=== PATIENT | female | born 1950 | race African-American/Black ===

== ENCOUNTER 2018-01-16 13:53 | Emergency (ER) | payer MEDICARE, OTHER, SELFPAY ==
[2018-01-16 14:10] VITALS: BP 150/92; PULSE 73; RESP 18; TEMP 36.6; O2SAT 96; BMI 41.1
[2018-01-16] MEDS: PROPARACAINE 0.5% OPHTH SOL 1 DROPS EYE-LEFT (14:13)
--- NOTE | 2018-01-16 14:54 | ED_ITS ---
HPI - Eye Problem <BRENDA Rodriguez - Last Filed: 01/16/18 15:45> General Chief complaint: Eye Problems Stated complaint: left eye pain Time Seen by Provider: 01/16/18 14:26 Source: patient Mode of arrival: ambulatory Limitations: no limitations History of Present Illness HPI Narrative: sudden onset of L eye pain, no injury, and denies any other issues/concerns chief complaint: eye pain and eye redness Onset (ago): day(s) (today) Onset description: sudden Duration: constant Location: left eye Eye Symptoms: foreign body sensation Mechanism: none Severity: moderate Associated symptoms: none Treatments Prior to Arrival: none Related Data Home Medications Medication Instructions Recorded Confirmed amlodipine-olmesartan 1 tab PO QDAY #0 12/03/16 Previous Rx's Medication Instructions Recorded amoxicillin-pot clavulanate 875 mg PO BID 10 Days #0 tab 11/29/16 [Augmentin] ciprofloxacin HCl [Cipro] 500 mg PO BID #20 tab 12/03/16 hydrocodone-acetaminophen [[place]] 1 tab PO Q4HP PRN #7 tab 12/03/16 ondansetron [Zofran ODT] 4 mg SUBLINGUAL Q6HP PRN #20 odt 12/03/16 tamsulosin [Flomax] 0.4 mg PO QDAY #14 cap 12/03/16 gentamicin [Gentak] 0.5 inch EYE-LEFT TID #3.5 gram 01/16/18 tramadol [Ultram] 50 mg PO Q6H PRN #10 tab 01/16/18 Allergies Allergy/AdvReac Type Severity Reaction Status Date / Time No Known Drug Allergies Allergy Verified 01/16/18 14:11 Review of Systems <BRENDA Rodriguez - Last Filed: 01/16/18 15:45> Review of Systems All systems reviewed & are unremarkable except as noted in HPI and below Constitutional Reports as per HPI, Reports system reviewed and no additional complaints, except as docu and Denies headache(s) Eyes Reports as per HPI, Denies blind spots, Denies blurry vision, Denies change in vision, Denies eye discharge, Denies floaters, Reports irritation, Denies itchy eyes, Denies loss of peripheral vision, Denies loss of vision, Reports eye pain , Denies requires corrective lenses and Denies photophobia ENT Ears, Nose, Mouth, and Throat: Reports as per HPI, Denies facial pain, Denies headache(s) and Denies neck pain Musculoskeletal Denies neck pain Integumentary/Breasts Denies lesions Neurologic Denies headache(s) and Denies loss of vision Allergic/Immunologic Denies itchy eyes Exam <Lizeth BRENDA Hernandes - Last Filed: 01/16/18 15:45> Initial Vital Signs Initial Vital Signs: Vital Signs Temperature 97.9 F 01/16/18 14:10 Pulse Rate 73 01/16/18 14:10 Respiratory Rate 18 01/16/18 14:10 Blood Pressure 150/92 H 01/16/18 14:10 Pulse Oximetry 96 01/16/18 14:10 Const General: cooperative, healthy appearing, comfortable, well developed and well groomed Nutritional Appearance: obese (mild) Orientation: alert, awake and oriented x3 HENMT Head: normal to inspection, normocephalic and atraumatic Ears: hearing grossly normal bilaterally Nose: external nose normal Face and sinus: normal facial exam Mouth: oral mucosae normal and lip normal Eyes General: appearance normal, both eyes and all related structures Visual Devine: normal visual devine by confrontation Alignment and Position: alignment normal and position normal Periorbital: periorbital findings normal Eyelids: eyelids normal Conjunctivae: conjunctivae normal Sclera: sclerae normal Cornea: fluorescein used (L eye examined under wood lamp (black light) using properacaine gtts and fluorescein stain strip, abrasion seen running diagonally across iris) Pupils: PERRL, normal by confrontation and accommodation normal EOM: EOM intact bilaterally Neck Neck: normal visual inspection and full ROM Resp Effort & Inspection: normal respiratory effort and able to speak in complete sentences Back/Spine/Pelvis Cervical Spine: cervical ROM normal Thoracic/Lumbar Spine: thoraco-lumbar ROM limited Skin General: no rashes or lesions noted, elasticity normal and turgor normal Neuro General: alert, awake and oriented x3 Cranial Nerves: CN's II-XI intact bilaterally Cognition: normal cognition Speech: speech normal Gait: normal gait Motor: muscle tone normal throughout Sensory Exam: no sensory deficits noted Extrem General: normal to inspection and full ROM Psych Appearance: grossly normal Mental Status: mental status grossly normal Speech and Movement: speech and movement normal Mood: congruent mood Affect: normal affect Attitude: cooperative Thought Process: normal Thought Content: normal <Zulema Lopez DO - Last Filed: 01/17/18 08:14> Initial Vital Signs Initial Vital Signs: Vital Signs Temperature 97.9 F 01/16/18 14:10 Pulse Rate 73 01/16/18 14:10 Respiratory Rate 18 01/16/18 14:10 Blood Pressure 150/92 H 01/16/18 14:10 Pulse Oximetry 96 01/16/18 14:10 Course <BRENDA Rodriguez - Last Filed: 01/16/18 15:45> Orders Ordered: Discontinued Medications Proparacaine HCl (Parcaine 0.5% Ophth Kathleen) 1 drops EYE-LEFT NOW ONE Stop: 01/16/18 14:12 Last Admin: 01/16/18 14:13 Dose: 1 drop Vital Signs - 8 hr 01/16/18 14:10 01/16/18 15:19 Temperature 97.9 F Pulse Rate 73 64 Respiratory Rate 18 Blood Pressure 150/92 H Blood Pressure [Left Arm] 126/77 Pulse Oximetry 96 96 <Zulema Lopez DO - Last Filed: 01/17/18 08:14> Orders Ordered: Discontinued Medications Proparacaine HCl (Parcaine 0.5% Ophth Kathleen) 1 drops EYE-LEFT NOW ONE Stop: 01/16/18 14:12 Last Admin: 01/16/18 14:13 Dose: 1 drop Vital Signs - 8 hr 01/16/18 14:10 01/16/18 15:19 Temperature 97.9 F Pulse Rate 73 64 Respiratory Rate 18 Blood Pressure 150/92 H Blood Pressure [Left Arm] 126/77 Pulse Oximetry 96 96 MDM - Eye Problem <BRENDA Rodriguez - Last Filed: 01/16/18 15:45> Differential Diagnosis Likely corneal abrasion, conjunctivitis, acute iritis and glaucoma Discharge Plan Departure Patient Disposition: Home Clinical Impression: Corneal abrasion Discharge Date/Time: 01/16/18 15:25 Interventions: ED Discharge Assessment Last Done: 01/16/18 15:25 Instructions: DI for Corneal Abrasion Prescriptions: New gentamicin [Gentak] 0.3 % (3 mg/gram) ointment 0.5 inch EYE-LEFT TID Qty: 3.5 RF: 0 tramadol [Ultram] 50 mg tablet 50 mg PO Q6H PRN (Reason: pain) Qty: 10 RF: 0 No Action amoxicillin-pot clavulanate [Augmentin] 875 MG/125 MG tablet 875 mg PO BID 10 Days Qty: 0 RF: 0 amlodipine-olmesartan 10 MG/20 MG tablet 1 tab PO QDAY Qty: 0 RF: 0 hydrocodone-acetaminophen [[place]] 5 MG/325 MG tablet 1 tab PO Q4HP PRNQty: 7 RF: 0 ciprofloxacin HCl [Cipro] 500 MG tablet 500 mg PO BID Qty: 20 RF: 0 tamsulosin [Flomax] 0.4 MG capsule,extended release 24hr 0.4 mg PO QDAY Qty: 14 RF: 0 ondansetron [Zofran ODT] 4 MG tablet,disintegrating 4 mg Sublingual Q6HP PRNQty: 20 RF: 0 Referrals: Edi Patel MD [Non-Staff] - Mauricio Doyle MD [Non-Staff] - None (would recommend follow in 1-2 days for recheck ) Provider,Conversion [Non-Staff] - Matthew Barraza MD [Non-Staff] - <Zulema Lopez DO - Last Filed: 01/17/18 08:14> Cosign ED Attending Cosignature Attestation: I was immediately available in the department for consultation. Documentation has been reviewed. I agree with assessment and plan.
[2018-01-16 15:19] VITALS: BP 126/77; PULSE 64; O2SAT 96
== END 2018-01-16 15:25 | disposition home or self-care (01) ==
PROVIDERS: Emergency Provider Nurse Practitioner
DX: S05.02XA Injury of conjunctiva and corneal abrasion without foreign body, left eye, initial encounter (principal)
CPT/HCPCS: 99283

== ENCOUNTER 2019-02-21 13:19 | Emergency (ER) | payer MEDICARE, OTHER, SELFPAY ==
--- NOTE | 2019-02-21 | DI.CT.S_ITS ---
PROCEDURE: CT HEAD/BRAIN WO CON INDICATIONS: VERTIGO TECHNIQUE: Noncontrast 4.5 mm thick angled axial sections acquired from the foramen magnum to the vertex, with coronal and sagittal reformats. For radiation dose reduction, the following was used: automated exposure control, adjustment of mA and/or kV according to patient size. COMPARISON: None. FINDINGS: Image quality: Excellent. CSF spaces: Basal cisterns are patent. No extra-axial fluid collections. Ventricles are normal in size and shape. Brain: No midline shift. No intracranial masses or hemorrhage. Harry-white matter interface is normal. Calcification in the right parietal lobe/tentorium. Left basal ganglia calcification. Periventricular hypodensity consistent with chronic micro-vascular ischemic disease. Skull and face: Calvarium and visualized facial bones are intact, without suspicious lesions. Sinuses: Visualized sinuses and mastoids are clear. IMPRESSION: No acute intracranial abnormality demonstrated. Dictated by: Abiodun Quinonez M.D. on 02/21/2019 at 14:55 Approved by: Abiodun Quinonez M.D. on 02/21/2019 at 14:57
[2019-02-21 13:41] VITALS: BP 155/91; PULSE 66; RESP 15; TEMP 36.9; O2SAT 98; BMI 43.9
--- NOTE | 2019-02-21 14:02 | ED.DIZZY ---
HPI - Dizziness General Chief Complaint: Dizziness Stated Complaint: vertigo,unsteady Time Seen by Provider: 02/21/19 14:02 Source: patient and family Mode of arrival: Wheelchair Limitations: no limitations History of Present Illness HPI Narrative: This is a 69-year-old female comes to the emergency department with complaint of vertigo like symptoms. Patient states it feels like the room is spinning. When she is lying flat moves her head or if she stands up and tries to walk she feels very off balance. Patient states she has had similar symptoms in the past but not this intense or for this long.. Patient states symptoms started on Wednesday she states with prior episodes she has never taken medication or come to the hospital or been evaluated. She denies headache. She denies any vision changes. She denies any cold cough or congestion or nasal drainage. Patient any facial droop or difficulty with speech. She denies any numbness or weakness in her extremities or feeling weak on the left versus right side. She states she had a little bit of nausea earlier today but not currently. She has not had any vomiting. Denies issues with bowel movements, denies issues with urination. Patient states she takes medication for blood pressure. She denies surgery except for a small cyst removed from her anterior chest couple weeks ago. No tobacco, alcohol or illicit. Related Data Home Medications Medication Instructions Recorded Confirmed Calcium Tablet 1 tab PO DAILY 02/21/19 02/21/19 Excedrin Tablet 1 tab PO PRN PRN 02/21/19 02/21/19 allopurinol 300 mg PO DAILY 02/21/19 02/21/19 benazepril 20 mg PO DAILY 02/21/19 02/21/19 indomethacin 25 mg PO TID PRN 02/21/19 02/21/19 Previous Rx's Medication Instructions Recorded meclizine 25 mg PO TID PRN #20 tab 02/21/19 Allergies Allergy/AdvReac Type Severity Reaction Status Date / Time No Known Drug Allergies Allergy Verified 02/21/19 13:41 Review of Systems Review of Systems ROS Unobtainable: All systems reviewed & are unremarkable except as noted in HPI and below Constitutional Constitutional: Denies chills, Denies fever(s), Denies frequent falls, Denies headache(s), Denies lethargy and Denies weakness Eyes Eyes: Denies blurry vision and Denies change in vision ENT Ears, Nose, Mouth, and Throat: Denies abnormal hearing, Reports vertigo, Denies otalgia, Denies headache(s), Denies nasal congestion, Reports disequilibrium and Denies post nasal drip Cardiovascular Cardiovascular: Denies chest pain, Denies diaphoresis, Denies syncope, Denies irregular heart rhythm, Denies lightheadedness, Denies palpitations, Denies dyspnea and Denies dyspnea on exertion Respiratory Respiratory: Denies change in phlegm color, Denies chest congestion, Denies cough, Denies dyspnea and Denies dyspnea on exertion Gastrointestinal Gastrointestinal: Denies abdominal pain, Denies change in bowel habits, Denies constipation, Denies diarrhea, Reports nausea and Denies vomiting Genitourinary Genitourinary: Denies hematuria, Denies urinary frequency, Denies dysuria, Denies flank pain and Denies urinary urgency Musculoskeletal Musculoskeletal: Reports as per HPI, Denies abnormal gait, Denies muscle weakness, Denies numbness and Denies tingling Integumentary/Breasts Skin/Breast: Denies erythema and Denies rash Neurologic Neurologic: Reports as per HPI, Denies abnormal hearing, Denies abnormal speech, Denies abnormal gait, Denies confusion, Reports vertigo, Denies syncope, Denies frequent falls, Denies headache(s), Denies focal weakness, Denies numbness, Denies sensory deficit, Denies tingling, Denies paresthesias, Reports disequilibrium and Denies weakness Psychiatric Psychiatric: Denies confusion Endocrine Endocrine: Denies palpitations Patient History Medical History (Updated 02/21/19 @ 14:27 by Bela Hughes DO) Hypertension (Acute) Social History (Updated 02/21/19 @ 14:25 by Bela Hughes DO) marital status: Smoking Status: Never smoker alcohol intake frequency: holidays/special occasions only Substance Use Type: does not use Exam Narrative Exam Narrative: GEN: well nourished, well appearing obese female, alert and oriented x 3, patient appears to be in mild distress. HEENT: Atraumatic, pupils are equal round reactive to light, extraocular movements are intact, no nystagmus, nares are clear, TMs are clear with no fluid, there is no conjunctival pallor. Throat is clear without any exudates, erythema, tonsillar enlargement or uvular deviation HEART: Regular rate and rhythm without murmur, clicks, rubs. Pulses are equal in upper and lower extremities LUNGS:Lungs clear to auscultation, no wheezes, rales, crackles, chest moves symmetrically, no tachypnea or accessory muscle use. ABD:bowel sounds normal, soft, non-tender, no guarding, rebound, rigidity, no masses noted, no hepatosplenomegaly :No CVA tenderness, MSCL: Non-tender, no muscle atrophy, muscles strength 5/5 upper and lower extremities, full range of motion NEURO:CN 2-12 intact, sensation normal, reflexes 2/4 upper and lower extremities. finger nose finger test normal, heel carlton test normal SKIN: Petechiae, no ecchymosis, no erythema or rash. Initial Vital Signs Initial Vital Signs: Vital Signs Temperature 98.4 F 02/21/19 13:41 Pulse Rate 66 02/21/19 13:41 Respiratory Rate 15 02/21/19 13:41 Blood Pressure 155/91 H 02/21/19 13:41 Pulse Oximetry 98 02/21/19 13:41 Scores NIH Stroke Scale Level of Conciousness: Alert, keenly responsive Ask month/age: Answers both questions correctly. Open/close eyes, close hand: Performs both tasks correctly Best gaze horizontal: Normal Visual cho: No visual loss Facial palsy: Normal symetrical movement Left arm drift: No drift for full 10 sec Right arm drift: No drift for full 10 sec Left leg drift: No drift for full 10 sec Right leg drift: No drift for full 10 sec Limb ataxia: Absent Sensory on face/arms/legs: Normal, no sensory loss Best language: No aphasia, normal Dysarthria: Normal Extinction or inattention: No abnormality Total NIH Stroke scale score: 0 Course Orders Ordered: ED Orders 02/21/19 13:44 EKG-12 Lead Stat 02/21/19 14:20 XR chest 1V Stat 02/21/19 15:16 Complete Blood Count AUTO DIFF Stat Comprehensive Metabolic Panel Stat Troponin I Stat Discontinued Medications Sodium Chloride (Normal Saline 0.9%) 1,000 mls @ 150 mls/hr IV CONT LAVELL Last Infusion: 02/21/19 16:45 Dose: 150 mls/hr Documented by: Admin: 02/21/19 15:18 Dose: 150 mls/hr Documented by: BTONER Meclizine HCl (Antivert) 50 mg PO NOW ONE Stop: 02/21/19 14:22 Last Admin: 02/21/19 15:02 Dose: 50 mg Documented by: TIANA Vital Signs Vital signs: Vital Signs - 8 hr 02/21/19 13:41 02/21/19 14:16 02/21/19 15:00 Temperature 98.4 F Pulse Rate 66 59 L 65 Respiratory Rate 15 13 18 Blood Pressure 155/91 H Blood Pressure [Right Arm] 157/83 H 152/85 H Pulse Oximetry 98 97 02/21/19 16:45 Temperature Pulse Rate 64 Respiratory Rate 19 Blood Pressure 133/82 Blood Pressure [Right Arm] Pulse Oximetry 96 MDM - Dizziness Lab Data Result diagrams: 02/21/19 15:16 02/21/19 15:16 Labs: Lab Results 02/21/19 02/21/19 Range/Units 15:16 15:16 WBC 5.3 (4.5-11.0) X10^3/uL RBC 5.55 H (4.0-5.2) X10^6/uL Hgb 13.3 (12.0-16.0) g/dL Hct 40.6 (36-46) % MCV 73.1 L (80-100) fL MCH 24.0 L (26-34) PG MCHC 32.8 (30-36) % RDW 17.5 H (11.6-14.8) % Plt Count 284 (150-400) X10^3/uL Neut % (Auto) 58.0 (50-75) % Lymph % (Auto) 32.9 (25-40) % [place] % (Auto) 6.3 (3-14) % Eos % (Auto) 1.6 L (2-4) % Baso % (Auto) 1.2 (0-2) % Neut # (Auto) 3100 (8899-1528) /uL Lymph # (Auto) 1700 (9537-1085) /uL [place] # (Auto) 300 (0-900) /uL Eos # (Auto) 100 (0-450) /uL Baso # (Auto) 100 (0-100) /uL Sodium 141 (137-145) mmol/L Potassium 4.3 (3.4-5.1) mmol/L Chloride 106 (98-107) mmol/L Carbon Dioxide 26 (22-32) mmol/L BUN 12 (7-17) mg/dL Creatinine 1.10 H (0.52-1.04) mg/dL Estimated GFR 49.1 L (>60) mL/min BUN/Creatinine Ratio 10.9 (6-22) Glucose 111 H (80-110) mg/dL Calcium 9.6 (8.4-10.2) mg/dL Total Bilirubin 0.4 (0.2-1.3) mg/dL AST 30 (14-36) IU/L ALT 27 (<35) IU/L Alkaline Phosphatase 82 (38-126) U/L Troponin I < 0.012 (0.01-0.034) ng/mL Total Protein 7.6 (6.3-8.2) g/dL Albumin 4.3 (3.5-5.0) g/dL Globulin 3.3 (1.7-4.1) g/dL Albumin/Globulin Ratio 1.3 (1.0-2.8) MDM Narrative Medical decision making narrative: Patient likely is having recurrence of her typical vertigo symptoms although this has been longer and more intense than past episodes. She does not have any neurologic changes that are suspicious for stroke today but plan for imaging, and lab work as patient has had symptoms intermittently over the past but has never been evaluated. Patient is feeling better while she sits. Head CT and chest x-ray are negative, EKG does not show any acute findings that are suspicious for cause of her vertigo like symptoms. Lab work microcytic but she is not anemic. No elevated white count. Patient's electrolytes are normal, creatinine is 1.1 but her normal baseline is 1 so this is quite close to her normal. Glucose is 111 today. LFTs are normal with a normal troponin. Discussed with patient I suspect she is having recurrence of her vertigo. Plan to continue meclizine, follow up with ENT. We discussed signs and symptoms to watch for and reasons to return emergently. She did feel safe to return home today. Discharge Plan Departure Patient Disposition: Home Clinical Impression: Vertigo Discharge Date/Time: 02/21/19 16:46 Activity Restrictions/Additional Instructions: Follow-up with primary care in the next 2-3 days for recheck. You may wish to follow up with ENT regarding vertigo for further evaluation. Call for an appointment at the number occluded below. You may take meclizine 1-2 tablets every 8 hours as needed for symptoms. Return to the emergency department for fevers greater 100.4F, altered mental status, confusion, new vision changes, new weakness, numbness, loss of sensation, difficulty with speech, persistent vomiting or other new or concerning symptoms. Prescriptions: New meclizine 25 mg tablet,chewable 25 mg PO TID PRN (Reason: dizziness) Qty: 20 RF: 0 No Action indomethacin 25 mg capsule 25 mg PO TID PRN (Reason: pain) RF: 0 benazepril 20 mg tablet 20 mg PO DAILY RF: 0 allopurinol 300 mg tablet 300 mg PO DAILY RF: 0 Calcium Tablet 1 tab PO DAILY RF: 0 Excedrin Tablet 1 tab PO PRN PRN (Reason: Headache) RF: 0 Referrals: Don Chacon MD [Physician] -
[2019-02-21 14:16] VITALS: BP 157/83; PULSE 59; RESP 13; O2SAT 97
--- NOTE | 2019-02-21 14:20 | DI.RAD.S_ITS ---
PROCEDURE: XR CHEST 1V INDICATIONS: vertigo symptoms TECHNIQUE: One view of the chest was acquired. COMPARISON: Lung bases on CT . FINDINGS: Surgical changes and devices: None. Lungs and pleura: Lungs are clear. No pleural effusions or pneumothorax. Mediastinum: Mediastinal contours appear normal. Small hiatal hernia seen on prior CT is not well appreciated. Heart size is normal. Bones and chest wall: No suspicious bony lesions. Overlying soft tissues appear unremarkable. IMPRESSION: No acute cardiopulmonary abnormality. Dictated by: Abiodun Quinonez M.D. on 02/21/2019 at 15:01 Approved by: Abiodun Quinonez M.D. on 02/21/2019 at 15:01
[2019-02-21 15:00] VITALS: BP 152/85; PULSE 65; RESP 18
[2019-02-21] MEDS: MECLIZINE HCL 12.5 MG TABLET 50 MG PO (15:02)
[2019-02-21] MEDS: SODIUM CHLORIDE 0.9% 1,000 ML 150 ML IV (15:18)
[2019-02-21 15:23] LABS: Add Manual Diff / Slide Review NO; Basophils Absolute Auto 100 /uL (0-100); Basophils Percent Auto 1.2 % (0-2); Eosinophils Absolute Auto 100 /uL (0-450); Eosinophils Percent Auto 1.6 % (2-4); Hematocrit 40.6 % (36-46); Hemoglobin 13.3 g/dL (12.0-16.0); Lymphocytes Absolute Auto 1700 /uL (1100-4500); Lymphocytes Percent Auto 32.9 % (25-40); Mean Corpuscular HGB Conc 32.8 % (30-36); Mean Corpuscular Volume 73.1 fL (80-100); Monocytes Absolute Auto 300 /uL (0-900); Monocytes Percent Auto 6.3 % (3-14); Neutrophils Absolute Auto 3100 /uL (1500-7000); Platelet Count 284 X10^3/uL (150-400); Red Blood Cell Count 5.55 X10^6/uL (4.0-5.2); Red Cell Distribution Width 17.5 % (11.6-14.8); White Blood Cell Count 5.3 X10^3/uL (4.5-11.0)
[2019-02-21 15:45] LABS: Alanine Aminotransferase 27 IU/L (<35); Albumin 4.3 g/dL (3.5-5.0); Albumin Globulin Ratio 1.3 (1.0-2.8); Alkaline Phosphatase 82 U/L (38-126); Aspartate Aminotransferase 30 IU/L (14-36); BUN Creatinine Ratio 10.9 (6-22); Bilirubin Total 0.4 mg/dL (0.2-1.3); Blood Urea Nitrogen 12 mg/dL (7-17); Calcium 9.6 mg/dL (8.4-10.2); Carbon Dioxide 26 mmol/L (22-32); Chloride 106 mmol/L (98-107); Estimated Glomerular Filt Rate 49.1 mL/min (>60); Globulin 3.3 g/dL (1.7-4.1); Glucose 111 mg/dL (80-110); HEMOLYSIS < 15 (0-50); Potassium 4.3 mmol/L (3.4-5.1); Sodium 141 mmol/L (137-145); Total Protein 7.6 g/dL (6.3-8.2)
[2019-02-21 15:57] LABS: Troponin I < 0.012 ng/mL (0.01-0.034)
[2019-02-21 16:45] VITALS: BP 133/82; PULSE 64; RESP 19; O2SAT 96
== END 2019-02-21 16:46 | disposition home or self-care (01) ==
PROVIDERS: Emergency Provider Emergency Medicine
DX: R42 Dizziness and giddiness (principal); R11.0 Nausea; R79.89 Other specified abnormal findings of blood chemistry
CPT/HCPCS: 36415; 70450; 71045; 80053; 84484; 85025; 93005; 96360; 99283; 99285

== ENCOUNTER 2019-04-03 07:09 | Day surgery (SDC) | payer MEDICARE, OTHER, SELFPAY ==
[2019-04-03] VITALS (14 sets, daily range): BP systolic 66–100; BP diastolic 36–65; PULSE 81–109; RESP 17–23; TEMP 35.9–36.6; O2SAT 92–98; BMI 44.0
[2019-04-03] MEDS: SODIUM CHLORIDE 0.9% 1,000 ML 200 ML IV ×2 (07:55→08:44)
--- NOTE | 2019-04-03 08:01 | SUR.PREOP ---
Pt reported feeling tired. BP monitor placed. IV fluids running
--- NOTE | 2019-04-03 08:23 | PM.HP.1 ---
History of Present Illness History of Present Illness Date Patient Seen: 04/03/19 Time Patient Seen: 08:32 Chief complaint: [id number] Narrative: Patient presents for colorectal screening. They had a prior colonoscopy 10 years ago that was normal. No personal or family history of colon cancer. On further history denies any recent gastrointestinal symptoms. No nausea, vomiting, abdominal pain, loss of appetite, unexplained weight loss, change in bowel habits, diarrhea, constipation, melena, hematochezia, or bright red blood per rectum. Patient History Medical History Hypertension (Acute) Refusal of blood transfusions as patient is [employer] (Acute) Surgical History History of hysterectomy (Acute) Family & Social History Tobacco & Substance use: Smoking Status Never smoker alcohol intake frequency holiday/special occasion Substance Use Type does not use Meds Home Medications and Allergies Home Medications Medication Instructions Recorded Confirmed Type allopurinol 300 mg PO DAILY 02/21/19 04/03/19 History benazepril 20 mg PO DAILY 02/21/19 04/03/19 History calcium carbonate [Calcium 600] 600 mg PO BID 02/21/19 04/03/19 History indomethacin 25 mg PO TID PRN 02/21/19 04/03/19 History meclizine 25 mg PO TID PRN #20 tab 02/21/19 04/03/19 Rx hydrochlorothiazide 12.5 mg PO DAILY 04/03/19 04/03/19 History Allergies Allergy/AdvReac Type Severity Reaction Status Date / Time No Known Drug Allergies Allergy Verified 04/03/19 07:30 Review of Systems Review of Systems Narrative: A complete review of systems is negative except as noted in the HPI Exam Vital Signs (past 8 hours): - 04/03/19 07:48 04/03/19 07:50 04/03/19 08:02 Temperature 97.2 F L Pulse Rate 109 H 109 H 101 H Respiratory Rate 20 Blood Pressure 68/36 L 66/43 L 77/49 L Pulse Oximetry 98 Oxygen Delivery Method Room Air Narrative Exam Narrative: General-no acute distress, well nourished HEENT-moist mucous membranes, no scleral icterus Neck-supple, no lymphadenopathy Chest- non labored respirations, clear to auscultation bilaterally Cardiac-regular rate no peripheral edema Abdomen-soft, nontender, non distended Extremities-warm, well perfused Neurological-alert and oriented, no focal deficits Assessment & Plan Assessment and plan (1) Screening for colon cancer: Current visit: Yes Status: Acute Assessment & Plan narrative: The patient requires colorectal screening and colonoscopy is recommended. Technical details were discussed. Risks, benefits, alternatives explained. Risks including but not limited to myocardial infarction, aspiration, bleeding, pain, missed lesion, incomplete examination, need for further radiographic studies, colonic perforation, and need for major abdominal surgery were discussed. All questions were answered to their satisfaction, and they are in agreement with this plan.
--- NOTE | 2019-04-03 08:28 | SUR.PREOP ---
Dr. Sánchez evaluated patient. Pressure bag applied to IV fluids per MD.
[2019-04-03] MEDS: fentaNYL 250 MCG/5 ML INJ IV (08:45)
[2019-04-03] MEDS: MIDAZOLAM 5 MG/5 ML VIAL IV (08:45)
--- NOTE | 2019-04-03 09:07 | PM.OP.ENDO ---
Operative Date/Time/Diagnoses Date of procedure: 04/03/19 Time of procedure: 09:07 Pre-op diagnosis: Screening colonoscopy Post-op diagnosis: same Procedure & Clinicians Study performed: Colonoscopy Same procedure as scheduled: Yes Indications: 69-year-old female with a normal colonoscopy 10 years ago presents for routine screening. Surgeon: Octavio Sánchez Procedure Notes SCOAP/Timeout: Performed Procedure in detail: Patient placed in left lateral decubitus position. Time out was performed. Procedural sedation was administered with Versed and Fentanyl. A rectal exam demonstrated no external hemorrhoids no internal masses. Colonoscopy scope was placed into the rectum and advanced through the colon to the cecum. The ileocecal valve was identified. The scope was then slowly withdrawn examining colon thoroughly in all directions. The colonoscopy was notable for the following 1. Sigmoid diverticulosis 2. No masses polyps 3. Quality of prep excellent Scope withdrawal time: 6 Sedation minutes: 18 Findings: diverticulosis Specimen(s): none sent Complications: none Impression: Diverticulosis Post-procedure Recommendations: Colonscopy in 10 years Disposition: same day surgery
--- NOTE | 2019-04-03 09:31 | SUR.PHASEI ---
sleeping on arrival, resp even and regular, skin warm and dry.
--- NOTE | 2019-04-03 09:58 | SUR.PHASEI ---
to OPD, denies dizziness or light-headedness, Tolerating PO well. Denies pain
== END 2019-04-03 10:20 | disposition home or self-care (01) ==
PROVIDERS: Visit Provider Surgery
PROC: 0DJD8ZZ Inspection of Lower Intestinal Tract, Via Natural or Artificial Opening Endoscopic (ICD-10-PCS; CPT 45378; principal; 2019-04-03 08:45)
DX: Z12.11 Encounter for screening for malignant neoplasm of colon (principal); I10 Essential (primary) hypertension; K57.30 Diverticulosis of large intestine without perforation or abscess without bleeding
CPT/HCPCS: G0121; 99152; J2250; J3010

== ENCOUNTER → 2020-05-30 10:26 | Outpatient (CLI) | payer MEDICARE, OTHER, SELFPAY ==
--- NOTE | 2020-05-30 | DI.MG.S_ITS ---
BILATERAL DIGITAL SCREENING MAMMOGRAM 3D/2D WITH CAD: 05/30/2020 CLINICAL: Routine screening. Comparison is made to exams dated: 03/14/2018 mammogram and 04/25/2019 mammogram - [facility]. The tissue of both breasts is heterogeneously dense. This may lower the sensitivity of mammography. Current study was also evaluated with a Computer Aided Detection (CAD) system. No significant masses, calcifications, or other findings are seen in either breast. There has been no significant interval change. IMPRESSION: NEGATIVE There is no mammographic evidence of malignancy. A 1 year screening mammogram is recommended. This exam was interpreted at Station ID: [id number]. NOTE: For mammograms, a report in lay terms will be sent to the patient. Approximately 15% of breast malignancies will not be visualized mammographically. In the management of a palpable breast mass, a negative mammogram must not discourage biopsy of a clinically suspicious lesion. Electronically Signed By: Davis dumont/salvatore:05/30/2020 13:45:25 letter sent: Normal Exam ACR BI-RADS Category 1: Negative [id number]
== END ==
PROVIDERS: PCP Internal Medicine; Referring Provider Internal Medicine; Visit Provider Internal Medicine
DX: Z12.31 Encounter for screening mammogram for malignant neoplasm of breast (principal)
CPT/HCPCS: 77063; 77067

== ENCOUNTER 2021-04-03 14:24 | Emergency (ER) | payer MEDICARE, OTHER, SELFPAY ==
[2021-04-03] VITALS (14 sets, daily range): BP systolic 150–246; BP diastolic 68–113; PULSE 54–60; RESP 14–29; TEMP 36.6; O2SAT 94–97
[2021-04-03] MEDS: diphenhydrAMINE 50 MG/ML VIAL 25 MG IV (14:49)
[2021-04-03] MEDS: FAMOTIDINE 20 MG/2 ML VIAL IV (14:49)
[2021-04-03] MEDS: methylPREDNISolone 125 MG/2 ML VIAL IV (14:51)
--- NOTE | 2021-04-03 15:06 | ED_ITS ---
HPI - Allergic Reaction <Kin Neely PA-C - Last Filed: 04/03/21 19:36> General Chief complaint: Allergic Reaction Stated complaint: Tongue is swollen Time Seen by Provider: 04/03/21 14:43 Source: patient Mode of arrival: Ambulatory History of Present Illness HPI narrative: Patient is a 71-year-old with history of hypertension presenting to the emergency department today for evaluation tongue began this. Patient states that she awoke with the tongue swelling is morning, but notes that the swelling has gradually worsened throughout the day. She notes that her time is swollen ?twice its normal size?. Of note, patient states that she has been taking benazepril for past 3 years. Patient denies any new medications or new foods and she states that she is never experienced symptoms like this in the past. Additionally, she does not report any known allergies. No fever, chills, chest pain, cough, shortness of breath, throat swelling, difficulty swallowing, abdominal pain, nausea, vomiting, diarrhea, dysuria, hematuria, rash, pruritus, or additional swelling elsewhere reported. No further concerns were voiced at this time. Related Data Home Medications Medication Instructions Recorded Confirmed allopurinol 300 mg tablet 300 mg PO DAILY 02/21/19 04/03/21 benazepril 20 mg tablet 20 mg PO DAILY 02/21/19 04/03/21 calcium carbonate 600 mg calcium 600 mg PO BID 02/21/19 04/03/21 (1,500 mg) tablet (Calcium) indomethacin 25 mg capsule 25 mg PO TID PRN 02/21/19 04/03/19 hydrochlorothiazide 12.5 mg capsule 12.5 mg PO DAILY 04/03/19 04/03/21 Previous Rx's Medication Instructions Recorded meclizine 25 mg chewable tablet 25 mg PO TID PRN #20 tab 02/21/19 amlodipine 2.5 mg tablet 2.5 mg PO DAILY #14 tab 04/03/21 Allergies Allergy/AdvReac Type Severity Reaction Status Date / Time No Known Drug Allergies Allergy Verified 04/03/21 14:34 Review of Systems <Kin Neely PA-C - Last Filed: 04/03/21 19:36> Constitutional Constitutional: Denies chills, Denies fatigue, Denies fever(s), Denies frequent falls, Denies lethargy and Denies weakness ENT Ears, Nose, Mouth, and Throat: Denies change in voice, Denies dizziness, Denies neck pain, Denies sore throat, Denies throat swelling and Reports tongue swelling Cardiovascular Cardiovascular: Denies chest pain, Denies irregular heart rhythm, Denies lightheadedness, Denies palpitations, Denies dyspnea, Denies dyspnea on exertion and Denies orthopnea Respiratory Respiratory: Denies cough, Denies dyspnea, Denies dyspnea on exertion and Denies wheezing Gastrointestinal Gastrointestinal: Denies abdominal pain, Denies change in bowel habits, Denies diarrhea, Denies nausea and Denies vomiting Genitourinary Genitourinary: Denies hematuria, Denies flank pain, Denies urinary incontinence and Denies urinary urgency Musculoskeletal Musculoskeletal: Denies back pain, Denies muscle weakness, Denies neck pain, Denies numbness and Denies tingling Integumentary/Breasts Skin/Breast: Denies pruritus, Denies erythema, Denies rash and Denies wounds Neurologic Neurologic: Denies dizziness, Denies frequent falls, Denies numbness, Denies tingling and Denies weakness Endocrine Endocrine: Denies fatigue and Denies palpitations Allergic/Immunologic Allergic/Immunologic: Denies urticaria, Denies throat swelling, Reports tongue swelling and Denies wheezing Patient History <Kin Neely PA-C - Last Filed: 04/03/21 19:36> Medical History Hypertension Refusal of blood transfusions as patient is [employer] Surgical History History of hysterectomy Social History marital status: Smoking Status: Never smoker Smoking Status: Never smoker alcohol intake frequency: holidays/special occasions only Substance Use Type: does not use Exam <Kin Neely PA-C - Last Filed: 04/03/21 19:36> Narrative Exam Narrative: GENERAL: 71 year old patient appears stated age. Well-developed patient, in mild distress. HEAD: Atraumatic. Normocephalic. EYES: Pupils equal round and reactive. Extraocular motions intact. No scleral icterus. No injection or drainage. ENT: Nose without bleeding, purulent drainage. Throat without erythema, tonsillar hypertrophy or exudate. Airway patent. Significant swelling noted throughout the tongue. NECK: Trachea midline. Non tender CARDIOVASCULAR: Regular rate and rhythm without murmurs, gallops, or rubs. RESPIRATORY: Clear to auscultation. Breath sounds equal bilaterally. No wheezes, rales, or rhonchi. No increased work of breathing, no respiratory distress. GASTROINTESTINAL: Abdomen soft, non-tender, nondistended. EXTREMITIES: No edema or joint tenderness. BACK: Nontender without deformity or crepitance. No flank tenderness. NEURO: AOx3. SKIN: No rash or erythema of visible areas Initial Vital Signs Initial Vital Signs: Vital Signs Temperature 98 F 04/03/21 14:32 Pulse Rate 55 L 04/03/21 14:32 Respiratory Rate 18 04/03/21 14:32 Blood Pressure 246/113 H 04/03/21 14:32 Pulse Oximetry 96 04/03/21 14:32 <Giovana Javier MD - Last Filed: 04/09/21 08:14> Initial Vital Signs Initial Vital Signs: Vital Signs Temperature 98 F 04/03/21 14:32 Pulse Rate 55 L 04/03/21 14:32 Respiratory Rate 18 04/03/21 14:32 Blood Pressure 246/113 H 04/03/21 14:32 Pulse Oximetry 96 04/03/21 14:32 Course <Kin Neely PA-C - Last Filed: 04/03/21 19:36> Course Course Narrative: Benadryl, Solu-Medrol, Pepcid, tranexamic acid, IV fluids administered. Orders Ordered: Discontinued Medications Diphenhydramine HCl (Diphenhydramine 50 Mg/Ml Vial) 25 mg IV NOW ONE Stop: 04/03/21 14:43 Last Admin: 04/03/21 14:49 Dose: 25 mg Documented by: AMOL Famotidine (Famotidine 20 Mg/2 Ml Vial) 20 mg IV NOW LAVELL Last Admin: 04/03/21 14:49 Dose: 20 mg Documented by: AMOL Tranexamic Acid 1,000 mg/ (Sodium Chloride) 100 mls @ 200 mls/hr IV NOW ONE Stop: 04/03/21 15:34 Last Infusion: 04/03/21 16:28 Dose: 0 mls/hr Documented by: Admin: 04/03/21 15:53 Dose: 200 mls/hr Documented by: AMOL Sodium Chloride (Normal Saline 0.9%) 1,000 mls @ 1,000 mls/hr IV BOLUS ONE Stop: 04/03/21 16:04 Last Infusion: 04/03/21 18:36 Dose: 0 mls/hr Documented by: Admin: 04/03/21 15:53 Dose: 1,000 mls/hr Documented by: AMOL Methylprednisolone (Methylprednisolone 125 Mg/2 Ml Vial) 125 mg IV NOW ONE Stop: 04/03/21 14:42 Last Admin: 04/03/21 14:51 Dose: 125 mg Documented by: AMOL Reevaluation(s) Reevaluation #1: Checked in on patient with Dr. Javier. TXA is approximately 50% completed and patient states that she is feeling better and believes that her tongue isn't as swollen as it originally was. On exam a the left lateral aspect of the tongue does appear less swollen than initially noted. Patient still denies sensations of throat swelling, shortness of breath, difficulty breathing, difficulty swallowing, rash, pruritus, or any other concerning symptoms. Time: 16:20 Vital Signs Vital signs: Vital Signs - 8 hr 04/03/21 14:32 04/03/21 15:34 04/03/21 16:00 Temperature 98 F Pulse Rate 55 L 55 L 54 L Respiratory Rate 18 14 19 Blood Pressure 246/113 H Pulse Oximetry 96 96 96 04/03/21 16:23 04/03/21 16:30 04/03/21 17:00 Temperature Pulse Rate 55 L 56 L 59 L Respiratory Rate 20 25 H 23 Blood Pressure 185/86 H 176/90 H Pulse Oximetry 95 96 95 04/03/21 17:01 04/03/21 17:30 04/03/21 17:31 Temperature Pulse Rate 59 L 60 60 Respiratory Rate 22 21 20 Blood Pressure 181/86 H 192/89 H Pulse Oximetry 95 97 97 04/03/21 18:00 04/03/21 18:01 04/03/21 18:30 Temperature Pulse Rate 60 60 59 L Respiratory Rate 16 17 29 H Blood Pressure 159/73 H Pulse Oximetry 96 96 97 04/03/21 18:31 04/03/21 19:04 Temperature Pulse Rate 59 L 59 L Respiratory Rate 26 H 16 Blood Pressure 163/74 H 150/68 H Pulse Oximetry 97 94 <Giovana Javier MD - Last Filed: 04/09/21 08:14> Orders Ordered: Discontinued Medications Diphenhydramine HCl (Diphenhydramine 50 Mg/Ml Vial) 25 mg IV NOW ONE Stop: 04/03/21 14:43 Last Admin: 04/03/21 14:49 Dose: 25 mg Documented by: AMOL Famotidine (Famotidine 20 Mg/2 Ml Vial) 20 mg IV NOW LAVELL Last Admin: 04/03/21 14:49 Dose: 20 mg Documented by: AMOL Tranexamic Acid 1,000 mg/ (Sodium Chloride) 100 mls @ 200 mls/hr IV NOW ONE Stop: 04/03/21 15:34 Last Infusion: 04/03/21 16:28 Dose: 0 mls/hr Documented by: Admin: 04/03/21 15:53 Dose: 200 mls/hr Documented by: AMOL Sodium Chloride (Normal Saline 0.9%) 1,000 mls @ 1,000 mls/hr IV BOLUS ONE Stop: 04/03/21 16:04 Last Infusion: 04/03/21 18:36 Dose: 0 mls/hr Documented by: Admin: 04/03/21 15:53 Dose: 1,000 mls/hr Documented by: AMOL Methylprednisolone (Methylprednisolone 125 Mg/2 Ml Vial) 125 mg IV NOW ONE Stop: 04/03/21 14:42 Last Admin: 04/03/21 14:51 Dose: 125 mg Documented by: AMOL Vital Signs Vital signs: Vital Signs - 8 hr 04/03/21 14:32 04/03/21 15:34 04/03/21 16:00 Temperature 98 F Pulse Rate 55 L 55 L 54 L Respiratory Rate 18 14 19 Blood Pressure 246/113 H Pulse Oximetry 96 96 96 04/03/21 16:23 04/03/21 16:30 04/03/21 17:00 Temperature Pulse Rate 55 L 56 L 59 L Respiratory Rate 20 25 H 23 Blood Pressure 185/86 H 176/90 H Pulse Oximetry 95 96 95 04/03/21 17:01 04/03/21 17:30 04/03/21 17:31 Temperature Pulse Rate 59 L 60 60 Respiratory Rate 22 21 20 Blood Pressure 181/86 H 192/89 H Pulse Oximetry 95 97 97 04/03/21 18:00 04/03/21 18:01 04/03/21 18:30 Temperature Pulse Rate 60 60 59 L Respiratory Rate 16 17 29 H Blood Pressure 159/73 H Pulse Oximetry 96 96 97 04/03/21 18:31 04/03/21 19:04 Temperature Pulse Rate 59 L 59 L Respiratory Rate 26 H 16 Blood Pressure 163/74 H 150/68 H Pulse Oximetry 97 94 MDM - Allergic Reaction <Kin Neely PA-C - Last Filed: 04/03/21 19:36> Lab Data Lab results narrative: Reviewed above prior to discharge. MDM Narrative Medical decision making narrative: To consider allergic reaction versus anaphylaxis versus angio edema verses Kevin inhibitor induced angioedema. Overall history in re-examination are reassuring. Discussed with the patient the importance of discontinuing benazepril and the importance of following up with her primary care provider tomorrow. Discussed with the patient beginning a low-dose amlodipine in place of her benazepril and patient agrees to plan. Patient states that she is feeling much better than when she arrived to the emergency department and feels comfortable being discharged home. Strict return precautions were discussed with the patient prior to discharge. Critical Care Time <Kin Neely PA-C - Last Filed: 04/03/21 19:36> Critical Care Time Critical Care Time: Yes Total Critical Care Time: 32 Attestation: Monitor patient for signs of deterioration. <Giovana Javier MD - Last Filed: 04/09/21 08:14> Critical Care Time Attestation: Monitor patient for signs of deterioration. Critical care time is separate from other billable procedures. There is a high probability of a significant, sudden or life-threatening deterioration that requires my full and direct attention, intervention and personal management. This critical care time includes consultation with family and other consulting doctors, review of records, and interpretation of data from labs, EKGs and imaging as well as managements of angioedema with increasing tongue swelling and concern for airway compromise Discharge Plan Departure Patient Disposition: Home Clinical Impression: Angioedema, Adverse reaction to drug Instructions: DI for Angioedema Activity Restrictions/Additional Instructions: *You have been diagnosed with angioedema *What to do: *Please continue to take your regular medications as directed. [X] New medication prescriptions sent to your pharmacy: [facility] - Amlodipine [ ] New medication written as a paper prescription [ ] No new medications given *Please follow up with your primary care provider in 2-3 days, call for an appointment. Let them know you were seen in the Emergency Department and that we ask that you be seen in follow up. We will electronically transmit a record of today's note if your PCP is in our system. *Please discontinue your benazepril. Bring this up to your primary care provider during your next scheduled appointment. *If you do not have a primary care provider please contact the [facility] Resource line at [phone]. They will ask some questions about your medical history and help get you set up with a doctor in the community. *Return to Emergency Department if you should have any new, worsening or concerning symptoms, such as fever greater than 101 F, shaking chills, worsening swelling, shortness of breath, throat swelling, difficulty breathing, persistent vomiting, or other bothersome symptoms. Prescriptions: New amlodipine 2.5 mg tablet 2.5 mg PO DAILY Qty: 14 0RF No Action hydrochlorothiazide 12.5 mg Capsule 12.5 mg PO DAILY 0RF indomethacin 25 mg capsule 25 mg PO TID PRN (Reason: pain) 0RF benazepril 20 mg tablet 20 mg PO DAILY 0RF Label Comments: take 1 tablet by mouth once daily for blood pressure allopurinol 300 mg tablet 300 mg PO DAILY 0RF calcium carbonate [Calcium 600] 600 mg calcium (1,500 mg) Tablet 600 mg PO BID 0RF meclizine 25 mg tablet,chewable 25 mg PO TID PRN (Reason: dizziness) Qty: 20 0RF Referrals: Mercedez Shepherd MD [Primary Care Provider] - <Giovana Javier MD - Last Filed: 04/09/21 08:14> Cosign ED Attending Cosmonishaature Attestation: I was immediately available in the department for consultation throughout this patient's visit. This patient was seen and examined independently and all portions of care were clearly reviews and overseen. I Agree with documentation as above. Giovana Javier MD
[2021-04-03] MEDS: TRANEXAMIC ACID 1,000 MG in SODIUM CHLORIDE 0.9% 100 ML 200 ML IV (15:53)
[2021-04-03] MEDS: SODIUM CHLORIDE 0.9% 1,000 ML 1000 ML IV (15:53)
--- NOTE | 2021-04-03 17:33 | PC.NURSE ---
Francheska reports some improvement of swelling in tongue after infusion of TXA.
== END 2021-04-03 19:05 | disposition home or self-care (01) ==
PROVIDERS: Emergency Provider Physician Assistant; PCP Internal Medicine
DX: T78.3XXA Angioneurotic edema, initial encounter (principal)
CPT/HCPCS: 36415; 96361; 96365; 96375; 99284; J1200; J2930

== ENCOUNTER 2021-05-11 19:50 | Observation (INO) | payer MEDICARE, OTHER, SELFPAY ==
[2021-05-11] VITALS (14 sets, daily range): BP systolic 135–204; BP diastolic 88–119; PULSE 60–81; RESP 14–18; TEMP 36.2; O2SAT 94–97; BMI 43.9
--- NOTE | 2021-05-11 20:06 | ED_ITS ---
HPI - Allergic Reaction General Chief complaint: Allergic Reaction Stated complaint: Lip/hands/feet swelling x7days Time Seen by Provider: 05/11/21 19:58 History of Present Illness HPI narrative: 71-year-old with history of hypertension presenting to the emergency department today for evaluation of swelling of her upper lip and right side of the face over the day. She denies any tongue or throat involvement and has no trouble breathing or rash. She was seen and evaluated about a week ago under relatively similar circumstances and was treated for angioedema thought to be related to the EDUARDO-inhibitor that she had been on. She responded to the medications and had significant improvement over the course of the visit. Her EDUARDO-inhibitor was discontinued and she had been in her normal state of health until earlier today as stated. She denies any pain, she has had no fever or chills. She is not dizzy nor weak or lightheaded Related Data Home Medications Medication Instructions Recorded Confirmed allopurinol 300 mg tablet 300 mg PO DAILY 02/21/19 04/03/21 benazepril 20 mg tablet 20 mg PO DAILY 02/21/19 04/03/21 calcium carbonate 600 mg calcium 600 mg PO BID 02/21/19 04/03/21 (1,500 mg) tablet (Calcium) indomethacin 25 mg capsule 25 mg PO TID PRN 02/21/19 04/03/19 hydrochlorothiazide 12.5 mg capsule 12.5 mg PO DAILY 04/03/19 04/03/21 Previous Rx's Medication Instructions Recorded meclizine 25 mg chewable tablet 25 mg PO TID PRN #20 tab 02/21/19 amlodipine 2.5 mg tablet 2.5 mg PO DAILY #14 tab 04/03/21 Allergies Allergy/AdvReac Type Severity Reaction Status Date / Time EDUARDO Inhibitors Allergy Swelling Verified 05/11/21 20:08 of Lip/Tongue/Throat Patient History Medical History Hypertension Refusal of blood transfusions as patient is Buddhist Surgical History History of hysterectomy Social History marital status: household members: family Smoking Status: Never smoker alcohol intake: current Smoking Status: Never smoker alcohol intake frequency: holidays/special occasions only Substance Use Type: does not use Exam Narrative Exam Narrative: GENERAL: [71] year old patient appears stated age. Well-developed patient, in mild distress. HEAD: Atraumatic. Normocephalic. EYES: Pupils equal round and reactive. Extraocular motions intact. No scleral icterus. No injection or drainage. ENT: Minimal right-sided facial swelling, no tenderness, erythema, induration or fluctuance to suggest infectious source. Swelling of upper lip on the right side to the midline, no intraoral involvement or tongue swelling. Airway patent, patient tolerating secretions Nose without bleeding, purulent drainage. Throat without erythema, tonsillar hypertrophy or exudate. Airway patent. NECK: Trachea midline. Non tender CARDIOVASCULAR: Regular rate and rhythm without murmurs, gallops, or rubs. RESPIRATORY: Clear to auscultation. Breath sounds equal bilaterally. No wheezes, rales, or rhonchi. GASTROINTESTINAL: Abdomen soft, non-tender, nondistended. EXTREMITIES: No edema or joint tenderness. BACK: Nontender without deformity or crepitance. No flank tenderness. NEURO: AOx3. SKIN: No rash or erythema of visible areas Initial Vital Signs Initial Vital Signs: Vital Signs Temperature 97.1 F L 05/11/21 20:02 Pulse Rate 73 05/11/21 20:02 Respiratory Rate 17 05/11/21 20:02 Blood Pressure 183/98 H 05/11/21 20:02 Pulse Oximetry 96 05/11/21 20:02 Course Orders Ordered: ED Orders 05/11/21 20:00 Complete Blood Count AUTO DIFF Stat Comprehensive Metabolic Panel Stat 05/11/21 20:06 Complement C3 Stat Complement C4 Stat 05/11/21 22:46 COVID19 -Nasal swab/Pre-Proc Stat Famotidine (Famotidine 20 Mg/2 Ml Vial) 20 mg IV NOW LAVELL Last Admin: 05/11/21 20:20 Dose: 20 mg Documented by: LORENZA Discontinued Medications Dexamethasone (Dexamethasone 10 Mg/Ml Vial) 10 mg IV NOW ONE Stop: 05/11/21 20:07 Last Admin: 05/11/21 20:20 Dose: 10 mg Documented by: LORENZA Diphenhydramine HCl (Diphenhydramine 50 Mg/Ml Vial) 25 mg IV NOW ONE Stop: 05/11/21 20:07 Last Admin: 05/11/21 20:20 Dose: 25 mg Documented by: LORENZA Tranexamic Acid 1,000 mg/ (Sodium Chloride) 100 mls @ 200 mls/hr IV NOW ONE Stop: 05/11/21 20:35 Last Infusion: 05/11/21 21:11 Dose: 0 mls/hr Documented by: Admin: 05/11/21 20:20 Dose: 200 mls/hr Documented by: LORENZA Reevaluation(s) Reevaluation #1: Patient has minimal change, and likely some worsening of her symptoms despite the above listed medications. She has no tongue or throat involvement, no trouble with secretions, no difficulty swallowing or breathing. Vital Signs Vital signs: Vital Signs - 8 hr 05/11/21 20:02 05/11/21 20:31 05/11/21 20:32 Temperature 97.1 F L Pulse Rate 73 73 74 Respiratory Rate 17 18 Blood Pressure 183/98 H 189/119 H Pulse Oximetry 96 95 94 05/11/21 20:37 05/11/21 21:00 05/11/21 21:30 Temperature Pulse Rate 70 60 61 Respiratory Rate Blood Pressure 199/108 H 200/103 H 196/104 H Pulse Oximetry 96 94 94 05/11/21 22:00 05/11/21 22:30 05/11/21 22:31 Temperature Pulse Rate 64 64 66 Respiratory Rate Blood Pressure 204/96 H 165/93 H Pulse Oximetry 94 94 95 05/11/21 22:45 Temperature Pulse Rate 63 Respiratory Rate 16 Blood Pressure 165/93 H Pulse Oximetry 97 MDM - Allergic Reaction Lab Data Result diagrams: 05/11/21 20:00 05/11/21 20:00 Labs: Lab Results 05/11/21 05/11/21 05/11/21 Range/Units 20:00 20:00 22:46 WBC 6.7 (4.5-11.0) X10^3/uL RBC 5.42 H (4.0-5.2) X10^6/uL Hgb 12.7 (12.0-16.0) g/dL Hct 38.9 (36-46) % MCV 71.8 L (80-100) fL MCH 23.4 L (26-34) PG MCHC 32.6 (30-36) % RDW 18.2 H (11.6-14.8) % Plt Count 305 (150-400) X10^3/uL Neut % (Auto) 58.3 (50-75) % Lymph % (Auto) 32.4 (25-40) % [place] % (Auto) 5.7 (3-14) % Eos % (Auto) 2.4 (2-4) % Baso % (Auto) 1.2 (0-2) % Neut # (Auto) 3900 (8521-9543) /uL Lymph # (Auto) 2200 (9976-7626) /uL [place] # (Auto) 400 (0-900) /uL Eos # (Auto) 200 (0-450) /uL Baso # (Auto) 100 (0-100) /uL Sodium 139 (137-145) mmol/L Potassium 4.0 (3.4-5.1) mmol/L Chloride 109 H (98-107) mmol/L Carbon Dioxide 24 (22-32) mmol/L BUN 26 H (7-17) mg/dL Creatinine 1.16 H (0.52-1.04) mg/dL Estimated GFR 45.9 L (>60) mL/min BUN/Creatinine Ratio 22.4 H (6-22) Glucose 82 (80-110) mg/dL Calcium 10.2 (8.4-10.2) mg/dL Total Bilirubin 0.4 (0.2-1.3) mg/dL AST 27 (14-36) IU/L ALT 30 (<35) IU/L Alkaline Phosphatase 99 (38-126) U/L Total Protein 7.7 (6.3-8.2) g/dL Albumin 4.4 (3.5-5.0) g/dL Globulin 3.3 (1.7-4.1) g/dL Albumin/Globulin Ratio 1.3 (1.0-2.8) SARS-CoV-2 (PCR) Negative (Negative) MDM Narrative Medical decision making narrative: Patient with presumed angioedema and slightly, and slowly worsening symptoms, cannot discharged home, will require hospitalization for ongoing evaluation and possible intervention Discharge Plan Departure Patient Disposition: Admitted as Observation Clinical Impression: Angio-edema Admit Date/Time: 05/11/21 23:15 Admit Provider: Shireen Reyna
[2021-05-11] MEDS: diphenhydrAMINE 50 MG/ML VIAL 25 MG IV (20:20)
[2021-05-11] MEDS: FAMOTIDINE 20 MG/2 ML VIAL IV (20:20)
[2021-05-11] MEDS: DEXAMETHASONE 10 MG/ML VIAL IV (20:20)
[2021-05-11] MEDS: TRANEXAMIC ACID 1,000 MG in SODIUM CHLORIDE 0.9% 100 ML 200 ML IV (20:20)
[2021-05-11 20:27] LABS: Add Manual Diff / Slide Review NO; Basophils Absolute Auto 100 /uL (0-100); Basophils Percent Auto 1.2 % (0-2); Eosinophils Absolute Auto 200 /uL (0-450); Eosinophils Percent Auto 2.4 % (2-4); Hematocrit 38.9 % (36-46); Hemoglobin 12.7 g/dL (12.0-16.0); Lymphocytes Absolute Auto 2200 /uL (1100-4500); Lymphocytes Percent Auto 32.4 % (25-40); Mean Corpuscular HGB Conc 32.6 % (30-36); Mean Corpuscular Hemoglobin 23.4 PG (26-34); Mean Corpuscular Volume 71.8 fL (80-100); Monocytes Absolute Auto 400 /uL (0-900); Monocytes Percent Auto 5.7 % (3-14); Neutrophils Absolute Auto 3900 /uL (1500-7000); Neutrophils Percent Auto 58.3 % (50-75); Platelet Count 305 X10^3/uL (150-400); Red Blood Cell Count 5.42 X10^6/uL (4.0-5.2); Red Cell Distribution Width 18.2 % (11.6-14.8); White Blood Cell Count 6.7 X10^3/uL (4.5-11.0)
[2021-05-11 20:28] LABS: Alanine Aminotransferase 30 IU/L (<35); Albumin 4.4 g/dL (3.5-5.0); Albumin Globulin Ratio 1.3 (1.0-2.8); Alkaline Phosphatase 99 U/L (38-126); Aspartate Aminotransferase 27 IU/L (14-36); BUN Creatinine Ratio 22.4 (6-22); Bilirubin Total 0.4 mg/dL (0.2-1.3); Blood Urea Nitrogen 26 mg/dL (7-17); Calcium 10.2 mg/dL (8.4-10.2); Carbon Dioxide 24 mmol/L (22-32); Chloride 109 mmol/L (98-107); Estimated Glomerular Filt Rate 45.9 mL/min (>60); Globulin 3.3 g/dL (1.7-4.1); Glucose 82 mg/dL (80-110); HEMOLYSIS < 15 (0-50); Sodium 139 mmol/L (137-145); Total Protein 7.7 g/dL (6.3-8.2)
[2021-05-11 23:10] LABS: COVID19 -Nasal RAPID Negative (Negative)
--- NOTE | 2021-05-12 01:18 | PM.HP.1 ---
History of Present Illness History of Present Illness Date Patient Seen: 05/12/21 Time Patient Seen: 01:18 Date of Onset of Symptoms: 05/11/21 Chief complaint: Lip/hands/feet swelling x7days Narrative: This is a very pleasant 71-year-old female who receives her primary care at the [facility] and she presents to the ER for evaluation of swelling of her lips and face. She had a similar episode in mid March and came to [facility] and was felt that she had angioedema related to benazepril. The benazepril was subsequently stopped and her symptoms went away. Her doctor prescribed amlodipine initially 5 mg prescribed in the ER here and then her doctor increased it to 10 mg. The patient had stopped her indomethacin as well but she saw her provider about a week ago and she said she could go ahead start taking her indomethacin. She took 1 that day and then she took another 1 this morning. She also takes allopurinol on a daily basis for prevention of gout. The patient states that on her lower lip started swelling and then at about 4:00 p.m. today she had sudden onset of her right upper lip and her face swelling. She presented to the ER for evaluation. She was given Decadron and diphenhydramine and famotidine. She was also at her previous visit given TXA but was not given that today. She is not feeling any better but is not feeling any worse. Due to the persistent swelling with worsening she was admitted for further observation. The patient denies any respiratory complaints. On her past ER visit she had swelling of her tongue and this time she does not. She denies any new exposures. Denies any new medications other than the amlodipine. 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 Past medical history: 1. Hypertension 2. Gout 3. Angioedema secondary to presumably benazepril 4. Impaired glucose tolerance Past surgical history: Patient has had a hysterectomy Health Related behavior: Patient does not smoke and never has. She rarely uses alcohol. Patient is sedentary Family history: Negative for asthma or allergies Social history: Patient has lived in [place] since 1986. She is living in [place] with her and her family. Patient is a practicing [employer] and would not want blood transfusions Review of systems: Denies fevers or rashes or headaches. No constitutional symptoms. No recent weight loss or weight gain. Patient was having some swelling of her legs and hands but this is resolved. This she thinks was related to her blood pressure and her blood pressure medication was increased and the symptoms got better. Patient denies cough or difficulty breathing Patient denies chest pain or decreased exercise tolerance, PND orthopnea Patient denies any GI symptoms Patient denies any urinary symptoms Patient History Medical History Hypertension Refusal of blood transfusions as patient is [employer] Surgical History History of hysterectomy Family & Social History Social History: household members family Prior Living Arrangements House Safety & Behavioral: Feels Safe in Current Yes Environment Been Physically Hurt or No Threatened By a Person Suicidal Ideation Description None Suicide Plan Description No Plan Tobacco & Substance use: Smoking Status Never smoker alcohol intake current alcohol intake frequency holiday/special occasion Substance Use Type does not use Meds Home Medications and Allergies Home Medications Medication Instructions Recorded Confirmed Type allopurinol 300 mg tablet 300 mg PO DAILY 02/21/19 04/03/21 History benazepril 20 mg tablet 20 mg PO DAILY 02/21/19 04/03/21 History calcium carbonate 600 mg calcium 600 mg PO BID 02/21/19 04/03/21 History (1,500 mg) tablet (Calcium) indomethacin 25 mg capsule 25 mg PO TID PRN 02/21/19 04/03/19 History meclizine 25 mg chewable tablet 25 mg PO TID PRN #20 tab 02/21/19 04/03/19 Rx hydrochlorothiazide 12.5 mg capsule 12.5 mg PO DAILY 04/03/19 04/03/21 History amlodipine 2.5 mg tablet 2.5 mg PO DAILY #14 tab 04/03/21 Rx Allergies Allergy/AdvReac Type Severity Reaction Status Date / Time EDUARDO Inhibitors Allergy Swelling Verified 05/11/21 20:08 of Lip/Tongue/Throat Review of Systems Review of Systems Narrative: 12 point review of systems is negative other than in HPI Exam Vital Signs (past 8 hours): - 05/11/21 20:02 05/11/21 20:31 05/11/21 20:32 Temperature 97.1 F L Pulse Rate 73 73 74 Respiratory Rate 17 18 Blood Pressure 183/98 H 189/119 H Pulse Oximetry 96 95 94 05/11/21 20:37 05/11/21 21:00 05/11/21 21:30 Temperature Pulse Rate 70 60 61 Respiratory Rate Blood Pressure 199/108 H 200/103 H 196/104 H Pulse Oximetry 96 94 94 05/11/21 22:00 05/11/21 22:30 05/11/21 22:31 Temperature Pulse Rate 64 64 66 Respiratory Rate Blood Pressure 204/96 H 165/93 H Pulse Oximetry 94 94 95 05/11/21 22:45 05/11/21 23:30 Temperature 97.2 F L Pulse Rate 63 81 Respiratory Rate 16 14 Blood Pressure 165/93 H 135/88 Pulse Oximetry 97 96 Oxygen Delivery Method Room Air Oxygen Flow Rate 0 Narrative Exam Narrative: Afebrile vital signs are stable. Blood pressure in the ER was quite high but most recent blood pressure is now normal. Patient is alert and oriented x3 and in no apparent distress. There is no increased work of breathing. Head is normocephalic atraumatic Eyes pupils equal round reactive to light. Sclera intact and nonicteric. Nose and ears unremarkable Oropharynx shows no erythema or exudate. Mucous membranes moist and pink. No evidence of swelling of the pharynx or the tongue. Patient has swelling of her upper lip mostly on the right side but it does cross over the midline. The lower lip is minimally swollen. The right side of the face is swollen but not the left. It is not swollen on the buccal membranes. There is no erythema Neck: Supple without adenopathy or thyromegaly or masses or bruits Chest: Clear to auscultation without wheezes rhonchi or crackles Cor: Regular rate and rhythm without any murmur Abdomen: Positive bowel sounds, soft, nontender, nondistended, obese, no obvious hepatosplenomegaly Extremities: No edema, pulses intact Neurologic exam nonfocal Skin no rashes or erythema Objective Labs Result Diagrams: 05/11/21 20:00 05/11/21 20:00 Labs: Laboratory Results - last 24 hr 05/11/21 05/11/21 05/11/21 20:00 20:00 22:46 WBC 6.7 RBC 5.42 H Hgb 12.7 Hct 38.9 MCV 71.8 L MCH 23.4 L MCHC 32.6 RDW 18.2 H Plt Count 305 Neut % (Auto) 58.3 Lymph % (Auto) 32.4 Ralls % (Auto) 5.7 Eos % (Auto) 2.4 Baso % (Auto) 1.2 Neut # (Auto) 3900 Lymph # (Auto) 2200 Ralls # (Auto) 400 Eos # (Auto) 200 Baso # (Auto) 100 Sodium 139 Potassium 4.0 Chloride 109 H Carbon Dioxide 24 BUN 26 H Creatinine 1.16 H Estimated GFR 45.9 L BUN/Creatinine Ratio 22.4 H Glucose 82 Calcium 10.2 Total Bilirubin 0.4 AST 27 ALT 30 Alkaline Phosphatase 99 Total Protein 7.7 Albumin 4.4 Globulin 3.3 Albumin/Globulin Ratio 1.3 SARS-CoV-2 (PCR) Negative Assessment & Plan Assessment & Plan narrative: 71-year-old female with facial and lip edema not responding to treatment in the emergency department and admitted for further monitoring and treatment. Discussed differential diagnosis with patient. It is possible that this is a late response still related to angioedema from the benazepril. It is possible that it is allergic reaction to something else or possibly to indomethacin. Plan: Patient will be admitted to the hospital We will continue Benadryl 25 mg IV q.4 hours as needed. Will add Claritin 10 mg twice daily She received Decadron 10 mg in the ER. We will reassess in a.m. to see if she needs further steroids. She received Pepcid in the ER as well. Will hold indomethacin. Will continue her new blood pressure medicine, amlodipine. Assessment 2. Hypertension elevated in the ER Plan: Continue amlodipine 10 mg daily as outpatient Assessment 3. Gout without acute issues Plan: Will continue with allopurinol 300 mg daily. Assessment 4. DVT prophylaxis Plan: Lovenox Code status is full code 60 minute spent with patient, discussing the case with the ER doctor and with nursing staff and meeting with patient and formulating a plan. Time Spent With Patient Critical Care time: I spent a total of [] minutes of critical care time on this patient's care today; this time is exclusive of procedural time. Quality VTE Deep Vein Thrombosis/Pulmonary Embolism Present on Admission: No
--- NOTE | 2021-05-12 03:06 | PC.NURSE ---
2230: Pt admitted to 227 from ED. Edema noted to R side of face/lips. No swelling of tongue noted, pt denies SOB or trouble swallowing. Oriented to room and unit. A&Ox3, denies pain. VSS. Bed locked and in low position, call light within reach.
[2021-05-12 07:35] VITALS: BP 140/111; PULSE 93; RESP 17; TEMP 35.9; O2SAT 93
[2021-05-12] MEDS: ENOXAPARIN 40 MG/0.4 ML SYRINGE SUBCUT (08:43)
[2021-05-12] MEDS: LORATADINE 10 MG TABLET PO (08:44)
[2021-05-12] MEDS: AMLODIPINE 5 MG TABLET PO (08:44)
[2021-05-12] MEDS: SODIUM CHLORIDE 0.9% FLUSH 10 ML IV (08:44)
[2021-05-12] MEDS: allopurinoL 300 MG TABLET PO (08:46)
[2021-05-12 11:00] VITALS: BP 143/71; PULSE 80; RESP 18; TEMP 36.2; O2SAT 99
--- NOTE | 2021-05-12 15:05 | P.DS_ITS ---
History of Present Illness History of Present Illness Chief complaint: Lip/hands/feet swelling x7days Narrative: This is a very pleasant 71-year-old female who receives her primary care at the [facility] and she presents to the ER for evaluation of swelling of her lips and face.? She had a similar episode in mid March and came to [facility] and was felt that she had angioedema related to benazepril.? The benazepril was subsequently stopped and her symptoms went away.? Her doctor prescribed amlodipine initially 5 mg prescribed in the ER here and then her doctor increased it to 10 mg.? The patient had stopped her indomethacin as well but she saw her provider about a week ago and she said she could go ahead start taking her indomethacin.? She took 1 that day and then she took another 1 this morning.? She also takes allopurinol on a daily basis for prevention of gout.? The patient states that on her lower lip started swelling and then at about 4:00 p.m. today she had sudden onset of her right upper lip and her face swelling.? She presented to the ER for evaluation.? She was given Decadron and diphenhydramine and famotidine.? She was also at her previous visit given TXA but was not given that today.? She is not feeling any better but is not feeling any worse.? Due to the persistent swelling with worsening she was admitted for further observation. Discharge Providers Provider Date of admission: 05/11/21 23:15 Discharge Date: 05/12/21 Primary care physician: Mercedez Shepherd MD Consults: 05/12/21 01:09 Consult to Tele-associate media planner Routine Comment: Consulting Provider: Shireen Reyna Reason for consultation: Staff Submarine Warfare Officer services Has provider been notified: No Discharge provider: Chet Cortes MD Summary Hospital Course Discharge Diagnosis: 1. Angioedema 2. Hypertension 3. Gout Hospital Course: Ms. Pedersen was admitted with angioedema with sudden swelling in her lips and face. She was treated with benadryl and steroids. She never had tongue swelling or throat swelling. No hypotension or respiratory difficulties. She had just restarted using indomethacin when this occurred. She had a previous episode when she was using nsaids and maribel-inhibitor as well. She is encouraged to avoid using maribel-inhibitor and nsaids. She is given a prescription for an epi-pen. She is referred to an icu staff nurse for further workup. 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 Pedersen came in to the hospital with an allergic reaction. She had swelling of her face and lips. She improved with medications. It was possibly related to indomethacin. She should avoid all similar medications called NSAIDs (these include advil, ibuprofen, excedrin, naproxen, aspirin, indomethacin) because these can commonly cause allergy. She is prescribed an epi-pen. She is encouraged to follow up soon with her primary care doctor. She will be referred to an clinical reimbursement specialist. Discharge orders & Medications Prescriptions: New epinephrine 0.3 mg/0.3 mL auto-injector 0.3 mg IM PRN PRN (Reason: anaphylaxis) Qty: 1 0RF Continued hydrochlorothiazide 12.5 mg Capsule 12.5 mg PO DAILY 0RF amlodipine 2.5 mg tablet 5 mg PO DAILY 0RF allopurinol 300 mg tablet 300 mg PO DAILY 0RF calcium carbonate [Calcium 600] 600 mg calcium (1,500 mg) Tablet 600 mg PO BID 0RF meclizine 25 mg tablet,chewable 25 mg PO TID PRN (Reason: dizziness) Qty: 20 0RF Discontinued indomethacin 25 mg capsule 25 mg PO TID PRN (Reason: pain) 0RF Follow up/Referrals: Mercedez Shepherd MD [Primary Care Provider] - (*Appt on , 05/14/2021 @3:20pm [phone]) Jose Fuentes MD [Non-Staff] - (angioedema x2 episodes, possibly related to nsaids vs maribel-inhibitor) Diet/Activity/Treatments Diet: Regular Visit Report/Discharge Packet Instructions: How to use an Epinephrine Auto-Injector -- Adult Discharge Data Primary Care Provider: Mercedez Shepherd Attending Provider: Shireen Reyna VTE Deep Vein Thrombosis/Pulmonary Embolism Present on Admission: No
[2021-05-13 03:50] LABS: Complement C3 187 mg/dL (82-167)
== END 2021-05-12 13:00 | disposition home or self-care (01) ==
LOC: ED 19:59 → AC 23:15 → ICU 23:17
PROVIDERS: Admitting Provider Family Medicine; Emergency Provider Emergency Medicine; PCP Internal Medicine; Referring Provider Emergency Medicine; Visit Provider Family Medicine
DX: T78.3XXA Angioneurotic edema, initial encounter (principal); I10 Essential (primary) hypertension; M10.9 Gout, unspecified; Z20.822 Contact with and (suspected) exposure to COVID-19
CPT/HCPCS: 36415; 80053; 85025; 86160; 87635; 96365; 96372; 96375; 99284; C9803; G0378; J1100; J1200; J1650

== ENCOUNTER 2021-05-17 04:20 | Emergency (ER) | payer MEDICARE, OTHER, SELFPAY ==
[2021-05-11 23:17] VITALS: BMI 43.9
[2021-05-17 04:20] VITALS: BP 172/94; PULSE 84; RESP 18; TEMP 36.8; O2SAT 96; BMI 43.7
[2021-05-17] MEDS: diphenhydrAMINE 50 MG/ML VIAL 25 MG IV (04:42)
[2021-05-17] MEDS: FAMOTIDINE 20 MG/2 ML VIAL IV (04:43)
[2021-05-17] MEDS: methylPREDNISolone 125 MG/2 ML VIAL IV (04:45)
[2021-05-17] MEDS: EPINEPHrine 1 MG/ML 0.5 MG IM (04:46)
--- NOTE | 2021-05-17 04:54 | ED.ALLEREA ---
HPI - Allergic Reaction General Chief complaint: Allergic Reaction Stated complaint: swollen jaw, allergic reaction Time Seen by Provider: 05/17/21 04:28 Source: patient Mode of arrival: Ambulatory History of Present Illness HPI narrative: The patient is a 71-year-old female history of hypertension presenting with facial and lip swelling. She has actually been seen and evaluated here for angioedema previously. He initially was seen 04/03/2021 at that time she had angioedema secondary to Kevin inhibitor she was given TXA allergic reaction medication improved and was discharged home. She was seen abdomen again 05/11/2021 with significant swelling upper lip and face. Not time she was admitted to the hospital for observation symptoms improved. She was discharged with EpiPen. Today around noon she had increased swelling mostly on left side she has some funny feeling in her jaw and chin but has obvious swelling of the left lip. She says it has progressively gotten worse. She did not use her EpiPen. She has been referred to an hydraulic bull riveter operator but not yet seen 1. She denies any chest pain or shortness of breath. She does have some obvious swelling of her lip as similar to previous episodes however this 1 certainly not as bad. Related Data Home Medications Medication Instructions Recorded Confirmed allopurinol 300 mg tablet 300 mg PO DAILY 02/21/19 05/12/21 calcium carbonate 600 mg calcium 600 mg PO BID 02/21/19 05/12/21 (1,500 mg) tablet (Calcium) hydrochlorothiazide 12.5 mg capsule 12.5 mg PO DAILY 04/03/19 05/12/21 amlodipine 2.5 mg tablet 5 mg PO DAILY 05/12/21 05/12/21 Previous Rx's Medication Instructions Recorded meclizine 25 mg chewable tablet 25 mg PO TID PRN #20 tab 02/21/19 epinephrine 0.3 mg/0.3 mL 0.3 mg (0.3 mL) IM PRN PRN #1 ea 05/12/21 injection, auto-injector prednisone 20 mg tablet 40 mg PO DAILY #10 tab 05/17/21 Allergies Allergy/AdvReac Type Severity Reaction Status Date / Time KEVIN Inhibitors Allergy Swelling Verified 05/11/21 20:08 of Lip/Tongue/Throat Review of Systems Review of Systems Narrative: GENERAL: Denies chills, fatigue, malaise, fever, sweats, travel HEENT: See HPI RESPIRATORY: Denies dyspnea, cough, wheezing, hemoptysis, sputum. CARDIOVASCULAR: Denies chest pain, palpitations, orthopnea, edema GASTROINTESTINAL: Denies nausea, vomiting, abdominal pain, diarrhea, constipation, melena. : Denies dysuria, frequency, incontinence, hematuria, urinary retention, flank pain. MUSCULOSKELETAL: Denies weakness, joint pain, or bony pain SKIN: No rash, no erythema, no pruritus NEUROLOGIC: Denies weakness, dizziness, headache, numbness, change in speech, confusion PSYCHIATRIC: No concerning psychosocial issues. 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 HEENT: Head atraumatic,EOMI, pupils reactive, very mild swelling noted left lip both upper and lower, more on the inside, mild. No significant facial swelling managing own secretions mild decreased facial creases on the left side. No tongue enlargement no stridor CARDIOVASCULAR: Regular rate and rhythm without murmurs, rubs or gallops. RESPIRATORY: Breath sounds equal bilaterally, no wheezes rales or rhonchi. ABDOMEN: Soft, nontender. Normoactive bowel sounds all 4 quadrants. No guarding or rebound. EXTREMITIES: Normal range of motion, no clubbing or edema. Neurovascularly intact NEUROLOGICAL: Alert and oriented x4.Normal gait and speech. SKIN: Warm, dry, no laceration, no petechiae, no rashes or lesions. Course Orders Ordered: Discontinued Medications Diphenhydramine HCl (Diphenhydramine 50 Mg/Ml Vial) 25 mg IV NOW ONE Stop: 05/17/21 04:29 Last Admin: 05/17/21 04:42 Dose: 25 mg Documented by: JEREMY Epinephrine HCl (Epinephrine 1 Mg/Ml) 0.5 mg IM NOW ONE Stop: 05/17/21 04:29 Last Admin: 05/17/21 04:46 Dose: 0.5 mg Documented by: JEREMY Famotidine (Famotidine 20 Mg/2 Ml Vial) 20 mg IV NOW LAVELL Last Admin: 05/17/21 04:43 Dose: 20 mg Documented by: JEREMY Tranexamic Acid 1,000 mg/ (Sodium Chloride) 100 mls @ 200 mls/hr IV NOW ONE Stop: 05/17/21 05:44 Last Infusion: 05/17/21 06:17 Dose: 0 mls/hr Documented by: Admin: 05/17/21 05:36 Dose: 200 mls/hr Documented by: OLIVIA Methylprednisolone (Methylprednisolone 125 Mg/2 Ml Vial) 125 mg IV NOW ONE Stop: 05/17/21 04:29 Last Admin: 05/17/21 04:45 Dose: 125 mg Documented by: JEREMY Vital Signs Vital signs: Vital Signs - 8 hr 05/17/21 04:20 Temperature 98.2 F Pulse Rate 84 Respiratory Rate 18 Blood Pressure 172/94 H Pulse Oximetry 96 MDM - Allergic Reaction Lab Data Result diagrams: 05/17/21 04:39 05/17/21 04:39 Labs: Lab Results 05/17/21 05/17/21 Range/Units 04:39 04:39 WBC 8.0 (4.5-11.0) X10^3/uL RBC 5.24 H (4.0-5.2) X10^6/uL Hgb 12.3 (12.0-16.0) g/dL Hct 37.6 (36-46) % MCV 71.8 L (80-100) fL MCH 23.4 L (26-34) PG MCHC 32.6 (30-36) % RDW 18.2 H (11.6-14.8) % Plt Count 293 (150-400) X10^3/uL Neut % (Auto) 58.7 (50-75) % Lymph % (Auto) 31.3 (25-40) % [place] % (Auto) 7.6 (3-14) % Eos % (Auto) 1.8 L (2-4) % Baso % (Auto) 0.6 (0-2) % Neut # (Auto) 4700 (5636-2296) /uL Lymph # (Auto) 2500 (4977-1496) /uL [place] # (Auto) 600 (0-900) /uL Eos # (Auto) 100 (0-450) /uL Baso # (Auto) 0 (0-100) /uL Sodium 139 (137-145) mmol/L Potassium 3.7 (3.4-5.1) mmol/L Chloride 108 H (98-107) mmol/L Carbon Dioxide 27 (22-32) mmol/L BUN 24 H (7-17) mg/dL Creatinine 1.18 H (0.52-1.04) mg/dL Estimated GFR 45.0 L (>60) mL/min BUN/Creatinine Ratio 20.3 (6-22) Glucose 103 (80-110) mg/dL Calcium 9.5 (8.4-10.2) mg/dL Total Bilirubin 0.4 (0.2-1.3) mg/dL AST 23 (14-36) IU/L ALT 24 (<35) IU/L Alkaline Phosphatase 89 (38-126) U/L Total Creatine Kinase 72 (30-135) U/L CK-MB (CK-2) TNP CK-MB (CK-2) Rel Index TNP Troponin I < 0.012 (0.01-0.034) ng/mL Total Protein 7.3 (6.3-8.2) g/dL Albumin 4.1 (3.5-5.0) g/dL Globulin 3.2 (1.7-4.1) g/dL Albumin/Globulin Ratio 1.3 (1.0-2.8) MDM Narrative Medical decision making narrative: The patient has actually very mild symptoms. She does have some swelling mostly on her left lower lip noted on the inside. Symptoms seem to be much more mild than they have been previously. Initially tried treating it with out epinephrine however after some time she reports absolutely no improvement. His which point she was given epinephrine 30-45 minutes later she reports worsening symptoms. I have examined her I will appreciate any significant swelling is she also continues to not be in any distress. However quite convinced that it is getting worse. So she is given 1 dose of TXA which she immediately reports improvement of symptoms. Possibly some mild improvement of the previous swelling noted. She has taught how to use her epinephrine pen. Strongly recommend that she see an hydraulic bull riveter operator. Discharge Plan Departure Patient Disposition: Home Clinical Impression: Allergic reaction Instructions: Anaphylaxis Activity Restrictions/Additional Instructions: *You have been diagnosed with allergic reaction *What to do: Please see hydraulic bull riveter operator, unclear what you are allergic too. *Continue to take medications as directed Prednisone 40 mg once daily for 5 days Epinephrine if you should feel swelling, if you give yourself epinephrine please go to nearest emergency department *Follow up with your primary care provider in 2-3 days or call [phone] *Return to ER if you should have persistent or recurring lip tongue or facial swelling difficulty breathing, difficulty swallowing or any new, worsening or concerning symptoms Prescriptions: New prednisone 20 mg tablet 40 mg PO DAILY Qty: 10 0RF No Action hydrochlorothiazide 12.5 mg Capsule 12.5 mg PO DAILY 0RF amlodipine 2.5 mg tablet 5 mg PO DAILY 0RF epinephrine 0.3 mg/0.3 mL auto-injector 0.3 mg IM PRN PRN (Reason: anaphylaxis) Qty: 1 0RF allopurinol 300 mg tablet 300 mg PO DAILY 0RF calcium carbonate [Calcium 600] 600 mg calcium (1,500 mg) Tablet 600 mg PO BID 0RF meclizine 25 mg tablet,chewable 25 mg PO TID PRN (Reason: dizziness) Qty: 20 0RF Referrals: Mercedez Shepherd MD [Primary Care Provider] -
[2021-05-17 05:25] LABS: Add Manual Diff / Slide Review NO; Basophils Absolute Auto 0 /uL (0-100); Basophils Percent Auto 0.6 % (0-2); Eosinophils Absolute Auto 100 /uL (0-450); Eosinophils Percent Auto 1.8 % (2-4); Hematocrit 37.6 % (36-46); Hemoglobin 12.3 g/dL (12.0-16.0); Lymphocytes Absolute Auto 2500 /uL (1100-4500); Lymphocytes Percent Auto 31.3 % (25-40); Mean Corpuscular HGB Conc 32.6 % (30-36); Mean Corpuscular Hemoglobin 23.4 PG (26-34); Mean Corpuscular Volume 71.8 fL (80-100); Monocytes Absolute Auto 600 /uL (0-900); Monocytes Percent Auto 7.6 % (3-14); Neutrophils Absolute Auto 4700 /uL (1500-7000); Neutrophils Percent Auto 58.7 % (50-75); Platelet Count 293 X10^3/uL (150-400); Red Blood Cell Count 5.24 X10^6/uL (4.0-5.2); Red Cell Distribution Width 18.2 % (11.6-14.8)
[2021-05-17] MEDS: TRANEXAMIC ACID 1,000 MG in SODIUM CHLORIDE 0.9% 100 ML 200 ML IV (05:36)
[2021-05-17 05:39] LABS: Alanine Aminotransferase 24 IU/L (<35); Albumin 4.1 g/dL (3.5-5.0); Albumin Globulin Ratio 1.3 (1.0-2.8); Alkaline Phosphatase 89 U/L (38-126); Aspartate Aminotransferase 23 IU/L (14-36); BUN Creatinine Ratio 20.3 (6-22); Bilirubin Total 0.4 mg/dL (0.2-1.3); Blood Urea Nitrogen 24 mg/dL (7-17); Calcium 9.5 mg/dL (8.4-10.2); Carbon Dioxide 27 mmol/L (22-32); Chloride 108 mmol/L (98-107); Creatine Kinase 72 U/L (30-135); Globulin 3.2 g/dL (1.7-4.1); Glucose 103 mg/dL (80-110); HEMOLYSIS < 15 (0-50); Potassium 3.7 mmol/L (3.4-5.1); Sodium 139 mmol/L (137-145); Total Protein 7.3 g/dL (6.3-8.2)
[2021-05-17 05:50] LABS: Troponin I < 0.012 ng/mL (0.01-0.034)
[2021-05-17 07:28] VITALS: BP 173/78; PULSE 85; RESP 20; O2SAT 95
== END 2021-05-17 07:29 | disposition home or self-care (01) ==
PROVIDERS: Emergency Provider Emergency Medicine; PCP Internal Medicine
DX: T78.40XA Allergy, unspecified, initial encounter (principal); Z88.8 Allergy status to other drugs, medicaments and biological substances; X58.XXXA Exposure to other specified factors, initial encounter
CPT/HCPCS: 36415; 80053; 82550; 84484; 85025; 96365; 96372; 96375; 99284; J0171; J1200; J2930

== ENCOUNTER → 2021-06-04 15:18 | Outpatient (CLI) | payer MEDICARE, OTHER, SELFPAY ==
[2021-05-11 23:17] VITALS: BMI 43.9
--- NOTE | 2021-06-04 | DI.MG.S_ITS ---
BILATERAL DIGITAL SCREENING MAMMOGRAM 3D/2D WITH CAD: 06/04/2021 CLINICAL: Routine screening. Comparison is made to exams dated: 05/30/2020 mammogram - [facility], 04/25/2019 mammogram, and 03/14/2018 mammogram - [facility]. The tissue of both breasts is heterogeneously dense. This may lower the sensitivity of mammography. Current study was also evaluated with a Computer Aided Detection (CAD) system. No significant masses, calcifications, or other findings are seen in either breast. There has been no significant interval change. IMPRESSION: NEGATIVE There is no mammographic evidence of malignancy. A 1 year screening mammogram is recommended. This exam was interpreted at Station ID: [id number]. NOTE: For mammograms, a report in lay terms will be sent to the patient. Approximately 15% of breast malignancies will not be visualized mammographically. In the management of a palpable breast mass, a negative mammogram must not discourage biopsy of a clinically suspicious lesion. Electronically Signed By: Moses Louie M.D., jr/salvatore:06/05/2021 09:19:56 letter sent: Normal Exam ACR BI-RADS Category 1: Negative [id number]
== END ==
PROVIDERS: PCP Internal Medicine; Referring Provider Internal Medicine; Visit Provider Internal Medicine
DX: Z12.31 Encounter for screening mammogram for malignant neoplasm of breast (principal)
CPT/HCPCS: 77063; 77067

== ENCOUNTER 2021-10-19 12:06 | Emergency (ER) | payer MEDICARE, OTHER, SELFPAY ==
[2021-05-11 23:17] VITALS: BMI 43.9
[2021-10-19 12:29] VITALS: BP 149/83; PULSE 83; RESP 20; TEMP 37; O2SAT 97; BMI 44.8
--- NOTE | 2021-10-19 12:37 | ED_ITS ---
HPI - Abdominal Pain <BRENDA Dickinson - Last Filed: 10/19/21 14:40> General Chief Complaint: Abdominal Pain Stated Complaint: Lowe abd pain Time Seen by Provider: 10/19/21 12:25 Source: patient Mode of arrival: Ambulatory History of Present Illness HPI narrative: 71-year-old female presents to the emergency department with complaints left lower quadrant pain x1. Patient reports the pain worsened last evening and radiates across her abdomen to other side. Patient reports a history kidney stone that had never even though she was given medications and stent was placed. Patient denies any nausea, vomiting, diarrhea or constipation, flank pain. History of total hysterectomy and denies any other abdominal surgeries. Related Data Home Medications Medication Instructions Recorded Confirmed allopurinol 300 mg tablet 300 mg PO DAILY 02/21/19 05/12/21 calcium carbonate 600 mg calcium 600 mg PO BID 02/21/19 05/12/21 (1,500 mg) tablet (Calcium) hydrochlorothiazide 12.5 mg capsule 12.5 mg PO DAILY 04/03/19 05/12/21 amlodipine 2.5 mg tablet 5 mg PO DAILY 05/12/21 05/12/21 Previous Rx's Medication Instructions Recorded meclizine 25 mg chewable tablet 25 mg PO TID PRN dizziness #20 tabs 02/21/19 epinephrine 0.3 mg/0.3 mL 0.3 mg (0.3 mL) IM PRN PRN 05/12/21 injection, auto-injector anaphylaxis #1 ea prednisone 20 mg tablet 40 mg PO DAILY #10 tabs 05/17/21 amoxicillin 875 mg-potassium 1 tab PO BID Diverticulitis 14 10/19/21 clavulanate 125 mg tablet days #28 tabs Allergies Allergy/AdvReac Type Severity Reaction Status Date / Time EDUARDO Inhibitors Allergy Swelling Verified 10/19/21 12:35 of Lip/Tongue/Throat Review of Systems <BRENDA Dickinson - Last Filed: 10/19/21 14:40> Review of Systems Narrative: Narrative: GENERAL: Denies chills, fatigue, fever, sweats. HEENT: Denies sinus pain, ear pain, sore throat, difficulty swallowing, dizziness. RESPIRATORY: Denies dyspnea, cough, wheezing, sputum. CARDIOVASCULAR: Denies chest pain, palpitations, edema. GASTROINTESTINAL: Denies nausea, vomiting, diarrhea, constipation. : Denies frequency, incontinence, hematuria, urinary retention, flank pain. MUSCULOSKELETAL: denies weakness, joint pain, or bony pain. SKIN: Denies rash, skin lesions, or pruritis. NEUROLOGIC: Denies weakness, dizziness, headache, numbness. PSYCHIATRIC: No concerning psychosocial issues. Patient History <BRENDA Dickinson - Last Filed: 10/19/21 14:40> Medical History Hypertension Refusal of blood transfusions as patient is Mandaeism Surgical History History of hysterectomy Social History marital status: household members: family Smoking Status: Never smoker alcohol intake: current Smoking Status: Never smoker alcohol intake frequency: holidays/special occasions only Substance Use Type: does not use Exam <BRENDA Dickinson - Last Filed: 10/19/21 14:40> Narrative Exam Narrative: Narrative Exam Narrative: GENERAL: This is a well-nourished, well-developed, obese patient, in no acute distress HEAD: Atraumatic. Normocephalic. EYES: Pupils equal round and reactive. Extraocular motions intact. No injection or drainage. ENT: Nose without bleeding, purulent drainage. Airway patent. NECK: Trachea midline. No JVD or lymphadenopathy. Supple and nontender. CARDIOVASCULAR: Regular rate and rhythm, peripheral pulses intact, cap refill <2 sec. RESPIRATORY: Breath sounds equal and clear bilaterally. No wheezes, rales, or rhonchi. No cough. No increased respiratory effort. No accessory muscle use. GASTROINTESTINAL: Abdomen soft, mild left lower quadrant tenderness, nondistended without guarding or rebound. No suprapubic pain. No hepato-splen omegaly, or palpable masses. EXTREMITIES: Normal range of motion, no clubbing or edema. Neurovascularly intact. NEURO: A&O x 3. SKIN: Warm, dry, no rashes or lesions noted. Initial Vital Signs Initial Vital Signs: Vital Signs Temperature 98.6 F 10/19/21 12:29 Pulse Rate 83 10/19/21 12:29 Respiratory Rate 20 10/19/21 12:29 Blood Pressure 149/83 H 10/19/21 12:29 Pulse Oximetry 97 10/19/21 12:29 Oxygen Delivery Method 10/19/21 12:29 Verified <Usama Brooks DO - Last Filed: 10/19/21 14:53> Initial Vital Signs Initial Vital Signs: Vital Signs Temperature 98.6 F 10/19/21 12:29 Pulse Rate 83 10/19/21 12:29 Respiratory Rate 20 10/19/21 12:29 Blood Pressure 149/83 H 10/19/21 12:29 Pulse Oximetry 97 10/19/21 12:29 Oxygen Delivery Method 10/19/21 12:29 Course <BRENDA Dickinson - Last Filed: 10/19/21 14:40> Orders Ordered: ED Orders 10/19/21 12:38 CT abdomen pelvis wo con Stat 10/19/21 12:48 Complete Blood Count AUTO DIFF Stat Comprehensive Metabolic Panel Stat Lipase Stat Discontinued Medications Ketorolac Tromethamine (Ketorolac 30 Mg/Ml Vial) 30 mg IV NOW ONE Stop: 10/19/21 13:21 Last Admin: 10/19/21 13:35 Dose: 30 mg Documented By: AT Vital Signs Vital signs: Vital Signs - 8 hr 10/19/21 12:29 10/19/21 13:07 10/19/21 13:30 Temperature 98.6 F Pulse Rate 83 81 77 Respiratory Rate 20 Blood Pressure 149/83 H Pulse Oximetry 97 95 96 Oxygen Delivery Method Room Air 10/19/21 13:38 10/19/21 13:38 10/19/21 14:00 Temperature Pulse Rate 75 69 Respiratory Rate Blood Pressure 150/90 H Pulse Oximetry 95 96 Oxygen Delivery Method 10/19/21 14:30 Temperature Pulse Rate 70 Respiratory Rate Blood Pressure Pulse Oximetry 96 Oxygen Delivery Method Room Air <Usama Brooks DO - Last Filed: 10/19/21 14:53> Orders Ordered: ED Orders 10/19/21 12:38 CT abdomen pelvis wo con Stat 10/19/21 12:48 Complete Blood Count AUTO DIFF Stat Comprehensive Metabolic Panel Stat Lipase Stat Discontinued Medications Ketorolac Tromethamine (Ketorolac 30 Mg/Ml Vial) 30 mg IV NOW ONE Stop: 10/19/21 13:21 Last Admin: 10/19/21 13:35 Dose: 30 mg Documented By: AT Vital Signs Vital signs: Vital Signs - 8 hr 10/19/21 12:29 10/19/21 13:07 10/19/21 13:30 Temperature 98.6 F Pulse Rate 83 81 77 Respiratory Rate 20 Blood Pressure 149/83 H Pulse Oximetry 97 95 96 Oxygen Delivery Method Room Air 10/19/21 13:38 10/19/21 13:38 10/19/21 14:00 Temperature Pulse Rate 75 69 Respiratory Rate Blood Pressure 150/90 H Pulse Oximetry 95 96 Oxygen Delivery Method 10/19/21 14:30 Temperature Pulse Rate 70 Respiratory Rate Blood Pressure Pulse Oximetry 96 Oxygen Delivery Method Room Air MDM - Abdominal Pain <BRENDA Dickinson - Last Filed: 10/19/21 14:40> Differential Diagnosis Differential diagnosis: Likely abdominal pain and calculus of kidney Lab Data Result diagrams: 10/19/21 12:48 10/19/21 12:48 Labs: Lab Results 10/19/21 10/19/21 Range/Units 12:48 12:48 WBC 9.0 (4.5-11.0) X10^3/uL RBC 5.44 H (4.0-5.2) X10^6/uL Hgb 13.0 (12.0-16.0) g/dL Hct 38.7 (36-46) % MCV 71.1 L (80-100) fL MCH 23.9 L (26-34) PG MCHC 33.6 (30-36) % RDW 17.5 H (11.6-14.8) % Plt Count 283 (150-400) X10^3/uL Neut % (Auto) 65.4 (50-75) % Lymph % (Auto) 26.1 (25-40) % [place] % (Auto) 6.4 (3-14) % Eos % (Auto) 1.0 L (2-4) % Baso % (Auto) 1.1 (0-2) % Neut # (Auto) 5900 (3472-0862) /uL Lymph # (Auto) 2300 (5523-2937) /uL [place] # (Auto) 600 (0-900) /uL Eos # (Auto) 100 (0-450) /uL Baso # (Auto) 100 (0-100) /uL Sodium 141 (137-145) mmol/L Potassium 4.2 (3.4-5.1) mmol/L Chloride 109 H (98-107) mmol/L Carbon Dioxide 23 (22-32) mmol/L BUN 23 H (7-17) mg/dL Creatinine 1.14 H (0.52-1.04) mg/dL Estimated GFR 51 L (>60) mL/min BUN/Creatinine Ratio 20.2 (6-22) Glucose 111 H (80-110) mg/dL Calcium 9.6 (8.4-10.2) mg/dL Total Bilirubin 0.5 (0.2-1.3) mg/dL AST 22 (14-36) IU/L ALT 21 (<35) IU/L Alkaline Phosphatase 85 (38-126) U/L Total Protein 7.8 (6.3-8.2) g/dL Albumin 4.5 (3.5-5.0) g/dL Globulin 3.3 (1.7-4.1) g/dL Albumin/Globulin Ratio 1.4 (1.0-2.8) Lipase 85 (23-300) U/L Point of care testing: Urine Dip Bedside Urine Glucose Negative Bedside Urine Bilirubin - Negative Bedside Urine Ketone - Negative Urine Specific [place] 1.020 Bedside Urine Occult Blood - Negative Bedside Urine pH 6.0 Bedside Urine Protein - Negative Bedside Urine Urobilinogen - Negative Bedside Urine Nitrite - Negative Bedside Urine Leukocytes - Negative Esterase Imaging Data CT scan - abdomen/pelvis: Radiologist's Impression: [place] [id number] CT Scan Report Signed Patient: Judi Pedersen MR#: [id number] : 1950 Acct:[id number] Age/Sex: 71 / F Date of Service: 10/19/21 Loc: Accession Number: [id number] ?? Procedure: CT abdomen pelvis wo con Ordering Provider: Usama Erickson PROCEDURE:? CT ABDOMEN PELVIS WO CON ? INDICATIONS:? LLQ pain ? TECHNIQUE:? Noncontrast 5 mm thick sections acquired from the diaphragms to the symphysis.? 5 mm coronal and sagittal reformats were then performed.? For radiation dose reduction, the following was used:? automated exposure control, adjustment of mA and/or kV according to patient size.? ? COMPARISON:? None. ? FINDINGS: Image quality:? Excellent.? ? Lung bases:? Lung bases are clear.? Heart size is normal. ? Solid organs:? Liver: The liver has no mass or intrahepatic biliary ductal dilatation.? The liver demonstrates low density consistent with hepatic steatosis.? Biliary: The gallbladder has no gallstones, pericholecystic fluid, gallbladder wall thickening, or surrounding inflammatory change. Pancreas: The pancreas has no mass or ductal dilatation. There is no surrounding inflammation. Spleen: Normal size. There are no masses. Adrenals: No hypertrophy or nodules. Kidneys: No obstructive calculus or hydronephrosis.? No solid mass. No cystic mass. ? Peritoneum and bowel:? Small hiatal hernia.? The distal esophagus and stomach are otherwise normal.? The small bowel has a normal caliber and appearance. The terminal ileum is normal. The large bowel has diverticulosis with an area of inflammation in the left proximal sigmoid colon consistent with acute diverticulitis.? There is no evidence of perforation or abscess..? The appendix is normal. No free fluid or air.? ? Nodes and vessels:? No retroperitoneal or mesenteric adenopathy by size criteria.? Aorta and inferior vena cava are normal in size.? ? Miscellaneous:? No abdominal wall mass or hernia. ? PELVIS:? Genitourinary:? The bladder has no wall thickening or mass. No bladder calcifications. ? Bones:? No suspicious bony lesions.? No vertebral body compression fractures.? ? IMPRESSION:? Acute diverticulitis of the sigmoid colon without evidence of perforation or abscess. ? ? Dictated by: Tom Rodriguez M.D. on 10/19/2021 at 12:47 ? ? Approved by: Tom Rodriguez M.D. on 10/19/2021 at 12:50 ? [facility] Narrative Medical decision making narrative: 71-year-old female presenting with left lower quadrant abdominal pain. Urine dip was not consistent with a UTI and CBC was normal. CT scan reveals acute diverticulitis. Reviewed inpatient versus outpatient criteria on up-to-date and discussed case with Dr. Brooks. Patient will be sent home with amoxicillin with clavulanic b.i.d. times 14 days. Instructed patient to follow up with her family doctor on Wednesday. Return precautions discussed. Discussed plan of care with patient and daughter, who were agreeable with course of action. <Usama Brooks, DO - Last Filed: 10/19/21 14:53> Lab Data Labs: Lab Results 07/03/22 07/03/22 Range/Units 12:48 12:48 WBC 9.0 (4.5-11.0) X10^3/uL RBC 5.44 H (4.0-5.2) X10^6/uL Hgb 13.0 (12.0-16.0) g/dL Hct 38.7 (36-46) % MCV 71.1 L (80-100) fL MCH 23.9 L (26-34) PG MCHC 33.6 (30-36) % RDW 17.5 H (11.6-14.8) % Plt Count 283 (150-400) X10^3/uL Neut % (Auto) 65.4 (50-75) % Lymph % (Auto) 26.1 (25-40) % [place] % (Auto) 6.4 (3-14) % Eos % (Auto) 1.0 L (2-4) % Baso % (Auto) 1.1 (0-2) % Neut # (Auto) 5900 (7803-5634) /uL Lymph # (Auto) 2300 (1823-1037) /uL [place] # (Auto) 600 (0-900) /uL Eos # (Auto) 100 (0-450) /uL Baso # (Auto) 100 (0-100) /uL Sodium 141 (137-145) mmol/L Potassium 4.2 (3.4-5.1) mmol/L Chloride 109 H (98-107) mmol/L Carbon Dioxide 23 (22-32) mmol/L BUN 23 H (7-17) mg/dL Creatinine 1.14 H (0.52-1.04) mg/dL Estimated GFR 51 L (>60) mL/min BUN/Creatinine Ratio 20.2 (6-22) Glucose 111 H (80-110) mg/dL Calcium 9.6 (8.4-10.2) mg/dL Total Bilirubin 0.5 (0.2-1.3) mg/dL AST 22 (14-36) IU/L ALT 21 (<35) IU/L Alkaline Phosphatase 85 (38-126) U/L Total Protein 7.8 (6.3-8.2) g/dL Albumin 4.5 (3.5-5.0) g/dL Globulin 3.3 (1.7-4.1) g/dL Albumin/Globulin Ratio 1.4 (1.0-2.8) Lipase 85 (23-300) U/L Point of care testing: Urine Dip Bedside Urine Glucose Negative Bedside Urine Bilirubin - Negative Bedside Urine Ketone - Negative Urine Specific [place] 1.020 Bedside Urine Occult Blood - Negative Bedside Urine pH 6.0 Bedside Urine Protein - Negative Bedside Urine Urobilinogen - Negative Bedside Urine Nitrite - Negative Bedside Urine Leukocytes - Negative Esterase Discharge Plan Departure Patient Disposition: Home Clinical Impression: Diverticulitis Instructions: DI for Diverticulitis Activity Restrictions/Additional Instructions: *You have been diagnosed with diverticulitis. I will prescribe an antibiotic that you will take twice a day for 14 days. You should start feeling better once the antibiotics start to work. *What to do: *Please continue to take your regular medications as directed. [ x] New medication prescriptions sent to your pharmacy: [[facility] [place]] [ ] New medication written as a paper prescription [ ] No new medications given *Please follow up with your primary care provider in 2-3 days, call for an appointment. Let them know you were seen in the Emergency Department and that we ask that you be seen in follow up. We will electronically transmit a record of today's note if your PCP is in our system *If you do not have a primary care provider please contact the [facility] Resource line at [phone]. They will ask some questions about your medical history and help get you set up with a doctor in the community. ? Return to ER if you should have any new, worsening or concerning symptoms, such as worsening pain, severe headache, confusion, chest pain, difficulty breathing, fever greater than 101 F, shaking chills, persistent vomiting to the point that you cannot drink fluids, or other new or worsening symptoms. Prescriptions: New amoxicillin-pot clavulanate 875-125 mg tablet 1 tab PO BID 14 Days Qty: 28 0RF No Action hydrochlorothiazide 12.5 mg Capsule 12.5 mg PO DAILY amlodipine 2.5 mg tablet 5 mg PO DAILY epinephrine 0.3 mg/0.3 mL auto-injector 0.3 mg IM PRN PRN (Reason: anaphylaxis) Qty: 1 0RF prednisone 20 mg tablet 40 mg PO DAILY Qty: 10 0RF allopurinol 300 mg tablet 300 mg PO DAILY calcium carbonate [Calcium 600] 600 mg calcium (1,500 mg) Tablet 600 mg PO BID meclizine 25 mg tablet,chewable 25 mg PO TID PRN (Reason: dizziness) Qty: 20 0RF Referrals: Mercedez Shepherd MD [Primary Care Provider] - Visit Report Forms: Patient Portal/API <Usama Brooks DO - Last Filed: 10/19/21 14:53> [facility] Dr Brooks Co-Sign Statement: I was available for consultation during this patient's emergency department visit. This chart is signed by myself for administrative purposes only. I did not have direct contact with this patient during this visit. They were seen independently by the APC.
--- NOTE | 2021-10-19 12:38 | DI.CT.S_ITS ---
PROCEDURE: CT ABDOMEN PELVIS WO CON INDICATIONS: LLQ pain TECHNIQUE: Noncontrast 5 mm thick sections acquired from the diaphragms to the symphysis. 5 mm coronal and sagittal reformats were then performed. For radiation dose reduction, the following was used: automated exposure control, adjustment of mA and/or kV according to patient size. COMPARISON: None. FINDINGS: Image quality: Excellent. Lung bases: Lung bases are clear. Heart size is normal. Solid organs: Liver: The liver has no mass or intrahepatic biliary ductal dilatation. The liver demonstrates low density consistent with hepatic steatosis. Biliary: The gallbladder has no gallstones, pericholecystic fluid, gallbladder wall thickening, or surrounding inflammatory change. Pancreas: The pancreas has no mass or ductal dilatation. There is no surrounding inflammation. Spleen: Normal size. There are no masses. Adrenals: No hypertrophy or nodules. Kidneys: No obstructive calculus or hydronephrosis. No solid mass. No cystic mass. Peritoneum and bowel: Small hiatal hernia. The distal esophagus and stomach are otherwise normal. The small bowel has a normal caliber and appearance. The terminal ileum is normal. The large bowel has diverticulosis with an area of inflammation in the left proximal sigmoid colon consistent with acute diverticulitis. There is no evidence of perforation or abscess.. The appendix is normal. No free fluid or air. Nodes and vessels: No retroperitoneal or mesenteric adenopathy by size criteria. Aorta and inferior vena cava are normal in size. Miscellaneous: No abdominal wall mass or hernia. PELVIS: Genitourinary: The bladder has no wall thickening or mass. No bladder calcifications. Bones: No suspicious bony lesions. No vertebral body compression fractures. IMPRESSION: Acute diverticulitis of the sigmoid colon without evidence of perforation or abscess. Dictated by: Tom Rodriguez M.D. on 10/19/2021 at 12:47 Approved by: Tom Rodriguez M.D. on 10/19/2021 at 12:50
[2021-10-19 12:59] LABS: Add Manual Diff / Slide Review NO; Basophils Absolute Auto 100 /uL (0-100); Basophils Percent Auto 1.1 % (0-2); Eosinophils Absolute Auto 100 /uL (0-450); Hematocrit 38.7 % (36-46); Lymphocytes Absolute Auto 2300 /uL (1100-4500); Lymphocytes Percent Auto 26.1 % (25-40); Mean Corpuscular HGB Conc 33.6 % (30-36); Mean Corpuscular Hemoglobin 23.9 PG (26-34); Mean Corpuscular Volume 71.1 fL (80-100); Monocytes Absolute Auto 600 /uL (0-900); Monocytes Percent Auto 6.4 % (3-14); Neutrophils Absolute Auto 5900 /uL (1500-7000); Neutrophils Percent Auto 65.4 % (50-75); Platelet Count 283 X10^3/uL (150-400); Red Blood Cell Count 5.44 X10^6/uL (4.0-5.2); Red Cell Distribution Width 17.5 % (11.6-14.8)
[2021-10-19 13:07] VITALS: PULSE 81; O2SAT 95
[2021-10-19 13:10] LABS: Alanine Aminotransferase 21 IU/L (<35); Albumin 4.5 g/dL (3.5-5.0); Albumin Globulin Ratio 1.4 (1.0-2.8); Alkaline Phosphatase 85 U/L (38-126); Aspartate Aminotransferase 22 IU/L (14-36); BUN Creatinine Ratio 20.2 (6-22); Bilirubin Total 0.5 mg/dL (0.2-1.3); Blood Urea Nitrogen 23 mg/dL (7-17); Calcium 9.6 mg/dL (8.4-10.2); Carbon Dioxide 23 mmol/L (22-32); Chloride 109 mmol/L (98-107); Estimated Glomerular Filt Rate 51 mL/min (>60); Globulin 3.3 g/dL (1.7-4.1); Glucose 111 mg/dL (80-110); HEMOLYSIS 18 (0-50); Lipase 85 U/L (23-300); Potassium 4.2 mmol/L (3.4-5.1); Sodium 141 mmol/L (137-145); Total Protein 7.8 g/dL (6.3-8.2)
[2021-10-19 13:30] VITALS: PULSE 77; O2SAT 96
[2021-10-19] MEDS: KETOROLAC 30 MG/ML VIAL IV (13:35)
[2021-10-19 13:38] VITALS: BP 150/90; PULSE 75; O2SAT 95
[2021-10-19 14:00] VITALS: PULSE 69; O2SAT 96
[2021-10-19 14:30] VITALS: PULSE 70; O2SAT 96
== END 2021-10-19 14:44 | disposition home or self-care (01) ==
PROVIDERS: Emergency Provider Registered Nurse; PCP Internal Medicine
DX: K57.92 Diverticulitis of intestine, part unspecified, without perforation or abscess without bleeding (principal)
CPT/HCPCS: 36415; 74176; 80053; 81003; 83690; 85025; 96374; 99284; J1885

== ENCOUNTER → 2022-06-24 13:44 | Outpatient (CLI) | payer MEDICARE, OTHER, SELFPAY ==
[2021-05-11 23:17] VITALS: BMI 43.9
--- NOTE | 2022-06-24 | DI.MG.S_ITS ---
BILATERAL DIGITAL SCREENING MAMMOGRAM 3D/2D WITH CAD: 06/24/2022 CLINICAL: Routine screening. Comparison is made to exams dated: 06/04/2021 mammogram, 05/30/2020 mammogram - [facility], and 04/25/2019 mammogram - [facility]. Both breasts are heterogeneously dense, which may obscure small masses (category c / 51-75% glandular tissue). Current study was also evaluated with a Computer Aided Detection (CAD) system. No significant masses, calcifications, or other findings are seen in either breast. There has been no significant interval change. IMPRESSION: NEGATIVE There is no mammographic evidence of malignancy. A 1 year screening mammogram is recommended. Based on the Tyrer Cuzick model (a risk assessment model) the patient's lifetime risk is 6.5% and her 10 year risk is 5.3%. According to the ACR, ACS, and NCCN guidelines, an annual breast MRI exam along with mammogram is recommended if the patient's lifetime risk is 20% or greater. This exam was interpreted at Station ID: [id number]. NOTE: For mammograms, a report in lay terms will be sent to the patient. Approximately 15% of breast malignancies will not be visualized mammographically. In the management of a palpable breast mass, a negative mammogram must not discourage biopsy of a clinically suspicious lesion. Electronically Signed By: Jose ga/salvatore:06/30/2022 09:46:23 letter sent: Normal Exam ACR BI-RADS Category 1: Negative 3341F
== END ==
DX: Z12.31 Encounter for screening mammogram for malignant neoplasm of breast (principal)
CPT/HCPCS: 77063; 77067

== ENCOUNTER → 2023-07-26 15:08 | Outpatient (CLI) | payer MEDICARE, OTHER, SELFPAY ==
[2021-05-11 23:17] VITALS: BMI 43.9
--- NOTE | 2023-07-26 15:12 | DI.MG.S_ITS ---
BILATERAL DIGITAL SCREENING MAMMOGRAM 3D/2D WITH CAD: 07/26/2023 CLINICAL: Routine screening. Comparison is made to exams dated: 06/24/2022 mammogram, 06/04/2021 mammogram, and 05/30/2020 mammogram - [facility]. There are scattered areas of fibroglandular density in both breasts (category b / 25%-50% glandular tissue). Current study was also evaluated with a Computer Aided Detection (CAD) system. There are benign calcifications in both breasts. There also are benign vascular calcifications in both breasts. No significant masses, calcifications, or other findings are seen in either breast. There has been no significant interval change. IMPRESSION: BENIGN There is no mammographic evidence of malignancy. A 1 year screening mammogram is recommended. Based on the Tyrer Cuzick model (a risk assessment model) the patient's lifetime risk is 4.0% and her 10 year risk is 3.6%. According to the ACR, ACS, and NCCN guidelines, an annual breast MRI exam along with mammogram is recommended if the patient's lifetime risk is 20% or greater. This exam was interpreted at Station ID: [id number]. NOTE: For mammograms, a report in lay terms will be sent to the patient. Approximately 15% of breast malignancies will not be visualized mammographically. In the management of a palpable breast mass, a negative mammogram must not discourage biopsy of a clinically suspicious lesion. Electronically Signed By: Dolly rincon/salvatore:07/27/2023 12:21:27 letter sent: Normal Exam ACR BI-RADS Category 2: Benign Finding(s) 3342F
== END ==
PROVIDERS: Visit Provider Internal Medicine
DX: Z12.31 Encounter for screening mammogram for malignant neoplasm of breast (principal); R92.323 Mammographic fibroglandular density, bilateral breasts
CPT/HCPCS: 77063; 77067

== ENCOUNTER 2023-11-02 14:14 | Inpatient (IN) | payer MEDICARE, OTHER, SELFPAY ==
[2021-05-11 23:17] VITALS: BMI 43.9
[2023-11-02] VITALS (19 sets, daily range): BP systolic 104–180; BP diastolic 72–106; PULSE 89–128; RESP 16–35; TEMP 36.6–38.7; O2SAT 92–97; BMI 45.0
--- NOTE | 2023-11-02 15:29 | ED.FEMALEGU ---
HPI - Female Genitourinary <Margot Blackman PA-C - Last Filed: 11/02/23 18:48> General Chief complaint: Urogenital-Female Stated complaint: thinks has UTI Time Seen by Provider: 11/02/23 15:26 Source: patient Mode of arrival: Family Vehicle History of Present Illness HPI Narrative: 73-year-old female with past medical history hypertension, angioedema, kidney stones presents to the ED with 4 days of dysuria. Patient states that her symptoms started 4 days ago with dysuria, urinary frequency and urinary urgency. Patient also complains of some nausea. Patient denies chest pain, shortness of breath, cough, vomiting, lightheadedness, dizziness, syncope. Patient does complain of left-sided flank pain, but she is not sure if this is due to musculoskeletal etiology for which she goes to the chiropractor for. Patient denies frequent UTIs. Patient does have a prior history of kidney stones. Related Data Home Medications Medication Instructions Recorded Confirmed allopurinol 300 mg tablet 300 mg PO DAILY 02/21/19 05/12/21 calcium carbonate (Calcium 600) 600 mg PO BID 02/21/19 05/12/21 hydrochlorothiazide 12.5 mg capsule 12.5 mg PO DAILY 04/03/19 05/12/21 amlodipine 2.5 mg tablet 5 mg PO DAILY 05/12/21 05/12/21 Previous Rx's Medication Instructions Recorded meclizine 25 mg chewable tablet 25 mg PO TID PRN dizziness #20 tabs 02/21/19 epinephrine 0.3 mg/0.3 mL 0.3 mg (0.3 mL) IM PRN PRN 05/12/21 injection, auto-injector anaphylaxis #1 ea prednisone 20 mg tablet 40 mg (2 x 20 mg) PO DAILY #10 tabs 05/17/21 Allergies Allergy/AdvReac Type Severity Reaction Status Date / Time EDUARDO Inhibitors Allergy Swelling Verified 10/19/21 12:35 of Lip/Tongue/Throat Review of Systems <Margot Blackman PA-C - Last Filed: 11/02/23 18:48> Constitutional Constitutional: Reports chills, Denies fatigue, Reports fever(s), Denies frequent falls, Denies lethargy and Denies weakness Eyes Eyes: Denies change in vision, Denies eye discharge, Denies irritation and Denies loss of vision ENT Ears, Nose, Mouth, and Throat: Denies change in voice, Denies dizziness, Denies neck pain, Denies sore throat and Denies throat swelling Cardiovascular Cardiovascular: Denies chest pain, Denies irregular heart rhythm, Denies lightheadedness, Denies palpitations, Denies dyspnea, Denies dyspnea on exertion and Denies orthopnea Respiratory Respiratory: Denies cough, Denies dyspnea, Denies dyspnea on exertion and Denies wheezing Gastrointestinal Gastrointestinal: Denies abdominal pain, Denies change in bowel habits, Denies diarrhea, Reports nausea and Denies vomiting Genitourinary Genitourinary: Reports dysuria and Reports urinary urgency Musculoskeletal Musculoskeletal: Denies neck pain and Denies numbness Integumentary/Breasts Skin/Breast: Denies pruritus, Denies erythema, Denies rash and Denies wounds Neurologic Neurologic: Denies behavioral changes, Denies confusion, Denies dizziness, Denies frequent falls, Denies loss of vision, Denies numbness and Denies weakness Psychiatric Psychiatric: Denies anxiety, Denies behavioral changes, Denies confusion, Denies depression, Denies homicidal ideation and Denies suicidal ideation Endocrine Endocrine: Denies fatigue, Denies flushing and Denies palpitations Hematologic/Lymphatic Hematologic/Lymphatic: Denies easy bruising Allergic/Immunologic Allergic/Immunologic: Denies urticaria, Denies throat swelling and Denies wheezing Patient History <Margot Blackman PA-C - Last Filed: 11/02/23 18:48> Medical History (Updated 11/02/23 @ 23:36 by Giovana Javier MD) Refusal of blood transfusions as patient is Buddhist Hypertension Surgical History History of hysterectomy alcohol intake frequency: holidays/special occasions only Substance Use Type: does not use Exam <Margot Blackman PA-C - Last Filed: 11/02/23 18:48> Narrative Exam Narrative: Const General:?cooperative, healthy appearing and comfortable [facility] Head:?normal to inspection Ears:?hearing grossly normal bilaterally Nose:?external nose normal Face and sinus:?normal facial exam and sinuses nontender Mouth:?oral mucosae normal Throat:?posterior oropharynx normal Eyes General:?appearance normal, both eyes and all related structures Neck Neck:?normal visual inspection and no lymphadenopathy noted Resp Effort & Inspection:?normal respiratory effort Auscultation:?clear to auscultation bilaterally Cardio Rate:?regular rate Rhythm:?regular rhythm GI No CVA TTP. abdomen is soft, nondistended, nontender to palpation. Neuro General:?patient alert, patient awake and patient oriented x3 Initial Vital Signs Initial Vital Signs: Vital Signs Temperature 97.9 F 11/02/23 14:27 Pulse Rate 89 11/02/23 14:27 Respiratory Rate 16 11/02/23 14:27 Blood Pressure 167/91 H 11/02/23 14:27 Pulse Oximetry 96 11/02/23 14:27 Oxygen Delivery Method Room Air 11/02/23 14:27 <Giovana Javier MD - Last Filed: 11/02/23 23:36> Initial Vital Signs Initial Vital Signs: Vital Signs Temperature 97.9 F 11/02/23 14:27 Pulse Rate 89 11/02/23 14:27 Respiratory Rate 16 11/02/23 14:27 Blood Pressure 167/91 H 11/02/23 14:27 Pulse Oximetry 96 11/02/23 14:27 Oxygen Delivery Method Room Air 11/02/23 14:27 Course <Margot Blackman PA-C - Last Filed: 11/02/23 18:48> Orders Ordered: ED Orders 11/02/23 14:38 Urine Culture Stat Urine Microscopic Stat 11/02/23 15:42 CT abdomen pelvis w con Stat 11/02/23 16:30 CBC Auto Diff [Complete Blood Count AUTO DIFF] Stat CMP [Comprehensive Metabolic Panel] Stat Lipase Stat 11/02/23 18:00 XR chest 1V Stat Lactate (Lactic Acid) Stat 11/02/23 18:12 EKG-12 Lead Stat 11/02/23 19:25 Blood Culture Stat Acetaminophen (Acetaminophen 325 Mg Tablet) 650 mg PO Q6H PRN PRN Reason: Fever/Mild Pain (1-3) Calcium Carbonate (Calcium Carbonate 500 Mg Tab) 1,000 mg PO Q4HR PRN PRN Reason: Dyspepsia Heparin Sodium (Porcine) (Heparin 5,000 Unit/Ml Vial) 5,000 unit SUBCUT BID [facility] Last Admin: 11/02/23 20:18 Dose: 5,000 unit Documented By: FM Sodium Chloride (Normal Saline 0.9%) 1,000 mls @ 100 mls/hr IV CONT LAVELL Last Admin: 11/02/23 20:15 Dose: 100 mls/hr Documented By: DIANE Naloxone HCl (Naloxone 0.4 Mg/Ml Vial) 0.2 mg IV Q2MIN PRN PRN Reason: Opiate Reversal Ondansetron HCl (Ondansetron 4 Mg/2 Ml Inj) 4 mg IV Q8HR PRN PRN Reason: Nausea And Vomiting Ondansetron HCl (Ondansetron 4 Mg Odt) 4 mg PO Q8HR PRN PRN Reason: Nausea And Vomiting Discontinued Medications Acetaminophen (Acetaminophen 325 Mg Tablet) 975 mg PO NOW ONE Stop: 11/02/23 15:43 Last Admin: 11/02/23 15:55 Dose: 975 mg Documented By: TIBURCIO Sodium Chloride (Normal Saline 0.9%) 1,000 mls @ 1,000 mls/hr IV BOLUS ONE Stop: 11/02/23 17:45 Last Infusion: 11/02/23 18:05 Dose: Infused Documented By: Admin: 11/02/23 16:47 Dose: 1,000 mls/hr Documented By: JOYCE Ceftriaxone Sodium 1,000 mg/ (Sodium Chloride) 100 mls @ 200 mls/hr IV NOW ONE Stop: 11/02/23 16:50 Last Infusion: 11/02/23 17:37 Dose: Infused Documented By: Admin: 11/02/23 16:56 Dose: 200 mls/hr Documented By: JOYCE Sodium Chloride (Normal Saline 0.9%) 1,000 mls @ 1,000 mls/hr IV BOLUS ONE Stop: 11/02/23 19:18 Last Infusion: 11/02/23 20:27 Dose: Infused Documented By: Infusion: 11/02/23 18:49 Dose: 1,000 mls/hr Documented By: Infusion: 11/02/23 18:49 Dose: 0 mls/hr Documented By: Admin: 11/02/23 18:47 Dose: 1,000 mls/hr Documented By: JOYCE Vital Signs Vital signs: Vital Signs - 8 hr 11/02/23 15:35 11/02/23 15:55 11/02/23 16:20 Temperature 101.6 F H 101.6 F H Pulse Rate Respiratory Rate Blood Pressure 168/83 H Pulse Oximetry Oxygen Delivery Method 11/02/23 16:20 07/16/24 16:30 11/02/23 16:30 Temperature Pulse Rate 118 H 115 H Respiratory Rate Blood Pressure 156/78 H Pulse Oximetry 95 96 Oxygen Delivery Method 11/02/23 16:32 11/02/23 17:00 11/02/23 17:01 Temperature 101.7 F H Pulse Rate 107 H Respiratory Rate Blood Pressure 135/81 Pulse Oximetry 95 Oxygen Delivery Method 11/02/23 17:01 11/02/23 17:30 11/02/23 17:30 Temperature Pulse Rate 107 H 104 H Respiratory Rate Blood Pressure 143/72 H Pulse Oximetry 94 94 Oxygen Delivery Method 11/02/23 17:47 11/02/23 18:06 11/02/23 18:09 Temperature 99.5 F 98.9 F Pulse Rate Respiratory Rate Blood Pressure Pulse Oximetry 92 Oxygen Delivery Method 11/02/23 18:10 11/02/23 18:10 11/02/23 18:30 Temperature Pulse Rate 128 H 122 H Respiratory Rate 31 H Blood Pressure 180/106 H Pulse Oximetry 94 94 Oxygen Delivery Method Room Air <Giovana Javier MD - Last Filed: 11/02/23 23:36> Orders Ordered: ED Orders 11/02/23 14:38 Urine Culture Stat Urine Microscopic Stat 11/02/23 15:42 CT abdomen pelvis w con Stat 11/02/23 16:30 CBC Auto Diff [Complete Blood Count AUTO DIFF] Stat CMP [Comprehensive Metabolic Panel] Stat Lipase Stat 11/02/23 18:00 XR chest 1V Stat Lactate (Lactic Acid) Stat 11/02/23 18:12 EKG-12 Lead Stat 11/02/23 19:25 Blood Culture Stat Acetaminophen (Acetaminophen 325 Mg Tablet) 650 mg PO Q6H PRN PRN Reason: Fever/Mild Pain (1-3) Calcium Carbonate (Calcium Carbonate 500 Mg Tab) 1,000 mg PO Q4HR PRN PRN Reason: Dyspepsia Heparin Sodium (Porcine) (Heparin 5,000 Unit/Ml Vial) 5,000 unit SUBCUT BID [facility] Last Admin: 11/02/23 20:18 Dose: 5,000 unit Documented By: FM Sodium Chloride (Normal Saline 0.9%) 1,000 mls @ 100 mls/hr IV CONT [facility] Last Admin: 11/02/23 20:15 Dose: 100 mls/hr Documented By: DIANE Naloxone HCl (Naloxone 0.4 Mg/Ml Vial) 0.2 mg IV Q2MIN PRN PRN Reason: Opiate Reversal Ondansetron HCl (Ondansetron 4 Mg/2 Ml Inj) 4 mg IV Q8HR PRN PRN Reason: Nausea And Vomiting Ondansetron HCl (Ondansetron 4 Mg Odt) 4 mg PO Q8HR PRN PRN Reason: Nausea And Vomiting Discontinued Medications Acetaminophen (Acetaminophen 325 Mg Tablet) 975 mg PO NOW ONE Stop: 11/02/23 15:43 Last Admin: 11/02/23 15:55 Dose: 975 mg Documented By: TIBURCIO Sodium Chloride (Normal Saline 0.9%) 1,000 mls @ 1,000 mls/hr IV BOLUS ONE Stop: 11/02/23 17:45 Last Infusion: 11/02/23 18:05 Dose: Infused Documented By: Admin: 11/02/23 16:47 Dose: 1,000 mls/hr Documented By: JOYCE Ceftriaxone Sodium 1,000 mg/ (Sodium Chloride) 100 mls @ 200 mls/hr IV NOW ONE Stop: 11/02/23 16:50 Last Infusion: 11/02/23 17:37 Dose: Infused Documented By: Admin: 11/02/23 16:56 Dose: 200 mls/hr Documented By: JOYCE Sodium Chloride (Normal Saline 0.9%) 1,000 mls @ 1,000 mls/hr IV BOLUS ONE Stop: 11/02/23 19:18 Last Infusion: 11/02/23 20:27 Dose: Infused Documented By: Infusion: 11/02/23 18:49 Dose: 1,000 mls/hr Documented By: Infusion: 11/02/23 18:49 Dose: 0 mls/hr Documented By: Admin: 11/02/23 18:47 Dose: 1,000 mls/hr Documented By: JOYCE Vital Signs Vital signs: Vital Signs - 8 hr 11/02/23 15:35 11/02/23 15:55 11/02/23 16:20 Temperature 101.6 F H 101.6 F H Pulse Rate Respiratory Rate Blood Pressure 168/83 H Pulse Oximetry Oxygen Delivery Method 11/02/23 16:20 11/02/23 16:30 11/02/23 16:30 Temperature Pulse Rate 118 H 115 H Respiratory Rate Blood Pressure 156/78 H Pulse Oximetry 95 96 Oxygen Delivery Method 11/02/23 16:32 11/02/23 17:00 11/02/23 17:01 Temperature 101.7 F H Pulse Rate 107 H Respiratory Rate Blood Pressure 135/81 Pulse Oximetry 95 Oxygen Delivery Method 11/02/23 17:01 11/02/23 17:30 11/02/23 17:30 Temperature Pulse Rate 107 H 104 H Respiratory Rate Blood Pressure 143/72 H Pulse Oximetry 94 94 Oxygen Delivery Method 11/02/23 17:47 11/02/23 18:06 11/02/23 18:09 Temperature 99.5 F 98.9 F Pulse Rate Respiratory Rate Blood Pressure Pulse Oximetry 92 Oxygen Delivery Method 11/02/23 18:10 11/02/23 18:10 11/02/23 18:30 Temperature Pulse Rate 128 H 122 H Respiratory Rate 31 H Blood Pressure 180/106 H Pulse Oximetry 94 94 Oxygen Delivery Method Room Air MDM - Female Genitourinary <Margot Blackman PA-C - Last Filed: 11/02/23 18:48> Lab Data 11/02/23 16:30 11/02/23 16:30 Labs: Lab Results 11/02/23 11/02/23 11/02/23 Range/Units 14:38 16:30 18:00 WBC 11.4 H (4.5-11.0) X10^3/uL RBC 5.04 (4.0-5.2) X10^6/uL Hgb 12.5 (12.0-16.0) g/dL Hct 38.1 (36-46) % MCV 75.6 L (80-100) fL MCH 24.9 L (26-34) PG MCHC 32.9 (30-36) % RDW 16.1 H (11.6-14.8) % Plt Count 218 (150-400) X10^3/uL Neut % (Auto) 90.6 H (50-75) % Lymph % (Auto) 6.3 L (25-40) % [place] % (Auto) 2.2 L (3-14) % Eos % (Auto) 0.3 L (2-4) % Baso % (Auto) 0.6 (0-2) % Neut # (Auto) 85800 H (4241-7490) /uL Lymph # (Auto) 700 L (6903-6222) /uL [place] # (Auto) 300 (0-900) /uL Eos # (Auto) 0 (0-450) /uL Baso # (Auto) 100 (0-100) /uL Sodium 138 (137-145) mmol/L Potassium 3.4 (3.4-5.1) mmol/L Chloride 108 H (98-107) mmol/L Carbon Dioxide 23 (22-32) mmol/L BUN 16 (7-17) mg/dL Creatinine 1.15 H (0.52-1.04) mg/dL Estimated GFR 50 L (>60) mL/min BUN/Creatinine Ratio 13.9 (6-22) Glucose 110 (80-110) mg/dL Lactate 2.5 H (0.7-2.1) mmol/L Calcium 8.9 (8.4-10.2) mg/dL Total Bilirubin 0.9 (0.2-1.3) mg/dL AST 24 (14-36) IU/L ALT 24 (<35) IU/L Alkaline Phosphatase 104 (38-126) U/L Total Protein 7.1 (6.3-8.2) g/dL Albumin 4.0 (3.5-5.0) g/dL Globulin 3.1 (1.7-4.1) g/dL Albumin/Globulin Ratio 1.3 (1.0-2.8) Lipase 40 (23-300) U/L Urine RBC 5-10/hpf H (0-5/HPF) Urine WBC 30-100/hpf H (0-5/HPF) Ur Squamous Epith Cells 1-5 /hpf (0-5/HPF) Urine Bacteria Few (2-10) H (None) WBC Casts 1-5/lpf H (None) Ur Culture Indicated? Specimen cultured Vol Urine Centrifuged 10ml (spun) Point of Care Testing Glucose POC 110 Urine Dip Bedside Urine Glucose Negative Bedside Urine Bilirubin - Negative Bedside Urine Ketone - Negative Urine Specific [place] 1.015 Bedside Urine Occult Blood +++ Bedside Urine pH 6.0 Bedside Urine Protein + 30 Bedside Urine Urobilinogen - Negative Bedside Urine Nitrite + Positive Bedside Urine Leukocytes ++ 125 Esterase MDM Narrative Medical decision making narrative: 73-year-old female with past medical history hypertension, angioedema, kidney stones present to the ED with 4 days of dysuria. Concern for UTI versus pyelonephritis versus kidney stones versus sepsis versus other intra-abdominal pathology versus other. Obtained labs, lactate, UA, CT abdomen pelvis. patient is febrile to 101.7F and is rigoring. Patient given Tylenol which brought the fever down to 99 F and patient stopped rigoring. CT abdomen pelvis without acute findings. Labs within normal limits. UA shows UTI. Patient given a bolus 1 L of saline, 1 g of IV ceftriaxone. Patient again rigoring. Tachycardic to 122, hypertensive to 180/106 Will obtain chest x-ray, EKG. Will obtain blood cultures. Likely admit. Consulted hospitalist Dr. Rasmussen who graciously accepts the admit. Discussed disposition and plan with patient. She is agreeable. <Giovana Javier MD - Last Filed: 11/02/23 23:36> Lab Data Labs: Lab Results 11/02/23 11/02/23 11/02/23 Range/Units 14:38 16:30 18:00 WBC 11.4 H (4.5-11.0) X10^3/uL RBC 5.04 (4.0-5.2) X10^6/uL Hgb 12.5 (12.0-16.0) g/dL Hct 38.1 (36-46) % MCV 75.6 L (80-100) fL MCH 24.9 L (26-34) PG MCHC 32.9 (30-36) % RDW 16.1 H (11.6-14.8) % Plt Count 218 (150-400) X10^3/uL Neut % (Auto) 90.6 H (50-75) % Lymph % (Auto) 6.3 L (25-40) % [place] % (Auto) 2.2 L (3-14) % Eos % (Auto) 0.3 L (2-4) % Baso % (Auto) 0.6 (0-2) % Neut # (Auto) 38528 H (6923-4295) /uL Lymph # (Auto) 700 L (9377-1418) /uL [place] # (Auto) 300 (0-900) /uL Eos # (Auto) 0 (0-450) /uL Baso # (Auto) 100 (0-100) /uL Sodium 138 (137-145) mmol/L Potassium 3.4 (3.4-5.1) mmol/L Chloride 108 H (98-107) mmol/L Carbon Dioxide 23 (22-32) mmol/L BUN 16 (7-17) mg/dL Creatinine 1.15 H (0.52-1.04) mg/dL Estimated GFR 50 L (>60) mL/min BUN/Creatinine Ratio 13.9 (6-22) Glucose 110 (80-110) mg/dL Lactate 2.5 H (0.7-2.1) mmol/L Calcium 8.9 (8.4-10.2) mg/dL Total Bilirubin 0.9 (0.2-1.3) mg/dL AST 24 (14-36) IU/L ALT 24 (<35) IU/L Alkaline Phosphatase 104 (38-126) U/L Total Protein 7.1 (6.3-8.2) g/dL Albumin 4.0 (3.5-5.0) g/dL Globulin 3.1 (1.7-4.1) g/dL Albumin/Globulin Ratio 1.3 (1.0-2.8) Lipase 40 (23-300) U/L Urine RBC 5-10/hpf H (0-5/HPF) Urine WBC 30-100/hpf H (0-5/HPF) Ur Squamous Epith Cells 1-5 /hpf (0-5/HPF) Urine Bacteria Few (2-10) H (None) WBC Casts 1-5/lpf H (None) Ur Culture Indicated? Specimen cultured Vol Urine Centrifuged 10ml (spun) Point of Care Testing Glucose POC 110 Urine Dip Bedside Urine Glucose Negative Bedside Urine Bilirubin - Negative Bedside Urine Ketone - Negative Urine Specific [place] 1.015 Bedside Urine Occult Blood +++ Bedside Urine pH 6.0 Bedside Urine Protein + 30 Bedside Urine Urobilinogen - Negative Bedside Urine Nitrite + Positive Bedside Urine Leukocytes ++ 125 Esterase Discharge Plan Departure Patient Disposition: Admitted As Inpatient Clinical Impression: UTI (urinary tract infection) Qualifiers: Urinary tract infection type: site unspecified Hematuria presence: with hematuria Qualified Code(s): N39.0 - Urinary tract infection, site not specified Sepsis Qualifiers: Sepsis type: sepsis due to unspecified organism Sepsis acute organ dysfunction status: without acute organ dysfunction Qualified Code(s): A41.9 - Sepsis, unspecified organism Admit Date/Time: 11/02/23 18:45 Admit Provider: Gibson Rasmussen ED Sign-out <Giovana Javier MD - Last Filed: 11/02/23 23:36> Cosign ED Attending Cosignature Attestation: I was immediately available in the department for consultation throughout this patient's visit. Giovana Javier MD
--- NOTE | 2023-11-02 15:42 | DI.CT.S_ITS ---
PROCEDURE: CT ABDOMEN PELVIS W CON INDICATIONS: dysuria; L flank pain TECHNIQUE: After the administration of intravenous contrast, axial sections acquired from the lung bases to the pubic symphysis. Coronal and sagittal reformats were performed. For radiation dose reduction, the following was used: automated exposure control, adjustment of mA and/or kV according to patient size. COMPARISON: [facility], CT, CT ABDOMEN PELVIS WO CON, 10/19/2021, 12:50. FINDINGS: Image quality: Diagnostic. Lower Chest: No significant findings. ABDOMEN: Liver: No solid mass. Diffuse fatty infiltration of the liver. Gallbladder: No radiopaque gallstones or wall thickening. Biliary ducts: No biliary dilation. Pancreas: No ductal dilation. Spleen: Size is within normal limits. Adrenal Glands: No adrenal nodules. Kidneys and Ureters: No hydronephrosis. No solid mass. No complex renal cystic lesion which requires follow up. Stomach and Bowel: Normal colonic caliber, without significant wall thickening. Scattered colonic diverticuli without evidence of diverticulitis. The appendix is normal. Peritoneum: No abnormal intraperitoneal fluid. No free air. Ventral Wall: No significant ventral hernia. Abdominal Nodes: No retroperitoneal or mesenteric adenopathy by size criteria. Vessels: Aorta and inferior vena cava are normal in size. PELVIS: Pelvic Organs: Uterus is absent. Bladder: No bladder wall thickening, accounting for underdistention. Pelvic Nodes: No enlarged lymph nodes. Miscellaneous: No inguinal hernias are seen. Bones: No aggressive osseous abnormality. IMPRESSION: No acute disease process. Colonic diverticulosis without evidence of diverticulitis. Hepatic steatosis. Dictated by: Nanette Vitale MD, PhD on 11/02/2023 at 16:39 Approved by: Nanette Vitale MD, PhD on 11/02/2023 at 16:42
[2023-11-02 15:46] LABS: Urine Volume 10mL (spun)
[2023-11-02 15:47] LABS: Bacteria Urine Few (2-10); Culture Indicated Urine Specimen Cultured; RBC Urine 5-10/HPF (0-5/HPF); Squamous Epithelial Cell Urine 1-5 /HPF (0-5/HPF); WBC Urine 30-100/HPF (0-5/HPF); White Blood Cell Casts Urine 1-5/LPF
[2023-11-02] MEDS: ACETAMINOPHEN 325 MG TABLET 975 MG PO (15:55)
[2023-11-02 16:43] LABS: Add Manual Diff / Slide Review NO; Basophils Absolute Auto 100 /uL (0-100); Basophils Percent Auto 0.6 % (0-2); Eosinophils Absolute Auto 0 /uL (0-450); Eosinophils Percent Auto 0.3 % (2-4); Hematocrit 38.1 % (36-46); Hemoglobin 12.5 g/dL (12.0-16.0); Lymphocytes Absolute Auto 700 /uL (1100-4500); Lymphocytes Percent Auto 6.3 % (25-40); Mean Corpuscular HGB Conc 32.9 % (30-36); Mean Corpuscular Hemoglobin 24.9 PG (26-34); Mean Corpuscular Volume 75.6 fL (80-100); Monocytes Absolute Auto 300 /uL (0-900); Monocytes Percent Auto 2.2 % (3-14); Neutrophils Absolute Auto 10300 /uL (1500-7000); Neutrophils Percent Auto 90.6 % (50-75); Platelet Count 218 X10^3/uL (150-400); Red Blood Cell Count 5.04 X10^6/uL (4.0-5.2); Red Cell Distribution Width 16.1 % (11.6-14.8); White Blood Cell Count 11.4 X10^3/uL (4.5-11.0)
[2023-11-02] MEDS: SODIUM CHLORIDE 0.9% 1,000 ML 1000 ML IV ×2 (16:47→18:47)
[2023-11-02] MEDS: cefTRIAXone 1,000 MG in SODIUM CHLORIDE 0.9% 100 ML 200 MG IV (16:56)
[2023-11-02 17:00] LABS: Alanine Aminotransferase 24 IU/L (<35); Albumin Globulin Ratio 1.3 (1.0-2.8); Alkaline Phosphatase 104 U/L (38-126); Aspartate Aminotransferase 24 IU/L (14-36); BUN Creatinine Ratio 13.9 (6-22); Bilirubin Total 0.9 mg/dL (0.2-1.3); Blood Urea Nitrogen 16 mg/dL (7-17); Calcium 8.9 mg/dL (8.4-10.2); Carbon Dioxide 23 mmol/L (22-32); Chloride 108 mmol/L (98-107); Estimated Glomerular Filt Rate 50 mL/min (>60); Globulin 3.1 g/dL (1.7-4.1); Glucose 110 mg/dL (80-110); HEMOLYSIS < 15 (0-50); Lipase 40 U/L (23-300); Potassium 3.4 mmol/L (3.4-5.1); Sodium 138 mmol/L (137-145); Total Protein 7.1 g/dL (6.3-8.2)
--- NOTE | 2023-11-02 18:00 | DI.RAD.S_ITS ---
PROCEDURE: XR CHEST 1V INDICATIONS: rigors TECHNIQUE: One view of the chest was acquired. COMPARISON: [facility], CR, XR CHEST 1V, 02/21/2019, 14:19. FINDINGS: Surgical changes and devices: None. Lungs and pleura: Lungs are clear. No pleural effusions or pneumothorax. Mediastinum: Mediastinal contours appear normal. Heart size is enlarged. Bones and chest wall: No suspicious bony lesions. Overlying soft tissues appear unremarkable. IMPRESSION: No acute cardiopulmonary pathology. Dictated by: James Ying M.D. on 11/02/2023 at 19:35 Approved by: James Ying M.D. on 11/02/2023 at 19:35
--- NOTE | 2023-11-02 18:17 | EKG_ITS ---
[address] [address] Test Date: 2023-11-02 Pat Name: Judi Pedersen Department: [facility] Room: Gender: Female Computer Programming Supervisor: FERNANDO : 1950 Requested By: Order Number: [id number] Reading MD: Yvan June MD Measurements Intervals Satin Rate: 127 P: 40 NC: 128 QRS: -52 QRSD: 86 T: 65 QT: 290 QTc: 421 Interpretive Statements Sinus tachycardia Left anterior fascicular block Anterolateral infarct , age undetermined Electronically Signed On 11-03-2023 7:49:47 PDT by Yvan June MD
[2023-11-02 18:30] LABS: Lactate (Lactic Acid) 2.5 mmol/L (0.7-2.1)
[2023-11-02 19:42] LABS: Reflexed Lactate in 2 Hours Y
[2023-11-02] MEDS: SODIUM CHLORIDE 0.9% 1,000 ML 100 ML IV (20:15)
[2023-11-02] MEDS: HEPARIN 5,000 UNIT/ML VIAL 5000 UNIT SUBCUT (20:18)
[2023-11-02 20:28] LABS: Lactate 2HR (Lactic Acid Rflx) 1.6 mmol/L (0.7-2.1)
--- NOTE | 2023-11-02 22:45 | P.HP_ITS ---
History of Present Illness History of Present Illness Date Patient Seen: 11/02/23 Time Patient Seen: 21:00 Chief complaint: thinks has UTI Narrative: 73 y/o with PMH of kidney stones, ~ 10 years ago, presented with dysuria, urinary frequency and urinary urgency and nausea. She does complain of left- sided flank pain, but she thinks this is musculoskeletal pain for which she goes to the chiropractor. On admission tachycardic, with elevated lactic acid, with evidence of UTI and sepsis. Started on empiric abx, had IVFs. [facility] Medical History (Updated 11/03/23 @ 03:57 by Lance Crow MD) Refusal of blood transfusions as patient is [employer] Hypertension Surgical History History of hysterectomy Social History marital status: household members: family Smoking Status: Never smoker alcohol intake: current Meds Home Medications and Allergies Home Medications Medication Instructions Recorded Confirmed Type allopurinol 300 mg tablet 300 mg PO DAILY 02/21/19 11/03/23 History calcium carbonate (Calcium 600) 600 mg PO BID 02/21/19 11/03/23 History meclizine 25 mg chewable tablet 25 mg PO TID PRN dizziness #20 tabs 02/21/19 11/03/23 Rx hydrochlorothiazide 12.5 mg capsule 12.5 mg PO DAILY 04/03/19 11/03/23 History amlodipine 2.5 mg tablet 5 mg PO DAILY 05/12/21 11/03/23 History epinephrine 0.3 mg/0.3 mL 0.3 mg (0.3 mL) IM PRN PRN 05/12/21 11/03/23 Rx injection, auto-injector anaphylaxis #1 ea prednisone 20 mg tablet 40 mg (2 x 20 mg) PO DAILY #10 tabs 05/17/21 11/03/23 Rx Allergies Allergy/AdvReac Type Severity Reaction Status Date / Time EDUARDO Inhibitors Allergy Swelling Verified 10/19/21 12:35 of Lip/Tongue/Throat Review of Systems Constitutional Comments: feels weak, had chills Cardiovascular Comments: w/o chest pain or palpitations Respiratory Comments: w/o shortness of breath Gastrointestinal Comments: nausea Genitourinary Comments: see HPI Musculoskeletal Comments: chronic low back pain Exam Vital Signs (past 8 hours): - 11/02/23 15:35 11/02/23 15:55 11/02/23 16:20 Temperature 101.6 F H 101.6 F H Pulse Rate Respiratory Rate Blood Pressure 168/83 H Pulse Oximetry Oxygen Delivery Method Oxygen Flow Rate 11/02/23 16:20 11/02/23 16:30 11/02/23 16:30 Temperature Pulse Rate 118 H 115 H Respiratory Rate Blood Pressure 156/78 H Pulse Oximetry 95 96 Oxygen Delivery Method Oxygen Flow Rate 11/02/23 16:32 11/02/23 17:00 11/02/23 17:01 Temperature 101.7 F H Pulse Rate 107 H Respiratory Rate Blood Pressure 135/81 Pulse Oximetry 95 Oxygen Delivery Method Oxygen Flow Rate 11/02/23 17:01 11/02/23 17:30 11/02/23 17:30 Temperature Pulse Rate 107 H 104 H Respiratory Rate Blood Pressure 143/72 H Pulse Oximetry 94 94 Oxygen Delivery Method Oxygen Flow Rate 11/02/23 17:47 11/02/23 18:06 11/02/23 18:09 Temperature 99.5 F 98.9 F Pulse Rate Respiratory Rate Blood Pressure Pulse Oximetry 92 Oxygen Delivery Method Oxygen Flow Rate 11/02/23 18:10 11/02/23 18:10 11/02/23 18:30 Temperature Pulse Rate 128 H 122 H Respiratory Rate 31 H Blood Pressure 180/106 H Pulse Oximetry 94 94 Oxygen Delivery Method Room Air Oxygen Flow Rate 11/02/23 18:48 11/02/23 18:48 11/02/23 19:00 Temperature Pulse Rate 123 H 122 H Respiratory Rate 28 H Blood Pressure 157/81 H Pulse Oximetry 95 94 Oxygen Delivery Method Room Air Oxygen Flow Rate 11/02/23 19:01 11/02/23 19:01 11/02/23 19:26 Temperature Pulse Rate 122 H Respiratory Rate 35 H Blood Pressure 170/100 H Pulse Oximetry 95 Oxygen Delivery Method Room Air Oxygen Flow Rate 11/02/23 19:30 11/02/23 20:47 Temperature Pulse Rate 115 H 108 H Respiratory Rate 30 H 17 Blood Pressure 104/75 Pulse Oximetry 97 96 Oxygen Delivery Method Oxygen Flow Rate 0 Oxygen Delivery Method Room Air Oxygen Flow Rate 0 Const Other: in no distress HENMT Other: normocephalic Resp Other: normal respiratory effort GI Other: w/o distension or tenderness Skin Other: w/o rashes Neuro Other: w/o deficits Extrem Other: w/o swelling Psych Other: appropriate mood Objective ECG Impression: Sinus tachycardia ~ 125 Labs 11/02/23 16:30 11/02/23 16:30 Labs: Laboratory Results - last 24 hr 11/02/23 11/02/23 11/02/23 14:38 16:30 18:00 WBC 11.4 H RBC 5.04 Hgb 12.5 Hct 38.1 MCV 75.6 L MCH 24.9 L MCHC 32.9 RDW 16.1 H Plt Count 218 Neut % (Auto) 90.6 H Lymph % (Auto) 6.3 L [place] % (Auto) 2.2 L Eos % (Auto) 0.3 L Baso % (Auto) 0.6 Neut # (Auto) 14644 H Lymph # (Auto) 700 L [place] # (Auto) 300 Eos # (Auto) 0 Baso # (Auto) 100 Sodium 138 Potassium 3.4 Chloride 108 H Carbon Dioxide 23 BUN 16 Creatinine 1.15 H Estimated GFR 50 L BUN/Creatinine Ratio 13.9 Glucose 110 Lactate 2.5 H Calcium 8.9 Total Bilirubin 0.9 AST 24 ALT 24 Alkaline Phosphatase 104 Total Protein 7.1 Albumin 4.0 Globulin 3.1 Albumin/Globulin Ratio 1.3 Lipase 40 Urine RBC 5-10/hpf H Urine WBC 30-100/hpf H Ur Squamous Epith Cells 1-5 /hpf Urine Bacteria Few (2-10) H WBC Casts 1-5/lpf H Ur Culture Indicated? Specimen cultured Vol Urine Centrifuged 10ml (spun) 11/02/23 20:05 WBC RBC Hgb Hct MCV MCH MCHC RDW Plt Count Neut % (Auto) Lymph % (Auto) [place] % (Auto) Eos % (Auto) Baso % (Auto) Neut # (Auto) Lymph # (Auto) [place] # (Auto) Eos # (Auto) Baso # (Auto) Sodium Potassium Chloride Carbon Dioxide BUN Creatinine Estimated GFR BUN/Creatinine Ratio Glucose Lactate 1.6 Calcium Total Bilirubin AST ALT Alkaline Phosphatase Total Protein Albumin Globulin Albumin/Globulin Ratio Lipase Urine RBC Urine WBC Ur Squamous Epith Cells Urine Bacteria WBC Casts Ur Culture Indicated? Vol Urine Centrifuged Assessment & Plan Assessment and plan (1) UTI (urinary tract infection): Qualifiers: Hematuria presence: with hematuria Urinary tract infection type: site unspecified Qualified Code(s): N39.0 - Urinary tract infection, site not specified; R31.9 - Hematuria, unspecified Status: Acute (2) PHI (acute kidney injury): Status: Acute (3) Sepsis: Qualifiers: Sepsis acute organ dysfunction status: without acute organ dysfunction Sepsis type: sepsis due to unspecified organism Qualified Code(s): A41.9 - Sepsis, unspecified organism Status: Acute (4) Hypertension: Status: Acute (5) Gout: Status: Acute Assessment & Plan narrative: UTI, Sepsis - cultures pending, empiric Rocephin - Fluid resuscitation in ED, initially hypertensive, restarted IVFs as borderline hypotensive afterwards PHI - IVFs, BMP pending HTN - home HCTZ and Norvasc on hold LBP - chronic, w/o evidence of pyelonephritis or stones on a CT Gout - Allopurinol DVT prophylaxis - heparin Time-Based Coding :: [TOTAL MINUTES] spent with patient and on the chart (including review of chart, obtaining history, exam, reviewing outside data, placing orders, documenting exam and treatment plan, and counseling patient) on [DATE]. Quality VTE Deep Vein Thrombosis/Pulmonary Embolism Present on Admission: No
[2023-11-03 00:10] VITALS: BP 101/58; PULSE 94; RESP 20; TEMP 37.1; O2SAT 96
[2023-11-03 04:26] VITALS: BP 91/66; PULSE 83; RESP 19; TEMP 36.6; O2SAT 96
[2023-11-03 05:26] LABS: Add Manual Diff / Slide Review NO; Basophils Absolute Auto 100 /uL (0-100); Basophils Percent Auto 0.3 % (0-2); Eosinophils Absolute Auto 0 /uL (0-450); Eosinophils Percent Auto 0.1 % (2-4); Hematocrit 32.1 % (36-46); Hemoglobin 10.7 g/dL (12.0-16.0); Lymphocytes Absolute Auto 1300 /uL (1100-4500); Lymphocytes Percent Auto 5.2 % (25-40); Mean Corpuscular HGB Conc 33.2 % (30-36); Mean Corpuscular Hemoglobin 25.1 PG (26-34); Mean Corpuscular Volume 75.8 fL (80-100); Monocytes Absolute Auto 2000 /uL (0-900); Monocytes Percent Auto 8.1 % (3-14); Neutrophils Absolute Auto 21500 /uL (1500-7000); Neutrophils Percent Auto 86.3 % (50-75); Platelet Count 192 X10^3/uL (150-400); Red Blood Cell Count 4.24 X10^6/uL (4.0-5.2); Red Cell Distribution Width 16.3 % (11.6-14.8); White Blood Cell Count 24.9 X10^3/uL (4.5-11.0)
[2023-11-03 05:34] LABS: BUN Creatinine Ratio 13.7 (6-22); Blood Urea Nitrogen 19 mg/dL (7-17); Calcium 7.6 mg/dL (8.4-10.2); Carbon Dioxide 20 mmol/L (22-32); Chloride 111 mmol/L (98-107); Estimated Glomerular Filt Rate 40 mL/min (>60); Glucose 136 mg/dL (80-110); HEMOLYSIS < 15 (0-50); Potassium 3.7 mmol/L (3.4-5.1); Sodium 137 mmol/L (137-145)
--- NOTE | 2023-11-03 07:44 | PM.PN.1 ---
Subjective Subjective Interval history: From H&P: 73 y/o with PMH of kidney stones, ~ 10 years ago, presented with dysuria, urinary frequency and urinary urgency and nausea. She does complain of left-sided flank pain, but she thinks this is musculoskeletal pain for which she goes to the chiropractor. On admission tachycardic, with elevated lactic acid, with evidence of UTI and sepsis. Started on empiric abx, had IVFs. S: She was feeling about 50% better. She was having no abdominal pain, no nausea. He was weak, but denies flank pain. Exam Vital Signs (past 8 hours): - 11/03/23 00:10 11/03/23 04:26 Temperature 98.7 F 97.8 F Pulse Rate 94 H 83 Respiratory Rate 20 19 Blood Pressure 101/58 L 91/66 Pulse Oximetry 96 96 Oxygen Flow Rate 0 0 Oxygen Delivery Method Room Air Oxygen Flow Rate 0 Narrative Exam Narrative: NAD, alert and oriented. Fluent speech. Flat affect. Lungs are clear, normal rate and effort. Heart is regular, no murmur gallop or rub. Abdomen is soft, non distended. Extremities are free of edema. Objective Labs 11/03/23 05:06 11/03/23 05:06 Labs: Laboratory Results - last 24 hr 11/02/23 11/02/23 11/02/23 14:38 16:30 18:00 WBC 11.4 H RBC 5.04 Hgb 12.5 Hct 38.1 MCV 75.6 L MCH 24.9 L MCHC 32.9 RDW 16.1 H Plt Count 218 Neut % (Auto) 90.6 H Lymph % (Auto) 6.3 L [place] % (Auto) 2.2 L Eos % (Auto) 0.3 L Baso % (Auto) 0.6 Neut # (Auto) 59013 H Lymph # (Auto) 700 L [place] # (Auto) 300 Eos # (Auto) 0 Baso # (Auto) 100 Sodium 138 Potassium 3.4 Chloride 108 H Carbon Dioxide 23 BUN 16 Creatinine 1.15 H Estimated GFR 50 L BUN/Creatinine Ratio 13.9 Glucose 110 Lactate 2.5 H Calcium 8.9 Total Bilirubin 0.9 AST 24 ALT 24 Alkaline Phosphatase 104 Total Protein 7.1 Albumin 4.0 Globulin 3.1 Albumin/Globulin Ratio 1.3 Lipase 40 Urine RBC 5-10/hpf H Urine WBC 30-100/hpf H Ur Squamous Epith Cells 1-5 /hpf Urine Bacteria Few (2-10) H WBC Casts 1-5/lpf H Ur Culture Indicated? Specimen cultured Vol Urine Centrifuged 10ml (spun) 11/02/23 11/03/23 20:05 05:06 WBC 24.9 H D RBC 4.24 Hgb 10.7 L Hct 32.1 L MCV 75.8 L MCH 25.1 L MCHC 33.2 RDW 16.3 H Plt Count 192 Neut % (Auto) 86.3 H Lymph % (Auto) 5.2 L [place] % (Auto) 8.1 Eos % (Auto) 0.1 L Baso % (Auto) 0.3 Neut # (Auto) 74163 H Lymph # (Auto) 1300 [place] # (Auto) 2000 H Eos # (Auto) 0 Baso # (Auto) 100 Sodium 137 Potassium 3.7 Chloride 111 H Carbon Dioxide 20 L BUN 19 H Creatinine 1.39 H Estimated GFR 40 L BUN/Creatinine Ratio 13.7 Glucose 136 H Lactate 1.6 Calcium 7.6 L Total Bilirubin AST ALT Alkaline Phosphatase Total Protein Albumin Globulin Albumin/Globulin Ratio Lipase Urine RBC Urine WBC Ur Squamous Epith Cells Urine Bacteria WBC Casts Ur Culture Indicated? Vol Urine Centrifuged [facility] Medical History Refusal of blood transfusions as patient is [employer] Hypertension Surgical History History of hysterectomy Social History marital status: household members: family Smoking Status: Never smoker alcohol intake: current Assessment & Plan Assessment & Plan narrative: UTI, Sepsis. Present on admission and active. - cultures pending, empiric Rocephin - Fluid resuscitation in ED, initially hypertensive, restarted IVFs as borderline hypotensive afterwards PHI. Present on admission and active. - IVFs, BMP pending HTN. Present on admission and active. - home HCTZ and Norvasc on hold LBP. Present on admission and active. - chronic, w/o evidence of pyelonephritis or stones on a CT Gout. Present on admission and active. - Allopurinol PLAN: -continue IV antibiotics, ceftriaxone -continue IVF -OOB, PT eval. -follow cultures. Estimated date of discharge/dispo: Anticipate discharge home on November 03 assuming microbiologic data is available as well as improvement of severe leukocytosis. Time-Based Coding :: 30 min spent with patient and on the chart (including review of chart, obtaining history, exam, reviewing outside data, placing orders, documenting exam and treatment plan, and counseling patient) on 11/02. Quality VTE Deep Vein Thrombosis/Pulmonary Embolism Present on Admission: No
[2023-11-03 08:00] VITALS: BP 94/61; PULSE 79; RESP 16; TEMP 36.6; O2SAT 95
[2023-11-03] MEDS: HEPARIN 5,000 UNIT/ML VIAL 5000 UNIT SUBCUT (09:10)
[2023-11-03] MEDS: cefTRIAXone 1,000 MG in SODIUM CHLORIDE 0.9% 100 ML 200 MG IV (09:11)
[2023-11-03] MEDS: SODIUM CHLORIDE 0.9% 1,000 ML 100 ML IV (09:11)
[2023-11-03] MEDS: allopurinoL 100 MG TABLET 300 MG PO (09:19)
--- NOTE | 2023-11-03 11:10 | PT.IIE ---
Current Diagnoses Sepsis, unspecified organism (11/02/23) Essential (primary) hypertension (11/02/23) Gout, unspecified (11/02/23) Acute kidney failure, unspecified (11/02/23) Urinary tract infection, site not specified (11/02/23) Hematuria, unspecified (11/02/23) Surgical History (Last Reviewed 11/03/23 @ 07:45 by Gibson Rasmussen MD) History of hysterectomy Medical History (Last Reviewed 11/03/23 @ 07:45 by Gibson Rasmussen MD) Hypertension Refusal of blood transfusions as patient is [facility] Inpatient Evaluation/Re-Eval M1 PT/OT-IP Prior Functional Status Start: 11/03/23 12:21 Freq: NEEDED Status: Active Protocol: Document 11/03/23 11:10 AB (Rec: 11/03/23 12:31 AB [id number]) Medical Review Prior Functional Status Medical History Reviewed Yes Communication able to make needs known Mobility and Gait pt stated that she is independent with all mobilities and ambulation without AD Social History Household Members spouse,family,children Living Arrangements House Number of Floors (Floors) Two Floors Number of Stairs To Enter/Railing? 2 steps without rails to enter 14 steps B rails to get to 2nd level bedroom Home Environment High Toilet,Tub/Shower Home Equipment Front Wheel Walker,Shower Seat with Backrest,Hand Held Shower,Grab Bars Near Toilet, Grab Bars In Shower M2 PT-IP Current Condition Start: 11/03/23 12:21 Freq: NEEDED Status: Active Protocol: Document 11/03/23 11:10 AB (Rec: 11/03/23 12:31 AB [id number]) Physical Therapy Current Condition Current Condition Evaluation Date 11/03/23 Treatment Diagnosis UTI; sepsis; generalized weakness Onset Date 11/02/23 M3 PT-IP Subjective Start: 11/03/23 12:21 Freq: NEEDED Status: Active Protocol: Document 11/03/23 11:10 AB (Rec: 11/03/23 12:31 AB [id number]) Subjective Physical Therapy Visit Type Type Initial Evaluation Visit Start Time 11:10 Visit Stop Time 11:35 Number of FLEXIBLE NANNY Visits 0 Physical Therapy Visit Comments Patient Comments agreeable to do PT Therapy Pain Assessment Pain Present Pain Present Denied Pain M4 PT-IP Mobility and Gait Start: 11/03/23 12:21 Freq: NEEDED Status: Active Protocol: Document 11/03/23 11:10 AB (Rec: 11/03/23 12:31 AB [id number]) PT-Bed Mobility Assessment Supine to Sit Supine to Sit Independent Sit to Supine Sit to Supine Independent PT-Transfer Assessment Sit to and From Stand Sit to and from Stand Standby Assistance Equipment Transfer Assistive Device None Orthotic/Prosthetic Devices or Brace: No Comments Mobility Comments pt supine in bed. informed pt regarding PT eval order and pt stated that she does not need PT. informed pt regarding rationale for PT and pt agreed to do PT. obtained PLOF and home set up info. pt completed supine to sit independent. sit to stand SBA and ambulated in room without AD ~ 30 ft SBA. pt sat on EOB. agreed to do steps. positioned step stool and pt completed up/down without AD SBA. repeated x 2. pt refused to sit up on the chair and wants to just go back to bed. completed sit to supine mod I . positioned pt on the bed. call light and table placed within reach. informed pt regarding PT to improve activity tolerance and preventing pt from getting weak but pt stated that she does not want PT. encouraged pt to mobilize and ambulate with nursing staff and pt agreed. informed nurse Gait Assessment Gait Gait Assistance Required: Standby Assistance Distance (Feet) 30 Able to Maintain Weight Bearing Status Yes During Gait Assistive Devices Assistive Device None Orthotic/Prosthetic Devices or Brace: No Factors Limiting Gait Function Factors Limiting Gait Function Decreased Activity Tolerance Stair Climbing Assessment Evaluation Level of Assist On Stairs Standby Assistance Devices Stair Climbing Assistive Devices None Technique/Endurance Stair Climbing Direction Ascend and Descend Stair Climbing Technique Step to Step Number of Steps Climbed 1 Query Text: Stair Climbing Set # Repetitions (reps) 2 PT-Balance Assessment Sitting Balance and Reactions Static Sitting Balance Ability Normal Dynamic Sitting Balance Ability Normal Standing Balance and Reactions Static Standing Balance Ability Good Dynamic Standing Balance Ability Good Device Used without AD M5 PT-IP Objective Assessments Start: 11/03/23 12:21 Freq: NEEDED Status: Active Protocol: Document 11/03/23 11:10 AB (Rec: 11/03/23 12:31 AB [id number]) Orientation Orientation/Cognition Level of Alertness Alert Orientation Name,Situation Language Function Ability No Deficits Noted Safety Awareness Understands Safety Issues Memory Description No Deficits Noted Gross Range of Motion Lower Extremity ROM Assessment Within Functional Limits Strength Lower Extremity Strength Assessment Within Functional Limits Sensation Assessment Sensation Gross Sensation WNL Muscle Tone Muscle Tone WNL Yes M6 PT-IP Treatment Start: 11/03/23 12:21 Freq: NEEDED Status: Active Protocol: Document 11/03/23 11:10 AB (Rec: 11/03/23 12:31 AB [id number]) Physical Therapy Treatment Education Education Provided Safety M7 PT-IP Assessment and Plan Start: 11/03/23 12:21 Freq: NEEDED Status: Active Protocol: Document 11/03/23 11:10 AB (Rec: 11/03/23 12:31 AB [id number]) PT Summary Assessment and Plan Potential Rehabilitation Potential Fair Status of Condition at Evaluation Stable Summary Impairments Gait,Activity Tolerance Assessment Summary pt is a 73 y/o F who is admitted for UTI/sepsis. pt is mod I with bed mobility and SBA with transfers and ambulation without AD. pt lives with faily who can assist her if needed. pt refused further PT. pt to ambulate with nursing staff as tolerated. Frequency of Treatment Frequency Of Treatment Discharge Recommendations To Nursing Amount of Assist Needed Standby Assistance Discharge Recommendations PT Discharge Recommendations Home with Assistance Transportation Needs at Discharge Private Vehicle
[2023-11-03 12:00] VITALS: BP 117/78; PULSE 88; RESP 18; TEMP 37; O2SAT 95
--- NOTE | 2023-11-03 14:26 | CM.DANOTE ---
DCP Assessment Note Pt is a 73yo F here with a UTI. PMH of kidney stones. PCP MAHIN Buckner provider Payer medicare and Eligible for life HOLLOW HANDLE BENCH WORKER reviewed EMR. Per hospitalist, pt getting IV antibiotics, here for another day or so, dc on PO abx. Per PT eval, rec home with assistance. HOLLOW HANDLE BENCH WORKER entered room and introduced self and role. Pt lives indep with spouse, son, and granddaughter in [place]. Drives at baseline. normally ambulates indep but has access to a walker at home. Pt denies any CM needs. Reports family can transport her home when it's time to dc. P: home with family in a day or so. No identified barriers to safe dc home at this time. CM team will follow as needed COURTNEY Arellano Discharge Planning/Care Management CM Discharge Assessment Start: 11/03/23 14:25 Freq: Status: Active Protocol: Document 11/03/23 14:25 (Rec: 11/03/23 14:26 [id number]) Discharge Planning Assessment Assigned Cardiac Catheterization Technician COURTNEY Mott DPOA/Assigned Designee Name ce Stubbs Contact Information [phone] Advance Directives? Yes Advance Directives on File No History Provided By Patient Prior Living Arrangements House Household Members spouse,family,children Type of transporation used prior to Drives own vehicle admit Independent with ADL's Yes Is patient alert and oriented? Yes DME Already Rented / Owned Bath Bench,FWW / Walker Barriers to Discharge No Discharge Plan Home Transportation Arrangement family in [place] Referrals Initiated None needed Whiteboard Updated in Patient Room with Yes name and ext. # of Cardiac Catheterization Technician Review Status In Process Please Provide Date Initial DC 11/03/23 Assessment Was Performed Next Review Type Continued Stay Review
[2023-11-03 16:00] VITALS: BP 132/85; PULSE 90; RESP 14; TEMP 37; O2SAT 95
[2023-11-03 19:30] VITALS: BP 130/76; PULSE 87; RESP 15; TEMP 37; O2SAT 94
[2023-11-03] MEDS: ACETAMINOPHEN 325 MG TABLET 650 MG PO (20:12)
[2023-11-04 03:00] VITALS: BP 132/82; PULSE 86; RESP 18; TEMP 36.8; O2SAT 95
[2023-11-04] MEDS: SODIUM CHLORIDE 0.9% 1,000 ML 50 ML IV (05:23)
[2023-11-04 05:43] LABS: Add Manual Diff / Slide Review NO; Basophils Absolute Auto 0 /uL (0-100); Basophils Percent Auto 0.2 % (0-2); Eosinophils Absolute Auto 100 /uL (0-450); Eosinophils Percent Auto 0.5 % (2-4); Hematocrit 34.6 % (36-46); Hemoglobin 11.2 g/dL (12.0-16.0); Lymphocytes Absolute Auto 1500 /uL (1100-4500); Lymphocytes Percent Auto 8.2 % (25-40); Mean Corpuscular HGB Conc 32.3 % (30-36); Mean Corpuscular Hemoglobin 24.5 PG (26-34); Mean Corpuscular Volume 75.7 fL (80-100); Monocytes Absolute Auto 1300 /uL (0-900); Neutrophils Absolute Auto 15300 /uL (1500-7000); Neutrophils Percent Auto 84.1 % (50-75); Platelet Count 195 X10^3/uL (150-400); Red Blood Cell Count 4.56 X10^6/uL (4.0-5.2); White Blood Cell Count 18.2 X10^3/uL (4.5-11.0)
[2023-11-04 05:58] LABS: BUN Creatinine Ratio 13.3 (6-22); Blood Urea Nitrogen 16 mg/dL (7-17); Carbon Dioxide 21 mmol/L (22-32); Chloride 115 mmol/L (98-107); Estimated Glomerular Filt Rate 48 mL/min (>60); Glucose 126 mg/dL (80-110); HEMOLYSIS < 15 (0-50); Potassium 3.6 mmol/L (3.4-5.1); Sodium 142 mmol/L (137-145)
[2023-11-04 08:00] VITALS: BP 123/91; PULSE 82; RESP 16; TEMP 36.6; O2SAT 95
[2023-11-04] MEDS: cefTRIAXone 1,000 MG in SODIUM CHLORIDE 0.9% 100 ML 200 MG IV (08:46)
[2023-11-04] MEDS: HEPARIN 5,000 UNIT/ML VIAL 5000 UNIT SUBCUT ×2 (08:46→21:29)
[2023-11-04] MEDS: allopurinoL 100 MG TABLET 300 MG PO (08:46)
--- NOTE | 2023-11-04 09:48 | PC.NURSE ---
Patient is alert and oriented x4, iv antibiotic infused, she is hoping to go home today. Pure Wick in place and patient is putting out yellow urine. She denies pain upon urination. Resting now.
[2023-11-04 12:00] VITALS: BP 125/80; PULSE 86; RESP 15; TEMP 36.7; O2SAT 96
--- NOTE | 2023-11-04 12:10 | PM.PN.1 ---
Subjective Subjective Interval history: She feels better. No abdomen pain or nausea. Exam Vital Signs (past 8 hours): - 11/04/23 08:00 Temperature 97.8 F Pulse Rate 82 Respiratory Rate 16 Blood Pressure 123/91 H Pulse Oximetry 95 Oxygen Delivery Method Room Air Oxygen Flow Rate 0 Narrative Exam Narrative: NAD, alert and oriented. Fluent speech. Lungs are clear, normal rate and effort. Heart is regular, no murmur gallop or rub. Abdomen is soft, non distended. No RUQ pain. Extremities are free of edema. Objective Labs 11/04/23 05:09 11/04/23 05:09 Labs: Laboratory Results - last 24 hr 11/04/23 05:09 WBC 18.2 H RBC 4.56 Hgb 11.2 L Hct 34.6 L MCV 75.7 L MCH 24.5 L MCHC 32.3 RDW 16.0 H Plt Count 195 Neut % (Auto) 84.1 H Lymph % (Auto) 8.[address] [place] % (Auto) 7.0 Eos % (Auto) 0.5 L Baso % (Auto) 0.2 Neut # (Auto) 78043 H Lymph # (Auto) 1500 [place] # (Auto) 1300 H Eos # (Auto) 100 Baso # (Auto) 0 Sodium 142 Potassium 3.6 Chloride 115 H Carbon Dioxide 21 L BUN 16 Creatinine 1.20 H Estimated GFR 48 L BUN/Creatinine Ratio 13.3 Glucose 126 H Calcium 8.0 L PFSH Medical History Refusal of blood transfusions as patient is Religious Hypertension Surgical History History of hysterectomy Social History marital status: household members: spouse, family and children Smoking Status: Never smoker alcohol intake: current Assessment & Plan Assessment & Plan narrative: UTI (E. coli, Sepsis. Present on admission and improving. - cultures pending, empiric Rocephin - Fluid resuscitation in ED, initially hypertensive, restarted IVFs as borderline hypotensive afterwards Leukocytosis, present on admission and improving. - White count is still 18,000 today. PHI. Present on admission and improved. - IVFs, BMP pending HTN. Present on admission and active. - home HCTZ and Norvasc on hold. BP still a little low. LBP. Present on admission and active. - chronic, w/o evidence of pyelonephritis or stones on a CT Gout. Present on admission and active. - Allopurinol PLAN: -continue IV antibiotics, ceftriaxone -discontinue IVF -OOB, PT eval. -follow cultures. Estimated date of discharge/dispo: Anticipate discharge home on November 04 assuming improvement of severe leukocytosis. Time-Based Coding :: 30 min spent with patient and on the chart (including review of chart, obtaining history, exam, reviewing outside data, placing orders, documenting exam and treatment plan, and counseling patient) on 11/03. Quality VTE Deep Vein Thrombosis/Pulmonary Embolism Present on Admission: No
[2023-11-04 17:00] VITALS: BP 140/80; PULSE 88; RESP 20; TEMP 36.8; O2SAT 99
[2023-11-04 20:00] VITALS: BP 138/90; PULSE 83; RESP 17; TEMP 37.2; O2SAT 96
[2023-11-04] MEDS: LATANOPROST 0.005% OPHTH 2.5 ML 1 DROPS EYE-BOTH (21:34)
[2023-11-04 23:20] VITALS: BP 119/81; PULSE 76; RESP 19; TEMP 36.8; O2SAT 97
[2023-11-05 05:38] VITALS: BP 131/79; PULSE 75; RESP 19; TEMP 36.6; O2SAT 94
[2023-11-05 08:00] VITALS: BP 147/87; PULSE 74; RESP 19; TEMP 36.6; O2SAT 95
[2023-11-05 08:41] LABS: Add Manual Diff / Slide Review NO; Basophils Absolute Auto 100 /uL (0-100); Basophils Percent Auto 0.5 % (0-2); Eosinophils Absolute Auto 200 /uL (0-450); Eosinophils Percent Auto 1.7 % (2-4); Hematocrit 35.5 % (36-46); Hemoglobin 11.7 g/dL (12.0-16.0); Lymphocytes Absolute Auto 1900 /uL (1100-4500); Lymphocytes Percent Auto 13.3 % (25-40); Mean Corpuscular Hemoglobin 24.7 PG (26-34); Mean Corpuscular Volume 74.7 fL (80-100); Monocytes Absolute Auto 1000 /uL (0-900); Monocytes Percent Auto 7.2 % (3-14); Neutrophils Absolute Auto 11100 /uL (1500-7000); Neutrophils Percent Auto 77.3 % (50-75); Platelet Count 233 X10^3/uL (150-400); Red Blood Cell Count 4.75 X10^6/uL (4.0-5.2); White Blood Cell Count 14.3 X10^3/uL (4.5-11.0)
[2023-11-05 08:54] LABS: BUN Creatinine Ratio 11.5 (6-22); Blood Urea Nitrogen 14 mg/dL (7-17); Calcium 8.7 mg/dL (8.4-10.2); Carbon Dioxide 23 mmol/L (22-32); Chloride 112 mmol/L (98-107); Estimated Glomerular Filt Rate 47 mL/min (>60); Glucose 121 mg/dL (80-110); HEMOLYSIS < 15 (0-50); Potassium 3.9 mmol/L (3.4-5.1); Sodium 141 mmol/L (137-145)
[2023-11-05] MEDS: cefTRIAXone 1,000 MG in SODIUM CHLORIDE 0.9% 100 ML 200 MG IV (09:03)
[2023-11-05] MEDS: HEPARIN 5,000 UNIT/ML VIAL 5000 UNIT SUBCUT (09:04)
[2023-11-05] MEDS: allopurinoL 100 MG TABLET 300 MG PO (09:04)
--- NOTE | 2023-11-05 10:19 | CM.DPC ---
DOMINIQUEP Cont Reviewed chart. Patient discussed in multidisciplinary rounds. Discharge home anticipated today. Discharge home w/family anticipated w/close outpatient follow up. CM team following closely in case any discharge needs or concerns arise. JW
--- NOTE | 2023-11-05 12:31 | PM.DS.1 ---
History of Present Illness History of Present Illness Date Patient Seen: 11/05/23 Time Patient Seen: 12:31 Chief complaint: thinks has UTI Narrative: Per admitting provider, 73 y/o with PMH of kidney stones, ~ 10 years ago, presented with dysuria, urinary frequency and urinary urgency and nausea. She does complain of left-sided flank pain, but she thinks this is musculoskeletal pain for which she goes to the chiropractor. On admission tachycardic, with elevated lactic acid, with evidence of UTI and sepsis. Started on empiric abx, had IVFs. Discharge Providers Provider Date of admission: 11/02/23 18:45 Discharge Date: 11/05/23 Primary care physician: Dudley STOCKTON Provider Consults: 11/02/23 18:52 Consult to Physical Therapy Evaluate & Treat Comment: Physician Instructions: Evaluate and Treat Discharge provider: Christian Call DO Summary Hospital Course Discharge Diagnosis: Acute cystitis, E. coli Present on admission and improving, sepsis ruled out PHI. Present on admission and improved. HTN. Present on admission and active. LBP. Present on admission and active. Gout. Present on admission and active. Hospital Course: 73 F admitted with borderline sepsis on presentation secondary to acute cystitis. She had PHI on presentation, but SOFA score was only 1 over the course of her stay. She improved slowly with ceftriaxone, and urine cultures grew a tomlin sensitive E. coli. Once she felt improved strength, along with improved nausea and pain she was discharged home with augmentin to complete antibiotic therapy for another 5 days after discharge. No other changes were recommended to her home medications at discharge. Time Spent with Patient Time spent: Less than 30 minutes Exam Vital Signs (past 8 hours): - 11/05/23 05:38 11/05/23 08:00 Temperature 97.9 F 97.8 F Pulse Rate 75 74 Respiratory Rate 19 19 Blood Pressure 131/79 147/87 H Pulse Oximetry 94 95 Oxygen Flow Rate 0 Oxygen Delivery Method Room Air Oxygen Flow Rate 0 Narrative Exam Narrative: NAD, alert and oriented. Fluent speech. Lungs are clear, normal rate and effort. Heart is regular, no murmur gallop or rub. Abdomen is soft, non distended. No RUQ pain. Extremities are free of edema. Objective Labs 11/05/23 08:29 11/05/23 08:09 Labs: Laboratory Results - last 24 hr 11/05/23 11/05/23 08:09 08:29 WBC 14.3 H RBC 4.75 Hgb 11.7 L Hct 35.5 L MCV 74.7 L MCH 24.7 L MCHC 33.0 RDW 16.0 H Plt Count 233 Neut % (Auto) 77.3 H Lymph % (Auto) 13.3 L [place] % (Auto) 7.2 Eos % (Auto) 1.7 L Baso % (Auto) 0.5 Neut # (Auto) 12834 H Lymph # (Auto) 1900 [place] # (Auto) 1000 H Eos # (Auto) 200 Baso # (Auto) 100 Sodium 141 Potassium 3.9 Chloride 112 H Carbon Dioxide 23 BUN 14 Creatinine 1.22 H Estimated GFR 47 L BUN/Creatinine Ratio 11.5 Glucose 121 H Calcium 8.7 PFSH Medical History 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 Complete course of antibiotics at home. No other medication changes are required on discharge. Discharge orders & Medications Prescriptions: New amoxicillin-pot clavulanate 875-125 mg tablet 1 tab PO BID 5 Days Qty: 10 0RF Continued hydrochlorothiazide 12.5 mg Capsule 12.5 mg PO DAILY amlodipine 2.5 mg tablet 5 mg PO DAILY epinephrine 0.3 mg/0.3 mL auto-injector 0.3 mg IM PRN PRN (Reason: anaphylaxis) Qty: 1 0RF prednisone 20 mg tablet 40 mg PO DAILY Qty: 10 0RF allopurinol 300 mg tablet 300 mg PO DAILY calcium carbonate [Calcium 600] 600 mg calcium (1,500 mg) Tablet 600 mg PO BID meclizine 25 mg tablet,chewable 25 mg PO TID PRN (Reason: dizziness) Qty: 20 0RF latanoprost 0.005 % drops 1 drp EYE-BOTH BEDTIME amlodipine 10 mg tablet 10 mg PO DAILY glipizide 2.5 mg tablet extended release 24hr 2.5 mg PO DAILY loratadine 10 mg tablet 10 mg PO DAILY brimonidine-timolol [Combigan] 0.2-0.5 % drops 1 drp EYE-BOTH DAILY Patient Comments: [NO ORIGINAL SIG] Follow up/Referrals: ProviderDudley [Primary Care Provider] - Visit Report/Discharge Packet Instructions: Urinary Tract Infection, Amoxicillin and Clavulanic Acid Stand Alone Forms: Patient Portal/API, Stroke Signs & Symptoms Discharge Data Primary Care Provider: Dudley Murdock Quality VTE Deep Vein Thrombosis/Pulmonary Embolism Present on Admission: No
== END 2023-11-05 14:46 | disposition home or self-care (01) | DRG 690 ==
LOC: ED 15:26 → AC 18:45
PROVIDERS: Internal Medicine; Admitting Provider Hospitalist; Emergency Provider Student in an Organized Health Care Education/Training Program; Referring Provider Student in an Organized Health Care Education/Training Program; Visit Provider Hospitalist
DX: N30.01 Acute cystitis with hematuria (principal); N17.9 Acute kidney failure, unspecified; I10 Essential (primary) hypertension; M10.9 Gout, unspecified; G89.29 Other chronic pain; M54.50 Low back pain, unspecified; B96.20 Unspecified Escherichia coli [E. coli] as the cause of diseases classified elsewhere
CPT/HCPCS: 36415; 71045; 74177; 80048; 80053; 81003; 81015; 82962; 83605; 83690; 85025; 87040; 87077; 87086; 87186; 93005; 93010; 96365; 97116; 97161; 99284; 99285; J0696; J1644; Q9967

== ENCOUNTER → 2024-09-25 12:36 | Outpatient (CLI) | payer MEDICARE, OTHER, SELFPAY ==
[2023-11-02 19:26] VITALS: BMI 45.0
--- NOTE | 2024-09-25 12:42 | DI.MG.S_ITS ---
MM screening mammo BI: 09/25/2024. BI-RADS: 2 CLINICAL: 74-year old female for bilateral screening mammogram. Tyrer-Cuzick lifetime risk of 3.6%. No personal or first-degree family history of breast cancer. PRIOR EXAMS 07/26/2023, 06/24/2022, 06/04/2021, 05/30/2020. MAMMOGRAPHY TECHNIQUE: 2D and 3D (tomosynthesis) digital mammographic views obtained, with additional images as needed for full coverage. Current study was also evaluated with a Computer Aided Detection (CAD) system. DENSITY B. There are scattered areas of fibroglandular density. MAMMOGRAPHY FINDINGS Bilateral: Benign-appearing calcifications noted. Typically-benign vascular calcifications also noted. No significant change from comparison. IMPRESSION: * No evidence of malignancy with benign findings. RECOMMENDATIONS Bilateral * Annual screening mammography. OVERALL ASSESSMENT CATEGORY BI-RADS-2: Benign. [employer] recommends annual screening mammography beginning at age 40 for women with average risk of breast cancer. ELECTRONICALLY SIGNED: Jose Licea M.D. on 09/25/2024 at 03:52:49 PM PT Interpreting Station ID: [id number]
== END ==
PROVIDERS: Referring Provider Family Medicine; Visit Provider Family Medicine
DX: Z12.31 Encounter for screening mammogram for malignant neoplasm of breast (principal)
CPT/HCPCS: 77063; 77067

== ENCOUNTER 2024-12-27 13:20 | Emergency (ER) | payer MEDICARE, OTHER, SELFPAY ==
[2023-11-02 19:26] VITALS: BMI 45.0
[2024-12-27] VITALS (12 sets, daily range): BP systolic 133–205; BP diastolic 67–101; PULSE 79–89; RESP 16–17; TEMP 37–37.7; O2SAT 91–99; BMI 43.9
--- NOTE | 2024-12-27 14:57 | DI.RAD.S_ITS ---
PROCEDURE: XR CHEST 1V INDICATIONS: suspected sepsis TECHNIQUE: One view of the chest was acquired. COMPARISON: [facility], CR, XR CHEST 1V, 11/02/2023, 19:03. FINDINGS: Surgical changes and devices: None. Lungs and pleura: Lungs are clear. No pleural effusions or pneumothorax. Mediastinum: Mediastinal contours appear normal. Heart size is normal. Bones and chest wall: No suspicious bony lesions. Overlying soft tissues appear unremarkable. IMPRESSION: No acute cardiopulmonary pathology. Dictated by: James Ying M.D. on 12/27/2024 at 15:38 Approved by: James Ying M.D. on 12/27/2024 at 15:38
[2024-12-27 15:26] LABS: Culture Indicated Urine Specimen Cultured; Ictotest Urine Negative (Negative)
[2024-12-27 15:45] LABS: Add Manual Diff / Slide Review NO; Hematocrit 39.6 % (36-46); Hemoglobin 13.0 g/dL (12.0-16.0); Lymphocytes Absolute Auto 1200 /uL (1100-4500); Mean Corpuscular HGB Conc 32.9 % (30-36); Mean Corpuscular Hemoglobin 24.3 PG (26-34); Mean Corpuscular Volume 73.8 fL (80-100); Platelet Count 249 X10^3/uL (150-400)
[2024-12-27 15:52] LABS: INR 1.2 (0.9-1.3); Prothrombin Time 13.9 SECONDS (9.4-12.5)
[2024-12-27 15:55] LABS: PTT Partial Thromboplastin Tim 30 SECONDS (25.1-36.5)
[2024-12-27 15:56] LABS: Lactate (Lactic Acid) 1.2 mmol/L (0.7-2.1)
[2024-12-27 15:57] LABS: Alanine Aminotransferase 42 IU/L (<35); Albumin 4.2 g/dL (3.5-5.0); Albumin Globulin Ratio 1.2 (1.0-2.8); Alkaline Phosphatase 91 U/L (38-126); Blood Urea Nitrogen 11 mg/dL (7-17); Calcium 9.9 mg/dL (8.4-10.2); Carbon Dioxide 22 mmol/L (22-32); Chloride 105 mmol/L (98-107); Estimated Glomerular Filt Rate 51 mL/min (>60); Globulin 3.4 g/dL (1.7-4.1); Glucose 143 mg/dL (70-99); HEMOLYSIS < 15 (0-50); Lipase 43 U/L (23-300); Potassium 3.9 mmol/L (3.4-5.1); Sodium 138 mmol/L (137-145); Total Protein 7.6 g/dL (6.3-8.2)
[2024-12-27 16:14] LABS: Procalcitonin 4.32 ng/mL (<0.5)
[2024-12-27] MEDS: SODIUM CHLORIDE 0.9% 1,000 ML 1000 ML IV (19:13)
[2024-12-27] MEDS: ACETAMINOPHEN 325 MG TABLET 975 MG PO (21:58)
--- NOTE | 2024-12-27 23:28 | ED.GENADULT ---
HPI - General Adult General Chief complaint: Fever Stated complaint: Chills, shaking x 3 days Time Seen by Provider: 12/27/24 17:49 Source: patient Mode of arrival: Ambulatory History of Present Illness HPI narrative: 74-year-old female has shaking chills for the last 3 days, measured fever 101 at home earlier today, took a leave. No nausea or vomiting. No painful or frequent urination. No diarrhea or loose stools, no black or red stools. Denies cough or chest pain shortness of breath. Denies sore throat ear pain face pain. No injury or trauma new activities. Not recently or currently on antibiotics. Related Data Home Medications ?Medication ?Instructions ?Recorded ?Confirmed allopurinol 300 mg tablet 300 mg PO DAILY 02/21/19 11/03/23 calcium carbonate (Calcium 600) 600 mg PO BID 02/21/19 11/03/23 hydrochlorothiazide 12.5 mg capsule 12.5 mg PO DAILY 04/03/19 11/03/23 amlodipine 2.5 mg tablet 5 mg PO DAILY 05/12/21 11/03/23 amlodipine 10 mg tablet 10 mg PO DAILY 11/03/23 11/03/23 brimonidine 0.2 %-timolol 0.5 % 1 drp EYE-BOTH DAILY 11/03/23 11/03/23 eye drops ([place]) glipizide 2.5 mg tablet, extended 2.5 mg PO DAILY 11/03/23 11/03/23 release 24 hr latanoprost 0.005 % eye drops 1 drp EYE-BOTH BEDTIME 11/03/23 11/03/23 loratadine 10 mg tablet 10 mg PO DAILY 11/03/23 11/03/23 Previous Rx's ?Medication ?Instructions ?Recorded meclizine 25 mg chewable tablet 25 mg PO TID PRN dizziness #20 tabs 02/21/19 epinephrine 0.3 mg/0.3 mL 0.3 mg (0.3 mL) IM PRN PRN 05/12/21 injection, auto-injector anaphylaxis #1 ea prednisone 20 mg tablet 40 mg (2 x 20 mg) PO DAILY #10 tabs 05/17/21 cefdinir 300 mg capsule 300 mg PO BID 10 days #20 caps 12/28/24 Allergies Allergy/AdvReac Type Severity Reaction Status Date / Time EDUARDO Inhibitors Allergy Swelling Verified 10/19/21 12:35 of Lip/Tongue/Throat Patient History Medical History (Updated 12/28/24 @ 02:56 by Boom Cross MD) 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 HEAD: Atraumatic. Normocephalic. EYES: Pupils equal round and reactive. Extraocular motions intact. No scleral icterus. No injection or drainage. ENT: Nose without bleeding, purulent drainage. Throat without erythema, tonsillar hypertrophy or exudate. Airway patent. NECK: Trachea midline. Non tender CARDIOVASCULAR: Regular rate and rhythm without murmurs, gallops, or rubs. RESPIRATORY: Clear to auscultation. Breath sounds equal bilaterally. No wheezes, rales, or rhonchi. GASTROINTESTINAL: Abdomen soft, non-tender, nondistended. EXTREMITIES: No edema or joint tenderness. BACK: Nontender without deformity or crepitance. No flank tenderness. NEURO: AOx3. Motor functions grossly nonfocal. SKIN: No rash or erythema of visible areas Initial Vital Signs Initial Vital Signs: Vital Signs Temperature 99.3 F 12/27/24 14:41 Pulse Rate 89 12/27/24 14:41 Respiratory Rate 17 12/27/24 14:41 Blood Pressure 153/82 H 12/27/24 14:41 Pulse Oximetry 95 12/27/24 14:41 Oxygen Delivery Method Room Air 12/27/24 14:41 Course Orders Ordered: ED Orders 12/27/24 23:16 Covid-19 + FLU A/B + RSV - PCR Stat 12/27/24 23:28 CT abdomen pelvis wo con Stat Ondansetron HCl (Ondansetron 4 Mg/2 Ml Inj) 4 mg IV NOW PRN PRN Reason: Nausea And Vomiting Ondansetron HCl (Ondansetron 4 Mg Odt) 4 mg PO NOW PRN PRN Reason: Nausea And Vomiting Discontinued Medications Acetaminophen (Acetaminophen 325 Mg Tablet) 975 mg PO NOW ONE Stop: 12/27/24 21:53 Last Admin: 12/27/24 21:58 Dose: 975 mg Documented By: KAREN Hydrocodone Bitart/Acetaminophen (Hydrocodone/Acet 5/325 Prepack) 1 bottle MISC DIRECTED ONE Stop: 12/28/24 03:04 Last Admin: 12/28/24 03:21 Dose: 1 bottle Documented By: ERYN Sodium Chloride (Normal Saline 0.9%) 1,000 mls @ 1,000 mls/hr IV BOLUS ONE Stop: 12/27/24 15:55 Last Infusion: 12/27/24 20:45 Dose: Infused Documented By: Admin: 12/27/24 19:13 Dose: 1,000 mls/hr Documented By: FREDDY Ceftriaxone Sodium 1,000 mg/ (Sodium Chloride) 100 mls @ 200 mls/hr IV NOW ONE Stop: 12/27/24 17:53 Last Infusion: 12/27/24 19:55 Dose: Infused Documented By: Admin: 12/27/24 19:14 Dose: 200 mls/hr Documented By: FREDDY Ceftriaxone Sodium 1,000 mg/ (Sodium Chloride) 100 mls @ 200 mls/hr IV NOW ONE Stop: 12/27/24 20:40 Last Admin: 12/27/24 21:01 Dose: Not Given Documented By: FREDDY Ondansetron HCl (Ondansetron 4 Mg Odt Prepack) 1 bottle MISC DIRECTED ONE Stop: 12/28/24 03:04 Last Admin: 12/28/24 03:21 Dose: 1 bottle Documented By: ERYN Vital Signs Vital signs: Vital Signs - 8 hr 12/27/24 21:39 12/27/24 21:58 12/27/24 22:25 Temperature 100 F H 100 F H Pulse Rate 87 85 Respiratory Rate 16 Blood Pressure 179/86 H Pulse Oximetry 99 99 Oxygen Delivery Method Room Air 12/27/24 22:26 12/27/24 22:26 12/27/24 22:30 Temperature Pulse Rate 84 84 Respiratory Rate Blood Pressure 180/81 H Pulse Oximetry 92 92 Oxygen Delivery Method 12/27/24 22:30 12/27/24 23:13 12/27/24 23:14 Temperature Pulse Rate 80 83 Respiratory Rate Blood Pressure 177/82 H Pulse Oximetry 91 91 Oxygen Delivery Method 12/27/24 23:14 12/27/24 23:20 12/27/24 23:30 Temperature 98.6 F Pulse Rate 79 Respiratory Rate Blood Pressure 133/73 Pulse Oximetry 91 Oxygen Delivery Method 12/27/24 23:30 12/28/24 00:00 12/28/24 00:30 Temperature Pulse Rate 80 78 Respiratory Rate Blood Pressure 138/67 Pulse Oximetry 93 92 Oxygen Delivery Method 12/28/24 01:00 12/28/24 01:30 12/28/24 02:00 Temperature Pulse Rate 78 76 77 Respiratory Rate Blood Pressure Pulse Oximetry 92 87 L 92 Oxygen Delivery Method 12/28/24 03:28 Temperature Pulse Rate 80 Respiratory Rate 18 Blood Pressure 145/76 H Pulse Oximetry 92 Oxygen Delivery Method Medical Decision Making Lab Data Lab results reviewed: Yes I reviewed the patient's lab results. Lab results narrative: White blood cell count 63689, hemoglobin 13.0, platelets adequate. Glucose 143. Renal function normal, serum CO2 and electrolytes normal. Slight elevation ALT, other liver functions normal. Lipase normal. Urinalysis shows inflammatory cells and bacteria, urine culture triggered by protocol. 12/27/24 15:32 12/27/24 15:32 Labs: Lab Results 12/27/24 12/27/24 12/27/24 Range/Units 14:57 15:32 23:16 WBC 10.5 (4.5-11.0) X10^3/uL RBC 5.36 H (4.0-5.2) X10^6/uL Hgb 13.0 (12.0-16.0) g/dL Hct 39.6 (36-46) % MCV 73.8 L (80-100) fL MCH 24.3 L (26-34) PG MCHC 32.9 (30-36) % RDW 16.8 H (11.6-14.8) % Plt Count 249 (150-400) X10^3/uL Neut % (Auto) 77.0 H (50-75) % Lymph % (Auto) 11.1 L (25-40) % [place] % (Auto) 11.2 (3-14) % Eos % (Auto) 0.1 L (2-4) % Baso % (Auto) 0.6 (0-2) % Neut # (Auto) 8100 H (9716-2537) /uL Lymph # (Auto) 1200 (3073-9553) /uL [place] # (Auto) 1200 H (0-900) /uL Eos # (Auto) 0 (0-450) /uL Baso # (Auto) 100 (0-100) /uL PT 13.9 H (9.4-12.5) SECONDS INR 1.2 (0.9-1.3) APTT 30 (25.1-36.5) SECONDS Sodium 138 (137-145) mmol/L Potassium 3.9 (3.4-5.1) mmol/L Chloride 105 (98-107) mmol/L Carbon Dioxide 22 (22-32) mmol/L BUN 11 (7-17) mg/dL Creatinine 1.13 H (0.52-1.04) mg/dL Estimated GFR 51 L (>60) mL/min BUN/Creatinine Ratio 9.7 (6-22) Glucose 143 H (70-99) mg/dL Lactate 1.2 (0.7-2.1) mmol/L Calcium 9.9 (8.4-10.2) mg/dL Total Bilirubin 0.8 (0.2-1.3) mg/dL AST 34 (14-36) IU/L ALT 42 H (<35) IU/L Alkaline Phosphatase 91 (38-126) U/L Total Protein 7.6 (6.3-8.2) g/dL Albumin 4.2 (3.5-5.0) g/dL Globulin 3.4 (1.7-4.1) g/dL Albumin/Globulin Ratio 1.2 (1.0-2.8) Lipase 43 (23-300) U/L Procalcitonin 4.32 H (<0.5) ng/mL Ur Bilirubin Confirm Negative (Negative) Urine RBC 5-10/hpf H (0-5/HPF) Urine WBC 10-30/hpf H (0-5/HPF) Ur Squamous Epith Cells 5-10 /hpf H (0-5/HPF) Amorphous Sediment 2+ Urine Bacteria Many (>30) H (None) Ur Culture Indicated? Specimen cultured Vol Urine Centrifuged 10ml (spun) SARS-CoV-2 (PCR) Negative (Negative) Influenza A (RT-PCR) Flu a negative (NEGATIVE) Influenza B (RT-PCR) Flu b negative (NEGATIVE) RSV (PCR) Negative (Negative) Urine Dip Bedside Urine Glucose Negative Bedside Urine Bilirubin + 1 Bedside Urine Ketone - Negative Urine Specific [place] 1.005 Bedside Urine Occult Blood ++ Bedside Urine pH 7.0 Bedside Urine Protein - Negative Bedside Urine Urobilinogen - Negative Bedside Urine Nitrite + Positive Bedside Urine Leukocytes +++ 500 Esterase Point of care testing: Urine Dip Bedside Urine Glucose Negative Bedside Urine Bilirubin + 1 Bedside Urine Ketone - Negative Urine Specific [place] 1.005 Bedside Urine Occult Blood ++ Bedside Urine pH 7.0 Bedside Urine Protein - Negative Bedside Urine Urobilinogen - Negative Bedside Urine Nitrite + Positive Bedside Urine Leukocytes +++ 500 Esterase Imaging Data Chest x-ray: Radiologist's Impression: [address] [address] XRay Report Signed Patient: Judi Pedersen MR#: [id number] : 1950 Acct:[id number] Age/Sex: 74 / F Date of Service: 12/27/24 Loc: ED Accession Number: [id number] Procedure: XR chest 1V Ordering Provider: Bela Hughes D.O. PROCEDURE: XR CHEST 1V INDICATIONS: suspected sepsis TECHNIQUE: One view of the chest was acquired. COMPARISON: [facility], , XR CHEST 1V, 11/02/2023, 19:03. FINDINGS: Surgical changes and devices: None. Lungs and pleura: Lungs are clear. No pleural effusions or pneumothorax. Mediastinum: Mediastinal contours appear normal. Heart size is normal. Bones and chest wall: No suspicious bony lesions. Overlying soft tissues appear unremarkable. IMPRESSION: No acute cardiopulmonary pathology. Dictated by: James Ying M.D. on 12/27/2024 at 15:38 Approved by: James Ying M.D. on 12/27/2024 at 15:38 CT scan - abdomen/pelvis: Radiologist's Impression: [address] [address] [address] Scan Report Signed Patient: Judi Pedersen MR#: [id number] : 1950 Acct:[id number] Age/Sex: 74 / F Date of Service: 12/27/24 Loc: ED Accession Number: [id number] Procedure: CT abdomen pelvis wo con Ordering Provider: Boom Cross MD PROCEDURE: CT ABDOMEN PELVIS WO CON INDICATIONS: shaking chills, hi Procalcit, eval for stones, UTI susp TECHNIQUE: CT of the abdomen and pelvis was obtained without intravenous contrast. Coronal and sagittal reformats were performed. For radiation dose reduction, the following was used: automated exposure control, adjustment of mA and/or kV according to patient size. COMPARISON: [facility], CT, CT ABDOMEN PELVIS WO CON, 10/19/2021, 12:50. [facility], CT, CT ABDOMEN PELVIS W CON, 11/02/2023, 16:01. FINDINGS: Image quality: Diagnostic. Lower Chest: Previous lower lobe nodule has increased in currently measuring 4 cm compared to 0 9 cm in 202. It is on series 3, image 8. ABDOMEN: Liver: No contour-deforming mass. Liver measures 19 cm steatosis. Gallbladder: No radiopaque gallstones or wall thickening. Biliary ducts: No biliary dilation. Pancreas: No ductal dilation. Spleen: Size is within normal limits. Adrenal Glands: No adrenal nodules. Kidneys and Ureters: No hydronephrosis. No contour-deforming mass. Left perinephric stranding. Stomach and Bowel: Normal colonic caliber, without significant wall thickening. Diverticular are present inflammatory change. Peritoneum: No abnormal intraperitoneal fluid. No free air. Ventral Wall: No significant hernia. Abdominal Nodes: No retroperitoneal or mesenteric adenopathy by size criteria. Vessels: Aorta and inferior vena cava are normal in size. PELVIS: Pelvic Organs: Unremarkable. Bladder: Incompletely distended, limiting evaluation. Pelvic Nodes: No enlarged lymph nodes. Miscellaneous: No inguinal hernias are seen. Bones: No aggressive osseous abnormality. IMPRESSION: Left perinephric stranding. No obstruction. No visualized stone. Appearance can be secondary to potentially a recently passed stone. However, infection or inflammation should also be considered. Recommend correlation to urinalysis as well as symptoms. Diverticulosis. Left lower lobe nodule has increased in size concerning for malignancy. Consider biopsy or PET scan. Dictated by: Gunjan Naik M.D. on 12/28/2024 at 0:38 Approved by: Gunjan Naik M.D. on 12/28/2024 at 0:42 MDM Narrative Medical decision making narrative: 74-year-old female with shaking chills for the last 3 days, fever at home, denies respiratory abdominal/GI symptoms, denies UTI symptoms. History of urinary calculi. Afebrile at triage here. Screening labs pending including urinalysis. Initial lab data: White blood cell count 55497, hemoglobin 13.0, platelets adequate. Glucose 143. Renal function normal, serum CO2 and electrolytes normal. Slight elevation ALT, other liver functions normal. Lipase normal. Urinalysis shows inflammatory cells and bacteria, urine culture triggered by protocol. IV ceftriaxone for UTI coverage. Lactate added, was normal. Procalcitonin was elevated. History of urinary stones. We will obtain CT abdomen and pelvis noncontrast study, evaluate for complicated UTI changes, obstruction/other. Patient agreeable, declines pain medications when offered. Chest x-ray no acute changes, see radiology report. CT abdomen and pelvis report still pending. CT abdomen and pelvis. Impressions: Left perinephric stranding. No obstruction. No visualized stone. Appearance can be secondary to potentially a recently passed stone. However, infection or inflammation should also be considered. Recommend correlation to urinalysis as well as symptoms. Diverticulosis. Left lower lobe nodule has increased in size concerning for malignancy. Consider biopsy or PET scan. See radiology report. No description of any obstructing stone currently in. We will clinically treat for left pyelonephritis. Initial antibiotic dose given, we will prescribe further oral antibiotic cefdinir for discharge. Discharged home. Home pack pain medication given if needed, hydrocodone/APAP home pack. Home pack antinausea medication given to use if needed, ODT ondansetron home pack. Recheck advised with PCP in the next couple of days to review symptoms and also to check results of urine culture. Encouraged to take antibiotics as prescribed. Return precautions discussed. Discharged home. Discharge Plan Departure Patient Disposition: Home Clinical Impression: Acute pyelonephritis, Lung nodule Instructions: DI for Urinary Tract Infection (UTI), DI for Pulmonary Nodule Activity Restrictions/Additional Instructions: Fevers and chills, urinalysis suspicious for urinary tract infection. Culture was sent. IV antibiotics initiated. History of kidney stones noted to my chart in the past. CT abdomen and pelvis was therefore performed, showed inflammatory changes to the left kidney but no stone within the kidney or within the ureteral system, no mentioned of any abscess. Trial of outpatient therapy. Prescription sent for further antibiotics cefdinir to your pharmacy. Take antibiotics as directed. Consider recheck with your regular doctor in the next couple of days to make sure that your symptoms are improving, and to consider checking the results of the urine culture that is sent today. You declined pain medications when offered. But consider use of pain medications if needed, home pack of pain medication provided to use if needed. Home pack of antinausea medication to use if needed. Recheck with your regular doctor above in 2 days. Return earlier for any change worsening symptoms or any concerns prior. Also important in incidentally noted on your CT scan was left lower lobe lung nodule, which has increased in size compared to a old comparison study, concerning for cancerous change. This will need further follow up as an outpatient. Follow up with your regular provider to further workup this incidental finding. Prescriptions: New cefdinir 300 mg capsule 300 mg PO BID 10 Days Qty: 20 0RF No Action hydrochlorothiazide 12.5 mg Capsule 12.5 mg PO DAILY amlodipine 2.5 mg tablet 5 mg PO DAILY epinephrine 0.3 mg/0.3 mL auto-injector 0.3 mg IM PRN PRN (Reason: anaphylaxis) Qty: 1 0RF prednisone 20 mg tablet 40 mg PO DAILY Qty: 10 0RF allopurinol 300 mg tablet 300 mg PO DAILY calcium carbonate [Calcium 600] 600 mg calcium (1,500 mg) Tablet 600 mg PO BID meclizine 25 mg tablet,chewable 25 mg PO TID PRN (Reason: dizziness) Qty: 20 0RF latanoprost 0.005 % drops 1 drp EYE-BOTH BEDTIME amlodipine 10 mg tablet 10 mg PO DAILY glipizide 2.5 mg tablet extended release 24hr 2.5 mg PO DAILY loratadine 10 mg tablet 10 mg PO DAILY brimonidine-timolol [Combigan] 0.2-0.5 % drops 1 drp EYE-BOTH DAILY Patient Comments: [NO ORIGINAL SIG] Referrals: ProviderDudley [Primary Care Provider, Family Practice] Stand Alone Forms: Patient Portal/API
[2024-12-28] VITALS (8 sets, daily range): BP systolic 145–148; BP diastolic 76–84; PULSE 76–80; RESP 18; TEMP 36.8; O2SAT 87–100
[2024-12-28 00:08] LABS: COVID-19 CEPHEID 4-PLEX PCR Negative (Negative); Influenza A - CEPHEID Flu A NEGATIVE (NEGATIVE); Influenza B - CEPHEID Flu B NEGATIVE (NEGATIVE)
[2024-12-28] MEDS: ONDANSETRON 4 MG ODT PREPACK 1 BOTTLE MISC (03:21)
--- NOTE | 2024-12-28 03:29 | PC.NURSE ---
explained to pt she was dc, stated she would not have a ride until after 0600, lights dimmed for comfort call marie in reach
== END 2024-12-28 06:52 | disposition home or self-care (01) ==
PROVIDERS: Emergency Medicine; Emergency Provider Emergency Medicine
DX: N10 Acute pyelonephritis (principal); R91.1 Solitary pulmonary nodule
CPT/HCPCS: 36415; 71045; 74176; 80053; 81003; 81015; 83605; 83690; 84145; 85025; 85610; 85730; 87040; 87077; 87086; 87186; 87637; 96361; 96365; 99284; J0696

== ENCOUNTER → 2025-01-07 13:41 | Outpatient (CLI) | payer MEDICARE, OTHER, SELFPAY ==
[2023-11-02 19:26] VITALS: BMI 45.0
--- NOTE | 2025-01-07 13:42 | DI.CT.S_ITS ---
PROCEDURE: CT CHEST W CON INDICATIONS: enlarging pulmonary nodule TECHNIQUE: After the administration of intravenous contrast, 5 mm thick sections acquired from the pulmonary apices to the posterior costophrenic angles. 1 mm axial lung, 5 mm thick coronal and sagittal reformats and 7 mm axial MIP were acquired. For radiation dose reduction, the following was used: automated exposure control, adjustment of mA and/or kV according to patient size. COMPARISON: [facility], CT, CT ABDOMEN PELVIS WO CON, 12/27/2024, 23:48. [facility], CT, CT ABDOMEN PELVIS W CON, 11/02/2023, 16:01. FINDINGS: Image quality: Diagnostic Lungs and pleura: Multiple scattered pulmonary nodules. The largest is in the left costophrenic angle measuring 1.5 x 1.5 cm. This measured 1.1 cm in 11/02/2023. There is a small central cavitation. Multiple other nodules are seen for example in the right lower lung 3/161 measuring 1.1 cm. No pleural effusions. Mediastinum, heart, and esophagus: Coronary calcifications. Small hiatal hernia. Granulomatous calcified lymph nodes are seen. No noncalcified lymph node enlarged by size criteria. Normal heart size. Chest wall and thyroid: Unremarkable Upper abdomen: Partially seen probable hepatomegaly and steatosis. Bones: There are degenerative osseous changes. No aggressive appearing osseous abnormality. IMPRESSION: Multiple pulmonary nodules with irregular margins. Comparing to 2023, the left costophrenic angle nodule identified on recent CT has enlarged. These are concerning for malignancy, either metastatic disease or multiple lung primaries. PET-CT and sampling are recommended. No enlarged noncalcified lymph nodes are identified by size criteria in the chest. Sequelae of granulomatous exposure with calcifications are seen. Other findings above. Dictated by: Christian Neumann M.D. on 01/07/2025 at 15:13 Approved by: Christian Neumann M.D. on 01/07/2025 at 15:17
== END ==
PROVIDERS: Referring Provider Family Medicine; Visit Provider Family Medicine
DX: R91.8 Other nonspecific abnormal finding of lung field (principal); I25.10 Atherosclerotic heart disease of native coronary artery without angina pectoris; K44.9 Diaphragmatic hernia without obstruction or gangrene
CPT/HCPCS: 71260; Q9967

== ENCOUNTER 2025-01-29 09:06 | Emergency (ER) | payer MEDICARE, OTHER, SELFPAY ==
[2023-11-02 19:26] VITALS: BMI 45.0
[2025-01-29 09:16] VITALS: BP 158/88; PULSE 81; RESP 17; TEMP 37.1; O2SAT 93; BMI 45.7
[2025-01-29 09:20] VITALS: PULSE 84; O2SAT 93
--- NOTE | 2025-01-29 09:23 | ED.ABDPAIN ---
HPI - Abdominal Pain General Chief Complaint: Abdominal Pain Stated Complaint: Right side lower back pain, moving to front side Time Seen by Provider: 01/29/25 09:17 History of Present Illness HPI narrative: Patient is a 75-year-old female history of hypertension diabetes presenting today with right lower quadrant pain. She was seen evaluated here last month diagnosed with pyelonephritis discharged home. She reports she continues to have pain ongoing for about the last month but definitely getting worse. Does not take anything at home for pain does not feel nauseous no changes in bowel habits no bloody stools. She had an incidental finding of a left lower lobe nodule she has a scan scheduled coming. She denies any chest pain or palpitations Related Data Home Medications ?Medication ?Instructions ?Recorded ?Confirmed allopurinol 300 mg tablet 300 mg PO DAILY 02/21/19 11/03/23 calcium carbonate (Calcium 600) 600 mg PO BID 02/21/19 11/03/23 hydrochlorothiazide 12.5 mg capsule 12.5 mg PO DAILY 04/03/19 11/03/23 amlodipine 2.5 mg tablet 5 mg PO DAILY 05/12/21 11/03/23 amlodipine 10 mg tablet 10 mg PO DAILY 11/03/23 11/03/23 brimonidine 0.2 %-timolol 0.5 % 1 drp EYE-BOTH DAILY 11/03/23 11/03/23 eye drops ([place]) glipizide 2.5 mg tablet, extended 2.5 mg PO DAILY 11/03/23 11/03/23 release 24 hr latanoprost 0.005 % eye drops 1 drp EYE-BOTH BEDTIME 11/03/23 11/03/23 loratadine 10 mg tablet 10 mg PO DAILY 11/03/23 11/03/23 Previous Rx's ?Medication ?Instructions ?Recorded meclizine 25 mg chewable tablet 25 mg PO TID PRN dizziness #20 tabs 02/21/19 epinephrine 0.3 mg/0.3 mL 0.3 mg (0.3 mL) IM PRN PRN 05/12/21 injection, auto-injector anaphylaxis #1 ea prednisone 20 mg tablet 40 mg (2 x 20 mg) PO DAILY #10 tabs 05/17/21 hydrocodone 5 mg-acetaminophen 325 1 tab PO Q6H PRN pain #10 tabs 01/29/25 mg tablet methocarbamol 500 mg tablet 500 mg PO Q8H PRN muscle spasm #20 01/29/25 tabs Allergies Allergy/AdvReac Type Severity Reaction Status Date / Time EDUARDO Inhibitors Allergy Swelling Verified 10/19/21 12:35 of Lip/Tongue/Throat Patient History Medical History (Updated 01/29/25 @ 11:09 by Zulema Lopez DO) Refusal of blood transfusions as patient is [place]ism Hypertension Surgical History History of hysterectomy Social History marital status: household members: spouse, family and children Smoking Status: Never smoker alcohol intake: current alcohol intake frequency: holidays/special occasions only Exam Initial Vital Signs Initial Vital Signs: Vital Signs Temperature 98.7 F 01/29/25 09:16 Pulse Rate 81 01/29/25 09:16 Respiratory Rate 17 01/29/25 09:16 Blood Pressure 158/88 H 01/29/25 09:16 Pulse Oximetry 93 01/29/25 09:16 Oxygen Delivery Method Room Air 01/29/25 09:16 GENERAL: Alert pleasant 75-year-old female and in no acute distress. HEENT: Head atraumatic,EOMI, pupils reactive, face symmetric, moist mucous membranes CARDIOVASCULAR: Regular rate and rhythm without murmurs, rubs or gallops. RESPIRATORY: Breath sounds equal bilaterally, no wheezes rales or rhonchi. ABDOMEN: Soft tender right lower quadrant pain negative Centeno's sign minor right CVA tenderness EXTREMITIES: Normal range of motion, no clubbing or edema. Neurovascularly intact NEUROLOGICAL: Alert and oriented x4.Normal gait and speech. Cranial nerves II through XII grossly intact. SKIN: Warm, dry, no laceration, no petechiae, no rashes or lesions. Course Orders Ordered: ED Orders 01/29/25 09:23 CT abdomen pelvis w con Stat 01/29/25 09:44 Complete Blood Count AUTO DIFF Stat Comprehensive Metabolic Panel Stat Lipase Stat Discontinued Medications Ketorolac Tromethamine (Ketorolac 30 Mg/Ml Vial) 15 mg IV NOW ONE Stop: 01/29/25 09:24 Last Admin: 01/29/25 10:14 Dose: 15 mg Documented By: [facility] Vital Signs Vital signs: Vital Signs - 8 hr 01/29/25 09:16 Temperature 98.7 F Pulse Rate 81 Respiratory Rate 17 Blood Pressure 158/88 H Pulse Oximetry 93 Oxygen Delivery Method Room Air MDM - Abdominal Pain Lab Data 01/29/25 09:44 01/29/25 09:44 Labs: Lab Results 01/29/25 Range/Units 09:44 WBC 5.8 (4.5-11.0) X10^3/uL RBC 5.48 H (4.0-5.2) X10^6/uL Hgb 13.1 (12.0-16.0) g/dL Hct 40.1 (36-46) % MCV 73.2 L (80-100) fL MCH 23.9 L (26-34) PG MCHC 32.7 (30-36) % RDW 17.0 H (11.6-14.8) % Plt Count 252 (150-400) X10^3/uL Neut % (Auto) 63.2 (50-75) % Lymph % (Auto) 27.5 (25-40) % Alexander % (Auto) 5.3 (3-14) % Eos % (Auto) 2.6 (2-4) % Baso % (Auto) 1.4 (0-2) % Neut # (Auto) 3700 (9459-4248) /uL Lymph # (Auto) 1600 (5702-0226) /uL Alexander # (Auto) 300 (0-900) /uL Eos # (Auto) 100 (0-450) /uL Baso # (Auto) 100 (0-100) /uL Sodium 139 (137-145) mmol/L Potassium 3.8 (3.4-5.1) mmol/L Chloride 107 (98-107) mmol/L Carbon Dioxide 21 L (22-32) mmol/L BUN 22 H (7-17) mg/dL Creatinine 1.05 H (0.52-1.04) mg/dL Estimated GFR 55 L (>60) mL/min BUN/Creatinine Ratio 21.0 (6-22) Glucose 198 H (70-99) mg/dL Calcium 9.2 (8.4-10.2) mg/dL Total Bilirubin 0.5 (0.2-1.3) mg/dL AST 33 (14-36) IU/L ALT 29 (<35) IU/L Alkaline Phosphatase 93 (38-126) U/L Total Protein 7.7 (6.3-8.2) g/dL Albumin 4.4 (3.5-5.0) g/dL Globulin 3.3 (1.7-4.1) g/dL Albumin/Globulin Ratio 1.3 (1.0-2.8) Lipase 87 (23-300) U/L Point of care testing: Urine Dip Bedside Urine Glucose Negative Bedside Urine Bilirubin - Negative Bedside Urine Ketone - Negative Urine Specific [place] 1.010 Bedside Urine Occult Blood - Negative Bedside Urine pH 6.0 Bedside Urine Protein +/- 15 Bedside Urine Urobilinogen - Negative Bedside Urine Nitrite - Negative Bedside Urine Leukocytes - Negative Esterase Imaging Data CT scan - abdomen/pelvis: Radiologist's Impression: PROCEDURE: CT ABDOMEN PELVIS W CON INDICATIONS: Right lower quad pain TECHNIQUE: After the administration of intravenous contrast, axial sections acquired from the lung bases to the pubic symphysis. Coronal and sagittal reformats were performed. For radiation dose reduction, the following was used: automated exposure control, adjustment of mA and/or kV according to patient size. COMPARISON: [facility], CT, CT ABDOMEN PELVIS W CON, 11/02/2023, 16:01. FINDINGS: Image quality: Diagnostic. Lower Chest: Small hiatal hernia.. ABDOMEN: Liver: No solid mass. Hepatic steatosis. Focal fatty sparing along the gallbladder fossa. Gallbladder: No radiopaque gallstones or wall thickening. Biliary ducts: No biliary dilation. Pancreas: No ductal dilation. Spleen: Size is within normal limits. Adrenal Glands: No adrenal nodules. Kidneys and Ureters: No hydronephrosis. No solid mass. No complex renal cystic lesion which requires follow up. Stomach and Bowel: Normal colonic caliber, without significant wall thickening. Normal appendix. Peritoneum: No abnormal intraperitoneal fluid. No free air. Ventral Wall: Small fat containing periumbilical hernia. Abdominal Nodes: No retroperitoneal or mesenteric adenopathy by size criteria. Vessels: Aorta and inferior vena cava are normal in size. PELVIS: Pelvic Organs: Post hysterectomy.. Bladder: No bladder wall thickening, accounting for underdistention. Pelvic Nodes: No enlarged lymph nodes. Miscellaneous: No inguinal hernias are seen. Bones: No aggressive osseous abnormality. IMPRESSION: 1. No acute abnormality in the abdomen or pelvis. 2. Incidental findings as above. Dictated by: Arnie Gonzalez M.D. on 01/29/2025 at 10:29 Approved by: Arnie Gonzalez M.D. on 01/29/2025 at 10:31 [facility] Narrative Medical decision making narrative: SAVITA CC: Abdominal pain Complicating co-morbidities: Recent pyelonephritis and multiple pulmonary nodules Data collected from: Patient Medical records reviewed: ED visit reviewed, chest CT from 01/07/2025 reviewed Differential considered: Metastatic disease, bowel obstruction, nephrolithiasis appendicitis diverticulitis cholelithiasis Exam documented above, pertinent findings include: Alert pleasant 75-year-old female no acute distress abdomen is tender more on the right than the left no significant distention Lab Test results independently reviewed as above. Pertinent findings: CBC no leukocytosis no anemia Electrolytes within normal limits no PHI glucose 198 no evidence of DKA Bilirubin liver enzymes within normal limits Independently reviewed EKG as above none Imaging studies independently reviewed: CT abdomen pelvis no acute abnormality Consultations: None Treatments: Toradol Re-evaluations: Patient is feeling better after Toradol but pain not totally gone. Discussion: Patient has multiple scattered pulmonary nodules the largest is 1.5 x 1.5 cm. Having ongoing pain and back pain. This actually maybe musculoskeletal. CT and blood work for abdominal pain or overall reassuring. She has no metastatic disease. No bony Mets. She has not had any change in bowel habits no bloody stool she has had a colonoscopy but it was a number of years ago. She initially wanted some more pain medication however she does have to drive herself so we discussed about pain meds and muscle relaxers. She is given copies of her CT chest and CT abdomen pelvis today. She plans on still getting her PET scan and following up with her primary care provider. Discharge Plan Departure Patient Disposition: Home Clinical Impression: Abdominal pain, Back pain Instructions: DI for Abdominal Pain-Adult Activity Restrictions/Additional Instructions: *You have been diagnosed with abdominal pain back pain *What to do: At this time increase activity as tolerated. You must still get your PET scan to look at the nodules in your lungs. Talk to your primary care provider you may also need colonoscopy *Continue to take medications as directed Motrin 600 mg every 6 hours for [id number] pain Robaxin 500 mg every 8 hours if needed for muscle spasm Mckean 1 tablet every 6 hours if needed for severe pain Colace-or MiraLax as needed for constipation *Follow up with your primary care provider in 2-3 days or call [phone] *Return to ER if you should have increasing pain [or] any new, worsening or concerning symptoms Prescriptions: New hydrocodone-acetaminophen 5-325 mg tablet 1 tab PO Q6H PRN (Reason: pain) Qty: 10 0RF methocarbamol 500 mg tablet 500 mg PO Q8H PRN (Reason: muscle spasm) Qty: 20 0RF No Action hydrochlorothiazide 12.5 mg Capsule 12.5 mg PO DAILY amlodipine 2.5 mg tablet 5 mg PO DAILY epinephrine 0.3 mg/0.3 mL auto-injector 0.3 mg IM PRN PRN (Reason: anaphylaxis) Qty: 1 0RF prednisone 20 mg tablet 40 mg PO DAILY Qty: 10 0RF allopurinol 300 mg tablet 300 mg PO DAILY calcium carbonate [Calcium 600] 600 mg calcium (1,500 mg) Tablet 600 mg PO BID meclizine 25 mg tablet,chewable 25 mg PO TID PRN (Reason: dizziness) Qty: 20 0RF latanoprost 0.005 % drops 1 drp EYE-BOTH BEDTIME amlodipine 10 mg tablet 10 mg PO DAILY glipizide 2.5 mg tablet extended release 24hr 2.5 mg PO DAILY loratadine 10 mg tablet 10 mg PO DAILY brimonidine-timolol [Combigan] 0.2-0.5 % drops 1 drp EYE-BOTH DAILY Patient Comments: [NO ORIGINAL SIG] Referrals: Rafal Moody MD [Primary Care Provider, Family Practice] Stand Alone Forms: Patient Portal/API
[2025-01-29 09:30] VITALS: PULSE 82; O2SAT 92
[2025-01-29 09:52] LABS: Add Manual Diff / Slide Review NO; Hematocrit 40.1 % (36-46); Hemoglobin 13.1 g/dL (12.0-16.0); Lymphocytes Absolute Auto 1600 /uL (1100-4500); Mean Corpuscular HGB Conc 32.7 % (30-36); Mean Corpuscular Hemoglobin 23.9 PG (26-34); Mean Corpuscular Volume 73.2 fL (80-100); Platelet Count 252 X10^3/uL (150-400)
[2025-01-29 10:00] VITALS: PULSE 77; O2SAT 91
[2025-01-29 10:05] LABS: Alanine Aminotransferase 29 IU/L (<35); Albumin 4.4 g/dL (3.5-5.0); Albumin Globulin Ratio 1.3 (1.0-2.8); Alkaline Phosphatase 93 U/L (38-126); Blood Urea Nitrogen 22 mg/dL (7-17); Calcium 9.2 mg/dL (8.4-10.2); Carbon Dioxide 21 mmol/L (22-32); Chloride 107 mmol/L (98-107); Estimated Glomerular Filt Rate 55 mL/min (>60); Globulin 3.3 g/dL (1.7-4.1); Glucose 198 mg/dL (70-99); HEMOLYSIS 26 (0-50); Lipase 87 U/L (23-300); Potassium 3.8 mmol/L (3.4-5.1); Sodium 139 mmol/L (137-145); Total Protein 7.7 g/dL (6.3-8.2)
[2025-01-29] MEDS: KETOROLAC 30 MG/ML VIAL 15 MG IV (10:14)
[2025-01-29 10:30] VITALS: PULSE 83; O2SAT 94
[2025-01-29 11:00] VITALS: PULSE 71; O2SAT 93
== END 2025-01-29 11:20 | disposition home or self-care (01) ==
PROVIDERS: Emergency Provider Emergency Medicine; PCP Family Medicine
DX: R10.31 Right lower quadrant pain (principal); R91.8 Other nonspecific abnormal finding of lung field; M54.9 Dorsalgia, unspecified
CPT/HCPCS: 36415; 74177; 80053; 81003; 83690; 85025; 96374; 99284; J1885; Q9967